=== PATIENT | female | born 1960 | race Caucasian/White ===

== ENCOUNTER 2021-12-22 15:51 | Outpatient (REF) | payer BC, SELFPAY ==
[2021-12-22 17:51] LABS: SARS PCR* Negative SARS-CoV-2 (Negative)
== END 2021-12-22 15:52 | disposition home or self-care (01) ==
LOC: NPINS 15:51
PROVIDERS: PCP Physician Assistant Medical; Visit Provider Podiatrist
DX: Z20.822 Contact with and (suspected) exposure to COVID-19 (principal)
CPT/HCPCS: 87635

== ENCOUNTER 2021-12-25 10:40 | Day surgery (SDC) | payer BC, SELFPAY ==
--- NOTE | 2021-12-25 10:42 | CRLHL7_ITS ---
For Patients: As a result of the Century Cures Act, medical imaging exams and procedure reports are released immediately into your electronic medical record. You may view this report before your referring provider. If you have questions, please contact your health care provider. Indication: INTRA OP LT BUNIONECTOMY Technique: Two fluoroscopic images of the left foot. Fluoroscopic time 25.0 seconds. IMPRESSION: Fluoroscopic guidance for Lapidus bunionectomy. Dictated by Julius Fischer MD @ 12/25/2021 3:51:24 PM (Electronically Signed)
[2021-12-25] MEDS: LACTATED RINGERS 1000 ML 1,000 ML 100 ML IV (11:30)
[2021-12-25] MEDS: SODIUM CHLORIDE 0.9 % (FLUSH) 10 ML SYRINGE IVF (15:48)
[2021-12-25 16:00] VITALS: BP 135/86; PULSE 78; RESP 16; TEMP 36.1; O2SAT 100
--- NOTE | 2021-12-25 16:00 | W.ANESCHARGE ---
Anesthesia Charges Start Date/Time Anesthesia Start Date: 12/25/21 Anesthesia Start Time: 13:37 Stop Date/Time Anesthesia Stop Date: 12/25/21 Anesthesia Stop Time: 15:56 Summary Emergency: No
[2021-12-25 16:15] VITALS: BP 135/86; PULSE 68; RESP 16; O2SAT 97
[2021-12-25 16:30] VITALS: BP 144/91; PULSE 68; RESP 16; O2SAT 97
--- NOTE | 2021-12-25 16:45 | PM.GSPRC ---
Operative Note Date of procedure: 12/25/21 Type of Procedure: 1. Lapidus bunionectomy left foot Procedure Description: After discussing the risks and benefits of the procedure, the patient signed informed consent.? The operative site was marked and the patient was brought to the operating room and placed on the operating table in supine position.? Care was taken to pad the patient's pressure points.?? The patient was then [intubated/given sedation] by anesthesia.?? The operative site was then prepped and draped in the usual sterile fashion.? A time-out was then performed. The left foot was exsanguinated and the tourniquet inflated to 250 mmHg. Dorsomedial incision was made over the 1st metatarsal cuneiform joint and extended down to the dorsal medial aspect of the 1st metatarsophalangeal joint. Incision is carried down through skin subcutaneous tissues. Blunt dissection was carried down to the joint capsule at the 1st MPJ. A T-shaped capsular incision was performed the capsular tissue reflected away from the 1st metatarsal head. Blunt dissection was carried down into the 1st intermetatarsal space. Standard lateral release was not performed releasing the plantar medial joint capsule, the dorsal fibular sesamoidal ligament, and the adductor tendon. We then retracted the extensor tendon laterally at the 1st metatarsal cuneiform joint. Neurovascular structures were carefully protected throughout the case. Joint was identified and incised. A dorsally placed joint distractor was applied and the joint distracted. Using combination of osteotome, curette and sagittal saw the opposing fusion surfaces were prepped down to bleeding subchondral bone. The opposing joint surfaces were then fenestrated with a drill and fish-scaled with an osteotome. Small stab incision was made over the dorsal aspect of the 2nd metatarsal neck. Blunt dissection was carried down to the lateral aspect of the metatarsal neck. The Lapifuse jig was applied and the 1st metatarsal was rotated and reduced in all 3 planes into the appropriate position. C-arm confirmed perfect alignment. Guide pin was then placed in the plantar medial 1st metatarsal base and driven across the fusion site into the middle cuneiform. C-arm confirmed position and a 4.0 cannulated screw was inserted using standard technique. Excellent compression noted across the fusion site. A plate was then applied to the dorsal medial aspect of the 1st metatarsal cuneiform joint fusion. It was anchored with 3.5 mm locking screws x4. The 1st metatarsal head was then remodeled using a sagittal saw and rotary bur. C-arm images confirmed excellent bunion correction and hardware placement. Redundant capsular tissue was excised. The operative site was thoroughly irrigated with normal sterile saline. The joint capsule was repaired with 3-0 Vicryl. Subcutaneous tissues reapproximated with 4-0 Monocryl. Skin closed with 4-0 Prolene. Sterile dressings were then applied. Tourniquet was released and capillary fill time returned to normal to all digits. Well-padded cam boot applied. The patient was then woken and transported to the recovery area in stable condition. The patient tolerated the procedure well. He will be discharged per Anesthesia. Both written and verbal postoperative instructions given. Oxycodone for pain. Weightbearing as tolerated to the heel in the Cam boot with crutch assistance. She will follow-up in 2-3 days. Implants: [place] Lapifuse plate, 3.5 mm cortical locking screws x4, 4.0 cannulated screw x1. Anesthesia: MAC Surgeon: Ben Sue DPM Estimated blood loss (mL): 10 Condition: stable Disposition: same day
--- NOTE | 2021-12-26 06:42 | W.ANESCHARGE ---
Anesthesia Charges Start Date/Time Anesthesia Start Date: 12/25/21 Anesthesia Start Time: 13:37 Stop Date/Time Anesthesia Stop Date: 12/25/21 Anesthesia Stop Time: 15:56 Summary Emergency: No
== END 2021-12-25 15:40 | disposition home or self-care (01) ==
PROVIDERS: PCP Physician Assistant Medical; Visit Provider Podiatrist
PROC: (CPT 28292; principal; 2021-12-25 12:30)
DX: M21.612 Bunion of left foot (principal); M20.12 Hallux valgus (acquired), left foot
CPT/HCPCS: 28297; 01480; 73620; 76000; J2250; J2704; J3010; J7120

== ENCOUNTER 2023-01-29 09:01 | Outpatient (CLI) | payer BC, SELFPAY ==
--- NOTE | 2023-01-29 09:15 | MR_ITS ---
[address] [address] Phone:?[phone] Fax:?[phone] Referring Physician Information: Francisco Chavez M.D. [id number] [facility] [address] Phone:?[phone] Fax:?[phone] Patient:Laya Souza D.O.B:?1960 Sex:?Female Phone:?[phone] [facility] MRN:?[id number] Exam Date:?01/29/2023 EXAM: MRI of the LEFT KNEE, without contrast CLINICAL HISTORY: Left knee pain. Evaluate for meniscal tear. COMPARISONS: MRI 11/18/2020. TECHNICAL: MR sequences of the left knee: sagittals: PD, PDFS coronals: PD, STIR axials: PD, T2 FS CONTRAST: None SEDATION: None FINDINGS: Bones: No fracture or destructive osseous lesion is seen. Patellofemoral joint: Cartilage: Intact. Retinacula: The medial and lateral retinacula are intact. Fat pads: The infrapatellar, quadriceps, and prefemoral fat pads are unremarkable. Knee joint: Effusion: Small left knee joint effusion. Popliteal cyst: Moderately sized perforated popliteal cyst. Intra-articular bodies: None. Posteromedial corner: The semimembranosus and pes anserine tendons are intact. Medial compartment: Medial meniscus: There is undersurface fraying versus ill-defined undersurface tear of the body/posterior horn junction of the medial meniscus measuring 4 mm in length best seen on sagittal images 11 and 12, new compared to previous MRI 11/18/2020. Focal edema-like signal within the peripheral portion of the medial tibial plateau likely reflects reactive bone marrow edema. Cartilage: No discrete chondral defect is seen. Lateral compartment: Lateral meniscus: There is free edge fraying of the body of the lateral meniscus, similar compared to previous MRI 11/18/2020. No unstable lateral meniscal tear is seen. Cartilage: Intact. Ligaments: Anterior cruciate ligament: Intact. Posterior cruciate ligament: Intact. Medial collateral ligament: Intact. Posterior oblique ligament: Intact. Fibular collateral ligament: Intact. Posterolateral corner: The distal biceps femoris tendon, iliotibial band, popliteus tendon, popliteus muscle, popliteofibular ligament, and arcuate ligament are intact. Extensor mechanism: Patellar tendon: Intact. Quadriceps tendon: Intact. There is mild to moderate deep infrapatellar bursitis. IMPRESSION: 1. Undersurface fraying versus ill-defined undersurface tear of the body/posterior horn junction of the medial meniscus measuring 4 mm in length, new compared to previous MRI 11/18/2020. Focal edema-like signal within the peripheral portion of the medial tibial plateau likely reflects reactive bone marrow edema. 2. Free edge fraying of the body of the lateral meniscus, similar compared to previous MRI 11/18/2020. No unstable lateral meniscal tear. 3. Small left knee joint effusion. Mild to moderate deep infrapatellar bursitis. Moderately sized perforated popliteal cyst. 4. No ligamentous injury of the left knee. RCB Electronically signed on 01/29/2023 1:07:00 PM by Lui Badillo M.D.
== END 2023-01-29 09:02 | disposition home or self-care (01) ==
PROVIDERS: PCP Physician Assistant Medical; Visit Provider Orthopaedic Surgery
DX: M25.562 Pain in left knee (principal); S83.242A Other tear of medial meniscus, current injury, left knee, initial encounter; M25.462 Effusion, left knee; M71.562 Other bursitis, not elsewhere classified, left knee
CPT/HCPCS: 73721

== ENCOUNTER 2023-02-14 06:04 | Day surgery (SDC) | payer BC, SELFPAY ==
[2023-02-14] VITALS (11 sets, daily range): BP systolic 91–139; BP diastolic 62–76; PULSE 48–65; RESP 14–16; TEMP 36.2–36.8; O2SAT 97–100; BMI 24.9
[2023-02-14] MEDS: SODIUM CHLORIDE 0.9 % (FLUSH) 10 ML SYRINGE IVF (06:30)
[2023-02-14] MEDS: LACTATED RINGERS 1000 ML 1,000 ML 100 ML IV (06:30)
[2023-02-14] MEDS: CEFAZOLIN 2 GM INJ IVP (07:25)
--- NOTE | 2023-02-14 07:55 | W.ANESCHARGE ---
Anesthesia Charges Start Date/Time Anesthesia Start Date: 02/14/23 Anesthesia Start Time: 07:19 Stop Date/Time Anesthesia Stop Date: 02/14/23 Anesthesia Stop Time: 08:09
[2023-02-14] MEDS: BUPIVACAINE 0.25% 30 ML INJECTION (07:59)
--- NOTE | 2023-02-14 08:08 | W.ANESCHARGE ---
Anesthesia Charges Start Date/Time Anesthesia Start Date: 02/14/23 Anesthesia Start Time: 07:19 Stop Date/Time Anesthesia Stop Date: 02/14/23 Anesthesia Stop Time: 08:09
--- NOTE | 2023-02-14 08:13 | P.ORPRC_ITS ---
Procedure Note Date of procedure: 02/14/23 Procedure: PREOPERATIVE DIAGNOSIS: Left knee medial meniscus tear POSTOPERATIVE DIAGNOSIS: Left knee medial meniscus tear NAME OF OPERATION: Left knee arthroscopic partial medial meniscectomy SURGEON: Francisco Chavez MD MEDICAL LIBRARY ASSISTANT: Em Garcia PA-C ANESTHESIA: Spinal ESTIMATED BLOOD LOSS: 0 mL COMPLICATIONS: None SPECIMENS: None DRAINS: None PREOPERATIVE ANTIBIOTICS: Ancef 2 gram INDICATIONS: The patient is a 62-year-old with a history of left knee medial pain. MRI scan is consistent with a medial meniscus tear. Despite appropriate nonoperative management, including activity modification, antiinflammatories, [id number] pain medication, bracing, physical therapy, and injections they continue to have pain and disability. Operative intervention was offered. The risks, benefits and expected outcomes were discussed in detail. These included but were not limited to: Infection, bleeding, injury to blood vessel or nerve, venous thromboembolism. All questions were answered to their satisfaction. PROCEDURE: Spinal anesthesia was administered. The patient was placed supine on the operating room table. The left lower extremity was prepped and draped in the usual sterile fashion. The limb was exsanguinated with the Jey bandage. The pneumatic tourniquet was inflated to 300 mmHg. A standard anterolateral portal was established. The arthroscope was introduced. The working portal was established anteromedially. Diagnostic arthroscopy was performed with findings as follows: The suprapatellar pouch is normal. Articular surface on the patella is normal. Articular surface on the trochlea is normal. The medial gutter is normal. The medial compartment shows a focal area of grade 2 change on the medial femoral condyle, normal articular cartilage on the medial tibial plateau. The medial meniscus has a degenerative tear of the midbody, into the posterior horn. This primarily consists of leading edge and undersurface degenerative fraying. The posterior root is intact. The notch shows the ACL to be intact. The lateral compartment shows normal articular cartilage on the lateral femoral condyle and lateral tibial plateau. The lateral meniscus has some degenerative fraying of the leading edge of the midbody. The lateral gutter is normal. The the leading edge and undersurface of the posterior horn and midbody of the medial meniscus was debrided to a stable base using a combination of baskets and max through both portals. Unstable chondral flaps on the medial femoral condyle were debrided with the shaver. Arthroscopic instruments were removed, the portal sites were Steri-Stripped closed, the knee was infiltrated with 30 mL of 0.25% Marcaine without epinephrine. A dry dressing was applied, the tourniquet was released. Sponge and needle counts were correct x 2. The patient tolerated the procedure well. There were no apparent complications. They were carefully transferred to the hospital bed and taken to the postanesthesia care unit in satisfactory condition. PLAN: The patient will be discharged to home. They may weightbear as tolerates. Range of motion will be unrestricted. They will follow up in the office next week for a wound check.
== END 2023-02-14 09:35 | disposition home or self-care (01) ==
PROVIDERS: PCP Physician Assistant Medical; Visit Provider Orthopaedic Surgery
PROC: (CPT 29870; principal; 2023-02-14 07:15)
DX: M23.222 Derangement of posterior horn of medial meniscus due to old tear or injury, left knee (principal)
CPT/HCPCS: 29881; 01400; J0665; J0690; J2250; J2704; J3010; J7120

== ENCOUNTER 2023-04-15 00:22 | Emergency (ER) | payer BC, SELFPAY ==
[2023-04-15 00:29] VITALS: BP 147/93; PULSE 104; RESP 20; TEMP 36.6; O2SAT 96; BMI 24.0
--- NOTE | 2023-04-15 00:46 | CRLHL7_ITS ---
For Patients: As a result of the Cures Act, medical imaging exams and procedure reports are released immediately into your electronic medical record. You may view this report before your referring provider. If you have questions, please contact your health care provider. INDICATION: Cough and chest burning, chest tightness TECHNIQUE: Chest radiograph 2 views COMPARISON: 08/25/2017 FINDINGS: Mediastinum: The mediastinum is normal in appearance. The heart silhouette is normal in size and morphology. Lung: Both lungs are unremarkable in appearance. No sign of pleural effusion seen. No pneumothorax is identified. Bone and Soft tissue: Unremarkable for age. IMPRESSION: 1. No acute cardiopulmonary disease is seen. Dictated by: Alex Vaughn MD @ 04/15/2023 01:06:48 (Electronically Signed)
--- NOTE | 2023-04-15 00:47 | ED_ITS ---
HPI - General Adult General Chief complaint: Cough Stated complaint: tightness in chest Time Seen by Provider: 04/15/23 00:22 Source: patient Mode of arrival: ambulatory Limitations: no limitations History of Present Illness HPI narrative: 62-year-old female with no prior history of COPD or tobacco use presents to the emergency department with a 4 to five-day history of cough, increasing in severity and frequency. It is not accompanied by any significant severe shortness of breath. Has started to get chest tightness which she associates only with cough. Has been using NyQuil, DayQuil and similar products with no significant improvement in her symptoms. No severe headache, no fever, no body aches. Has been exposed to similar illness from her boss at work. No international travel. No hemoptysis, no history of PE. No exertional symptoms. No history of coronary artery disease, heart disease or arrhythmias. Cough is nonproductive, described as a rattle. No history of asthma or COPD. Reports that she believes she did have pneumonia last year, uncomplicated. Symptoms initially started with postnasal drip and mild throat irritation which resolved within a day. Has progressed now to congestion, cough and chest rattle. Past medical history is notable only for GERD. Her only home medication is pantoprazole. Reports that she does get frequent ?sinus issues?. I am uncertain of the etiology of this. No prior history of chest or ENT surgeries. She has a sensitivity to azithromycin but no true allergy. Nonsmoker. No pertinent travel. ROS is notable for the chest and HEENT symptoms with postnasal drip and congestion as above. Otherwise denies times 12 systems. Related Data Home Medications Medication Instructions Recorded Confirmed cetirizine 10 mg tablet mg DAILY 12/25/21 02/20/23 fluticasone propionate 50 intranasal 12/25/21 02/20/23 mcg/actuation nasal spray,suspension [id number] sulfate .Route 12/25/21 02/20/23 pantoprazole 40 mg tablet,delayed mg PO 12/25/21 02/20/23 release Previous Rx's Medication Instructions Recorded albuterol sulfate 90 mcg/actuation 2 puff inhalation Q4-6H PRN 04/15/23 aerosol inhaler shortness of breath or wheezing #6.7 grams doxycycline hyclate 100 mg capsule 100 mg PO BID #14 caps 04/15/23 prednisone 20 mg tablet 20 mg PO DAILY #5 tabs 04/15/23 Allergies Allergy/AdvReac Type Severity Reaction Status Date / Time azithromycin Allergy Intermediate stomach Verified 04/15/23 00:29 pain PFSH PFSH Medical History Stress fracture ?M84.30XA - Stress fracture, unspecified site, initial encounter for fracture (ICD-10) Left shoulder pain ?M25.512 - Pain in left shoulder (ICD-10) Injury of left shoulder ?S49.92XA - Unspecified injury of left shoulder and upper arm, initial encounter (ICD-10) Encounter for preoperative screening laboratory testing for severe acute respiratory syndrome coronavirus 2 (SARS-CoV-2) ?Z01.812 - Encounter for preprocedural laboratory examination (ICD-10) ?Z20.822 - Contact with and (suspected) exposure to covid-19 (ICD-10) Recurrent sinusitis ?J32.9 - Chronic sinusitis, unspecified (ICD-10) Surgical History S/P arthroscopic partial medial meniscectomy of left knee (02/14/23) ?Z98.890 - Other specified postprocedural states (ICD-10) ?Z87.828 - Personal history of other (healed) physical injury and trauma (ICD-10) History of arthroscopic knee surgery ?Z98.890 - Other specified postprocedural states (ICD-10) History of bunionectomy of left great toe (12/25/21) ?Z98.890 - Other specified postprocedural states (ICD-10) History of bunionectomy (07/05/15) ?Z98.890 - Other specified postprocedural states (ICD-10) Status post right rotator cuff repair (02/15/17) ?Z98.890 - Other specified postprocedural states (ICD-10) Status post left rotator cuff repair (04/28/20) ?Z98.890 - Other specified postprocedural states (ICD-10) Hx of cholecystectomy ?Z90.49 - Acquired absence of other specified parts of digestive tract (ICD- 10) H/O total hysterectomy ?Z90.710 - Acquired absence of both cervix and uterus (ICD-10) Social History Smoking Status: Never smoker Do you use any of these nicotine containing products: None How often do you have a drink containing alcohol: monthly or less Alcohol type: hard liquor How many standard drinks containing alcohol do you have on a typical day: 1 or 2 How often do you have six or more drinks on one occasion: Never AUDIT-C Alcohol total score: 1 Non-prescribed substance use: denies use Caffeine: Yes Are you using contraception or practicing any form of control: No Exam Const: Vital Signs, click to edit/add: Vital Signs - 24 hr 04/15/23 00:29 Temperature 97.9 F Pulse Rate [Pulse Oximeter] 104 H Respiratory Rate 20 Blood Pressure [Ri ght Upper Arm] 147/93 H Pulse Oximetry 96 Oxygen Delivery Me thod Room Air Documenting provider has reviewed patient's vital signs: yes Common normals: no apparent distress General appearance: cooperative, comfortable and well kempt HENMT: Common normals: normocephalic Head and scalp: normocephalic Face and sinus: normal facial exam Mouth: oral and palatal mucosa normal Eye: Common normals: conjunctivae normal General eye: normal appearance of both eyes Conjunctiva: conjunctiva(e) normal Neck & C-Spine: Common normals: full ROM and no lymphadenopathy Resp: Common normals: normal respiratory effort and no use of accessory muscles Effort & inspection: able to speak in complete sentences Other: Coarse upper airway sounds which improved mostly but not completely with cough. Coarse rales in right lower lobes, most notable posteriorly. Cardio: Common normals: regular rate, regular rhythm, S1 normal heart sound, S2 normal heart sound and no murmurs Rate: regular rate Rhythm: regular rhythm Heart sounds: S1 normal and S2 normal GI: Common normals: Normal to inspection, nondistended, normoactive bowel sounds present, soft to palpation, no hepatosplenomegaly and no masses Palpation: soft and no hepatosplenomegaly Extremity: Common normals: normal to inspection and no pedal edema Neuro: Speech: speech normal Motor exam: no movement abnormalities noted Psych: Appearance: well kempt Mood and affect: euthymic mood Thought content: normal thought content Skin: Common normals: no rashes or lesions noted General skin exam: no rashes or lesions noted Course Course ED Course: No signs of sepsis, hypoxia order respiratory distress. Recommend swab for influenza, RSV and COVID, chest x-ray and EKG. Kaceyb. Await findings. Reevaluation(s) Time of Reevaluation #1: 01:37 Reevaluation #1: Coarse cough improved with nebulizer treatment by about half. No prolongation o f expiration respiratory distress noted. Viral studies reviewed with patient. Negative. Suspect bronchitis. Concern for early pneumonia as I can hear that rail down in the right base. Recommend doxycycline, will start 1st dose here in the ED. Would also benefit from prednisone and albuterol at home. We discussed risks and benefits of starting prednisone overnight like this. She does not sandoval ve any severe respiratory distress and is likely to get insomnia. I have recommended she wait until morning to start that medication. Prescriptions for prednisone once daily 20 mg, albuterol p.r.n., use discussed and a one-week course of 100 b.i.d. of doxycycline reviewed. Alarm symptoms discussed that would warrant repeat ED presentation, signs of treatment failure, etc.. She verbalizes understanding and agreement. Vital Signs Vital signs: Initial Vital Signs Temperature 97.9 F 04/15/23 00:29 Temperature Source Temporal Artery Scan 04/15/23 00:29 Pulse Rate 104 H 04/15/23 00:29 Pulse Rhythm Regular 04/15/23 00:29 Pulse Strength 3+ Normal 04/15/23 00:29 Respiratory Rate 20 04/15/23 00:29 Blood Pressure 147/93 H 04/15/23 00:29 Blood Pressure Mean 111 H 04/15/23 00:29 Blood Pressure Position Sitting 04/15/23 00:29 Pulse Oximetry 96 04/15/23 00:29 Oxygen Delivery Method Room Air 04/15/23 00:29 Vital Signs Temperature 97.9 F 04/15/23 00:29 Pulse Rate 104 H 04/15/23 00:29 Respiratory Rate 20 04/15/23 00:29 Blood Pressure 147/93 H 04/15/23 00:29 Pulse Oximetry 96 04/15/23 00:29 Oxygen Delivery Method Room Air 04/15/23 00:29 Temperature 97.9 F 04/15/23 00:29 Pulse Rate 104 H 04/15/23 00:29 Respiratory Rate 20 04/15/23 00:29 Blood Pressure 147/93 H 04/15/23 00:29 Pulse Oximetry 96 04/15/23 00:29 Oxygen Delivery Method Room Air 04/15/23 00:29 Medications Administered Medications: Discontinued Medications Generic Name Dose Route Start Last Admin Trade Name Toño PRN Reason Stop Dose Admin Albuterol/Ipratropium 1 neb 04/15/23 00:56 04/15/23 01:11 Iprat-Albut 0.5-2.5 Mg/3 Ml Neb IH 04/15/23 00:57 1 neb ONCE ONE Administration Medical Decision Making Lab Data Lab results reviewed: Yes I reviewed the patient's lab results Labs: Lab Results 04/15/23 Range/Units 00:32 SARS-CoV-2 (PCR) Negative SARS-CoV-2 (Negative) Influenza Type A (PCR) Negative PCR FLU A (Negative) Influenza Type B (PCR) Negative PCR FLU B (Negative) RSV (PCR) Negative PCR RSV (Negative) Imaging Data Chest x-ray: Attestation: I have reviewed the pertinent imaging results. My impression: Normal chest x-ray Radiologist's impression: IMPRESSION: 1. No acute cardiopulmonary disease is seen. Dictated by: Alex Vaughn MD @ 04/15/2023 01:06:48 ECG Data Attestation: I personally reviewed and interpreted this ECG as follows: Prior ECG tracings: not available for review Interpretation: Normal sinus rhythm, rate 95. No significant ST or T-wave abnormalities. Normal intervals, normal axis. Discharge Plan Discharge Clinical Impression: Bronchitis Patient Disposition: Home, Self-Care Condition: Stable Instructions: Acute Bronchitis (ED) Additional Instructions: As we discussed, your symptoms are consistent with bronchitis. Swabs for COVID, influenza and RSV were negative. I am concerned that he may be developing a pneumonia in the right lower lung base. I can hear it clearly on exam but it does not show up on chest x-ray. As we discussed, chest x-ray findings can lag behind clinical exam and illness symptoms. Because of this, I do recommend starting a low-grade antibiotic. We have started you on doxycycline and you were given your 1st dose here in the emergency department. I will send garrick tional supply to your pharmacy. As we discussed, the timing of your antibiotics will be a bit off because of the overnight initial dosing. I would like for you to try to take your next dose at 2-3 p.m today. Your 3rd dose will be Saturday upon awakening. The best medication to treat the inflammation is prednisone. You will take 1 pill tomorrow at about 2-3 p.m. with your doxycycline. Your next dose will be Saturday upon awakening. You will continue taking it once daily for a total of 5 days. For cough fits, I recommend an albuterol inhaler. I would recommend that you use this before bedtime, 2 puffs. If you wake with cough fits, take another 2 puffs every 2 hours as needed. You will likely only need this for a few days. As discussed, your cough will likely last about 4 weeks total. This is not a sign of treatment failure. If you are having severe shortness of breath, high fever, weakness or other signs of progressive illness, I would recommend re- evaluation. Activity Level: Activity as Tolerated Discharge Diet: Regular Prescriptions: New doxycycline hyclate 100 mg capsule 100 mg PO BID Qty: 14 0RF prednisone 20 mg tablet 20 mg PO DAILY Qty: 5 0RF albuterol sulfate 90 mcg/actuation HFA aerosol inhaler 2 puff inhalation Q4-6H PRN (Reason: shortness of breath or wheezing) Qty: 6.7 0RF No Action cetirizine 10 mg tablet DAILY fluticasone propionate 50 mcg/actuation spray,suspension INTRANASAL Patient Comments: SPRAY 1 SPRAY INTO BOTH NOSTRILS ONCE DAILY. [id number] sulfate [One Daily Multi-Vit w-Mineral] .Route pantoprazole 40 mg tablet,delayed release (/EC) PO Patient Comments: Take 1 Tablet by mouth once daily Follow Up/Referrals: Celia Nelson PA-C [Primary Care Provider] - Stand Alone Forms: [employer] Info Instructions
[2023-04-15] MEDS: IPRAT-ALBUT 0.5-2.5 MG/3 ML NEB 1 NEB IH (01:11)
[2023-04-15 01:21] LABS: PCR FLU A Negative PCR FLU A (Negative); PCR FLU B Negative PCR FLU B (Negative); PCR RSV Negative PCR RSV (Negative)
[2023-04-15 01:22] LABS: SARS PCR* Negative SARS-CoV-2 (Negative)
[2023-04-15] MEDS: DOXYCYCLINE HYCLATE 100 MG PO (02:07)
== END 2023-04-15 02:16 | disposition home or self-care (01) ==
PROVIDERS: Emergency Provider Family Medicine; PCP Physician Assistant Medical
DX: J40 Bronchitis, not specified as acute or chronic (principal)
CPT/HCPCS: 71046; 87631; 93005; 94640; 99284; 99285; A9270

== ENCOUNTER 2023-07-14 09:22 | Emergency (ER) | payer OTHER, BC, SELFPAY ==
[2023-07-14 09:27] VITALS: BP 164/94; PULSE 72; RESP 18; TEMP 36.6; O2SAT 98; BMI 24.0
--- NOTE | 2023-07-14 09:41 | CT_ITS ---
Final Report Patient: MAGDIEL CELAYA Facility:?[facility] Patient ID:?[id number] Site Patient ID:?[id number]. Site :?1960 Study:?CT Head w/o-07/14/2023 10:06:07 AM Ordering Physician:Meeta Final Report: INDICATION: Vision issues after fall on TECHNIQUE: CT head without contrast. COMPARISON: None. FINDINGS: CSF spaces: Within normal limits for age. Brain parenchyma and extra-axial spaces: The byrd-white differentiation is normal. No sign of mass, hemorrhage, or midline shift. No extra-axial fluid collection. Skull base and calvarium: The visualized paranasal sinuses and mastoid air cells demonstrate no acute or significant findings. The visualized orbits are grossly unremarkable. No skull fractures. IMPRESSION: Unremarkable noncontrast head CT. Dictated by Navid Glez MD @ 07/14/2023 10:26:56 AM Please note that all CT scans at this facility use dose modulation, iterative reconstruction, and/or weight-based dosing when appropriate to reduce radiation dose to as low as reasonably achievable. Dictated by: Navid Glez MD @ 07/14/2023 10:27:01 (Electronic Signature)
--- NOTE | 2023-07-14 09:41 | CT_ITS ---
Final Report Patient: MAGDIEL CELAYA Facility:?[facility] Patient ID:?[id number] Site Patient ID:?[id number]. Site :?[id number] Study:?CT Spine Cervical w/o-07/14/2023 10:09:02 AM Ordering Physician:Meeta Final Report: INDICATION: Fall TECHNIQUE: CT cervical spine without contrast. COMPARISON: None FINDINGS: Vertebrae: Slight degenerative anterolisthesis at C3-4 and retrolisthesis at C5- 6. There are no fractures or suspicious bony lesions. Discs and facet joints: Multilevel spondylosis and facet arthrosis. Extraspinal findings: Prevertebral soft tissues, visualized airway, and visualized lungs are unremarkable. IMPRESSION: No acute cervical spine findings. Dictated by Navid Glez MD @ 07/14/2023 10:31:48 AM Please note that all CT scans at this facility use dose modulation, iterative reconstruction, and/or weight-based dosing when appropriate to reduce radiation dose to as low as reasonably achievable. Dictated by: Navid Glez MD @ 07/14/2023 10:31:55 (Electronic Signature)
--- OUTSIDE RECORDS SUMMARY | 2023-07-14 10:11 | XMS_ITS | Clinical Summary ---
Author Name Unknown Organization [employer] [facility] [employer] [facility] Address [place], [place] [address] Care Team Providers Care Material Analyst Name Role Phone Celia Nelson Primary Care Provider Allergies Active Allergy Reactions Criticality Noted Date Comments Azithromycin Stomach Upset 08/24/2018 Stomach ache Medications Medication Sig Dispensed Refills Start Date End Date Status olhwymbg-kco-RG-h erbal no.245 200 mcg- 37.5 mg chew Take 2 gum by mouth. 0 08/26/2017 Active cetirizine (ZYRTEC) 10 mg tablet Take 1 tablet by mouth once daily. 0 04/22/2020 Active fluticasone (50 mcg per actuation) nasal solution (FLONASE)Indicati ons:Recurrent sinusitis Inhale 2 Sprays into both nostrils once daily. INHALE 1 SPRAY INTO BOTH NOSTRILS ONCE DAILY. 3 g 4 04/22/2020 Active pantoprazole (PROTONIX) 20 mg tabletIndications :Chronic GERD Take 1 Tablet (20 mg) by mouth once daily. 90 Tablet 3 04/16/2023 06/21/2023 Discontinued( *Patient states no longer taking) amoxicillin-clavu lanate 875-125 mg tablet (AUGMENTIN)Indica tions:Acute recurrent maxillary sinusitis Take 1 Tablet by mouth two times daily with meals for 10 days. 20 Tablet 0 06/21/2023 07/01/2023 Active Problems Problem Noted Date Diagnosed Date H/O total hysterectomy 09/20/2021 Routine adult health maintenance 07/23/2013 Overview: Colonoscopy 06/2013 incomplete colonoscopy, recommend BE Recurrent sinusitis 02/13/2010 Encounters Date Type Department Care Team Description 07/11/2023 2:00 PM HOSPITALITY MANAGER Ancillary Procedure [facility] [address] [place] [place] [address] Arrived 07/11/2023 Travel 06/21/2023 2:40 PM HOSPITALITY MANAGER Office Visit [facility] [address] [place] [address] Celia Nelson PA Follow Up (Recent sinus infection - feeling better but still a little congested ); Derm Problem (Spot above right eye on forehead); Knee Pain/problem (Left knee pain - recently on levaquine and read one of the side effects was torn ligaments. Left knee was repaired by at the end of December. ) 06/21/2023 Travel 06/04/2023 4:00 PM HOSPITALITY MANAGER Ancillary Procedure [facility] [address] [place] [address] 06/04/2023 Travel 05/30/2023 2:05 PM HOSPITALITY MANAGER Office Visit [address] [address] Jackie Valentino PA Follow Up (Was recently prescribed Augmentin for an URI on 05/22. She finished the antibiotic and is still experiencing yellow/green mucous, head congestion, and some chest discomfort when she coughs. ) 05/30/2023 Travel 04/16/2023 9:00 AM HOSPITALITY MANAGER Ancillary Procedure [address] [address] 04/16/2023 8:45 AM HOSPITALITY MANAGER Ancillary Procedure [address] [address] 04/16/2023 8:20 AM HOSPITALITY MANAGER Ancillary Procedure [address] [address] 04/16/2023 7:30 AM HOSPITALITY MANAGER Office Visit [address] [address] Celia Nelson PA Physical (62 years old) 04/16/2023 Travel 04/15/2023 Orders Only [facility] Scanner 1 scan: (1-Ord) [facility], XR CHEST 2V, 04/15/2023 from Last 3 Months Immunizations Name Administration Dates Next Due COVID-19 vaccine (PresenceID-Bio NTech 30mcg/0.3mL) 12YO+ BIVALENT PF, MDV 04/17/2022 COVID-19 vaccine (Pfizer-Bio NTech 30mcg/0.3mL) PF, MDV 04/18/2021,10/06/2020,09/15/2020 Influenza A (H1N1), Inactivated 04/14/2009 Influenza A (H1N1), Inactiva shruti (Age >=3 Years) 04/14/2009 Influenza RIV4 (Age 18+ Year s) PRESERV FREE 03/12/2022 Influenza, IIV3 (Age 6-35 mos) 05/02/2009 Influenza, IIV3 (Age >=3 years) 02/25/20 13,03/27/2011,05/02/2009,2002 Influenza, IIV4 03/30/2023,,02/28/2019,2017,03/15/2016,04/25/2015,04/12/2014 Influenza, IIV4 (=>6mos) MDV 03/13/2020,02/07/20 17 Td (Age >=7 Years) 11/24/2003 Tdap 03/23/2011 Zoster (Shingrix-RZV, recombinant) 10/02/2019, Zoster (Zostavax-ZVL, live) 04/10/2013 Family History Medical History Relation Name Comments Other Brother 4 afib Other Father afib, obese Other Mother Other Sister 3 ra Cancer-breast No Family History Relation Name Status Comments Brother 1 Alive Brother 2 Alive Brother 3 Alive Brother 4 Father Alive Mother Alive Sister 1 Alive Sister 2 Alive Sister 3 Social History Tobacco Use Types Packs/Day Years Used Date Smoking Tobacco: Never Smokeless Tobacco: Never Tobacco Cessation:Counseling Given: Yes Alcohol Use Standard Drinks/Week Comments Yes 0 (1 standard drink = 0.6 oz pur e alcohol) PHQ-2 Answer Date Recorded PHQ-2 TOTAL SCORE 0 02/06/2022 Social Connections Answer Date Recorded Frequency of Communication with Friends and Fami ly 0 01/17/2023 Financial Resource Strain Answer Date R ecorded Difficulty of Paying Living Expenses 3 01/17/2023 Difficulty of Paying Living Expenses Not on file 01/17/2023 Food Insecurity Answer Date Recorded Worried About Running Out of Food in the Last Ye ar 1 01/17/2023 Transportation Needs Answer Date Record ed Lack of Transportation (Medical) 1 01/17/2023 Housing Stability Answer Date Recorded Unable to Pay for Housing in the Last Year 1 01/17/2023 Sex and Gender Information Value Date Recorded Sex Assigned at Not on file Gender Identity Not on file Sexual Orientation Not on file Obstetrics History Para Term AB IAB SAB Ectopic Multiple Livin g Live Births 3 3 3 Date Outcome GA Total Labor Labor//3rd Weight Sex Delivery Anes PTL Aileen A1 A5 Name Cl in Term Term Term Last Filed Vital Signs Vital Sign Reading Time Taken Comments Blood Pressure 133/82 06/21/2023 2:36 PM HOSPITALITY MANAGER Pulse 65 06/21/2023 2:36 PM HOSPITALITY MANAGER Temperature 36.8 ??C (98.2 ??F) 05/30/2023 2:02 PM CS T Respiratory Rate 16 02/12/2023 3:42 PM CDT Oxygen Saturation 96% 06/21/2023 2:36 PM HOSPITALITY MANAGER Inhaled Oxygen Concentration - - Weight 54.9 kg (121 lb) 05/30/2023 2:02 PM HOSPITALITY MANAGER Height 148.6 cm (4' 10.5) 04/16/2023 7:33 AM CS T Body Mass Index 24.86 04/16/2023 7:33 AM HOSPITALITY MANAGER Plan of Treatment Upcoming Encounters Date Type Department Care Team (Late st Contact Info) Description 07/18/2023 3:30 PM HOSPITALITY MANAGER Office Visit [address] [phone] Marlon Kaplan-Riaz Tabor MD [address] [facility] [address] [facility] [address] [place] [address] Health Maintenance Due Date Last Done Comments HIV for age 15-65 1973 Tetanus booster 03/23/2021 03/23/2011, 11/24/2003 Depression screening for age 12+ 02/07/2023 02/07/2022, 02/06/2022, 04/15/2020, Additional history exists Colonoscopy through age 75 07/23/2023 07/23/2013 BMI (ht and wt on same day) for age 18+ 04/16/2024 04/16/2023, 02/12/2023, 01/17/2023, Additional history exists Mammogram for age 45-75 04/16/2024 04/16/20, 04/17/2022, 04/18/2021, Additional history exists Lipids for age 45-75 04/16/2028 04/16/2023, 04/17/2022, 04/18/2021, Additional history exists Tdap Completed 03/23/2011 Hepatitis C screening for age 18-79 Completed 04/25/2015 Zoster (shingles) series for age 50+ Completed 10/02/2019, 04/21/2019, 04/10/2013 Influenza for age 50-64 Completed 03/30/20, 03/12/2022, 04/29/2021, Additional history exists COVID-19 vaccine series Completed 05/11/20, 04/17/2022, 04/18/2021, Additional history exists Pneumococcal series for age 6-64 Aged Out No longer eligible based on patient's age to complete this topic Procedures Procedure Name Priority Date/Time Associated Diagnosis Comments MR KNEE LEFT WO Routine 07/11/2023 2:11 PM HOSPITALITY MANAGER Pain and swelling of left knee Positive Hung test of left knee, initial encounter CT SINUS WO Routine 06/04/2023 4:04 PM HOSPITALITY MANAGER Recurrent sinus infections XR DXA BONE DENSITY 2 SITES AXIAL Routine 04/16/2023 9:12 AM HOSPITALITY MANAGER Post menopausal syndrome GLUCOSE, FASTING Routine 04/16/2023 9:04 AM HOSPITALITY MANAGER Screening for diabetes mellitus LIPID PANEL W REFLEX MEASURED LDL Routine 04/16/2023 9:04 AM HOSPITALITY MANAGER Screening cholesterol level XR FOOT 3 VIEWS LEFT Routine 04/16/2023 8:34 AM HOSPITALITY MANAGER Foot pain, left Foot injury, left, initial encounter XR MAMMO WYATT BILAT SCREEN Routine 04/16/2023 8:33 AM HOSPITALITY MANAGER Visit for screening mammogram SCAN-RADIOLOGY REPORT 04/15/2023 12:00 AM HOSPITALITY MANAGER from Last 3 Months Results * MR KNEE LEFT WO (07/11/2023 2:11 PM HOSPITALITY MANAGER) Anatomical Region Laterality Modality KNEE L Magnetic Resonan ce Narrative 07/12/2023 8:05 AM HOSPITALITY MANAGER History: Left knee pain and swelling. Technique: Noncontrast MRI of the left knee. Comparison: No prior. Findings: Medial compartment: Medial meniscus: Scarring is noted involving the medial patellar retinaculum and fat within the medial aspect of Hoffa's fat pad which may relate to prior arthroscopy. ??Subtle sequelae of undersurface tearing of the posterior horn and body junction region of the medial meniscus on coronal PD fat-sat image #15 of series 7 where there is subtle horizontal meniscal signal with undersurface contact. ??Correlation with prior arthroscopic findings if known is suggested. Articular cartilage: Mild thinning of the articular cartilage (grade 2). Lateral compartment: Lateral meniscus: Slightly attenuated free edge of the lateral meniscal body. ??Lateral meniscus otherwise intact. Articular cartilage: Maintained. Patellofemoral compartment: Articular cartilage is maintained. Ligaments: The anterior and posterior cruciate ligaments are intact. ??Mild chronic thickening of the MCL. ??Mild adjacent edema. ??Lateral collateral complex is intact. Extensor mechanism: Distal quadriceps tendon and patellar tendon are intact. ??No disruption of the medial or lateral patellar restraints. ??No patellar subluxation or bessie. Joint space: Small joint effusion. Bones and soft tissues: There is an area of erosion involving the posterior medial distal femur in the region of the medial head gastrocnemius attachment site with associated bone edema. ??Mild adjacent soft tissue edema along with tendinosis of the proximal medial head of the gastrocnemius. ??A small popliteal cyst is present. ??Small areas of bone edema are noted involving the medial aspect and femoral condyle and medial tibial plateau may relate to contusion, subchondral marrow changes related to limited grade 4 chondromalacia or mild stress change. Impression: 1. ??Subtle sequelae of undersurface tearing of the posterior horn and body junction region medial meniscus. ??Recommend correlation with any history of partial meniscectomy in that region as signal conversion changes status post partial meniscectomy could appear similarly. 2. ??Mild medial compartment articular cartilage wear (grade 2). ??Small areas of subchondral bone marrow edema involving the medial femoral condyle and medial tibial plateau. 3. ??Tendinosis of the proximal medial head of the gastrocnemius with peritendinitis changes. ??Small erosion at its femoral attachment with reactive bone marrow edema. 4. ??Small joint effusion. 5. ??Popliteal cyst. Celia CORNELIUS MR * CT SINUS WO (06/04/2023 4:04 PM HOSPITALITY MANAGER) Anatomical Region Laterality Modality SINUS Computed Tomogra phy 06/06/2023 4:00 PM HOSPITALITY MANAGER Impressions 06/06/2023 4:00 PM HOSPITALITY MANAGER 1. New CT changes compatible with sinusitis involving the maxillary and less so sphenoid sinuses with nodular and curvilinear soft tissue densities inferior and peripherally particularly within the maxillary sinuses. 2. Associated polyps or retention cysts in the maxillary sinuses could not be entirely excluded. 3. Patent ostiomeatal complexes. Normal turbinates. Please note that all CT scans at this facility use dose modulation, iterative reconstruction, and/or weight-based dosing when appropriate to reduce radiation dose to as low as reasonably achievable. Dictated by Wallace Mcnamara MD @ Jun 06 2023 ??4:00PM (Electronically Signed) ?? Narrative 06/06/2023 4:00 PM HOSPITALITY MANAGER For Patients: ??As a result of the Century Cures Act, medical imaging exams and procedure reports are released immediately into your electronic medical record. ??You may view this report before your referring provider. ??If you have questions, please contact your health care provider. INDICATION: Recurrent sinus infections. TECHNIQUE : Noncontrast CT of the paranasal sinuses. Axial, sagittal, and coronal reconstructed images were obtained. Bone and soft tissue algorithms utilized. COMPARISON: August 26, 2017. FINDINGS: New partly opacified bilateral maxillary sinuses with nodular and curvilinear soft tissue along the peripheral aspect in the inferior aspect of each maxillary sinus. This likely reflects a combination of mucosal thickening as well as possibly polyps or retention cysts. Minor mucosal thickening within the posterior aspect of the sphenoid sinuses right minimally more affected than the left. Trace mucosal thickening within 1 or 2 anterior ethmoid air cells. Clear frontal sinuses. Diminutive right frontal sinus relative to the left. Patent ostiomeatal complexes. Normal turbinates. No nasal septal deviation. Degenerative change of the temporomandibular joints. No bony destructive lesions. Procedure Note Wallace Mcnamara MD - 06/06/2023 For Patients: As a result of the Cures Act, medical imagingexams and procedure reports are released immediately into your electronicmedical record. You may view this report before your referring provider.If you have questions, please contact your health care provider. INDICATION: Recurrent sinus infections. TECHNIQUE : Noncontrast CT of the paranasal sinuses. Axial, sagittal, and coronal reconstructed images were obtained. Bone and soft tissue algorithms utilized. COMPARISON: August 26, 2017. FINDINGS: New partly opacified bilateral maxillary sinuses with nodular andcurvilinear soft tissue along the peripheral aspect in the inferior aspectof each maxillary sinus. This likely reflects a combination of mucosal thickening as well aspossibly polyps or retention cysts. Minor mucosal thickening within the posterior aspect of the sphenoidsinuses right minimally more affected than the left. Trace mucosal thickening within 1 or 2 anterior ethmoid air cells. Clear frontal sinuses. Diminutive right frontal sinus relative to theleft. Patent ostiomeatal complexes. Normal turbinates. No nasal septaldeviation. Degenerative change of the temporomandibular joints. No bony destructivelesions. IMPRESSION: 1. New CT changes compatible with sinusitis involving the maxillary andless so sphenoid sinuses with nodular and curvilinear soft tissuedensities inferior and peripherally particularly within the maxillarysinuses. 2. Associated polyps or retention cysts in the maxillary sinuses could notbe entirely excluded. 3. Patent ostiomeatal complexes. Normal turbinates. Please note that all CT scans at this facility use dose modulation,iterative reconstruction, and/or weight-based dosing when appropriate toreduce radiation dose to as low as reasonably achievable. Dictated by Wallace Mcnamara MD @ Jun 06 2023 4:00PM (Electronically Signed) Jackie CORNELIUS CT * (ABNORMAL) XR DXA BONE DENSITY 2 SITES AXIAL (04/16/2023 9:12 AM HOSPITALITY MANAGER) Anatomical Region Laterality Modality Spine, HIPS, HIPL, HIPR Other Impressions 04/24/2023 9:06 AM HOSPITALITY MANAGER Osteopenia. RECOMMENDATIONS: The National Osteoporosis Foundation recommends pharmacologic treatment for patients with T-scores of -2.5 or less, patients with prior history of fragility fractures, or patients with 10-year probability of greater than 3% at hips or greater than 20% of suffering major osteoporotic fractures. Recommend continued optimization of calcium and vitamin D intake through dietary means and/or supplementation and regular exercise. Repeat scan recommended in 2-3 years. Celia Nelson PA-C [facility] 04/24/2023 ?? Narrative 04/24/2023 9:06 AM HOSPITALITY MANAGER For Patients: Results are automatically released to your [employer] ([employer]) account once available, in compliance with federal regulations. This means that you may see your results before your provider has had a chance to review them. Please allow 2-3 business days for your provider to comment on the results. XR DXA Bone Mineral Density (BMD) EXAM LOCATION: [address] [address] PATIENT NAME: Joo Souza DATE OF : 1960 EXAM DATE: 04/16/2023 REQUESTING PROVIDER: Celia Nelson PA GENDER AT : female HEIGHT: 4' 10.5 (04/16/2023) WEIGHT: ??121 lb (04/16/2023) MENOPAUSAL STATUS: Postmenopausal RACE/ETHNICITY: White RISK FACTORS: Rheumatoid Arthritis, Weight < 127 lbs., and White Race CURRENT MEDICATION FOR BONE LOSS: NONE INDICATION: Post-Menopause COMPARISON DATE(S): 2013 DXA scans are compared to prior studies for a patient only when the two (or more) studies were performed on the same scanner. It is not possible to compare data generated on one scanner to data from another because there are not standards in DXA equipment. This applies even if the two scanners are made by the same data typist. PROCEDURE: Dual-energy x-ray absorptiometry performed with routine technique. Reporting is completed in the form of a T-score. The T-score represents the standard deviation from peak bone mass based on young healthy adult. A Z-score is used for diagnosis in premenopausal women, and for men under the age of 50. FINDINGS: RESULT LUMBAR SPINE L1-L3 (L4) ??BMD: 0.997 g/cm2 T-Score: - 1.5 Z-Score: + 0.4 Change from prior in 2014: ??Decrease 6.3%. RESULTS FEMUR Left femoral neck BMD: 0.742 g/cm2 T-Score: - 2.1 Z-Score: - 0.5 Change from prior in 2014: ??Decrease 5.6%. Right femoral neck BMD: 0.725 g/cm2 T-Score: - 2.3 Z-Score: - 0.6 Change from prior in 2014: ??Decrease 8.6%. Left hip BMD: 0.785 g/cm2 T-Score: - 1.8 Z-Score: - 0.4 Change from prior in 2013: ??Decrease 7.6%. Right hip BMD: 0.781 g/cm2 T-Score: - 1.8 Z-Score: - 0.4 Change from prior in 2013: ??Decrease 6.9%. WHO criteria: Normal: T-score at or above -1 SD Osteopenia: T-score between -1.1 and -2.4 SD Osteoporosis: T-score at or below -2.5 SD FRAX RISK CALCULATION (USED FOR OSTEOPENIA ONLY): 10-year probability of major osteoporotic fracture: 15.3%. 10-year probability of hip fracture: 3.0%. Celia CORNELIUS DEXA * (ABNORMAL) LIPID PANEL W REFLEX MEASURED LDL (04/16/2023 9:04 AM HOSPITALITY MANAGER) [facility] CHOLESTEROL,TOTAL 209(H) 100 - 199 mg/dL 04/16/2023 6:29 PM HOSPITALITY MANAGER [facility] Comment: Cholesterol, Total Reference Ranges Desirable <200 mg/dL Borderline 200-239 mg/dL High >=240 mg/dL TRIGLYCERIDES 65 <150 mg/dL 04/16/2023 6:29 PM HOSPITALITY MANAGER [facility] HDL CHOLESTEROL 79 >40 mg/dL 6:29 PM HOSPITALITY MANAGER [facility] NON-HDL CHOLESTEROL 130 <145 mg/dl 04/16/2023 6:29 PM HOSPITALITY MANAGER [facility] CHOL/HDL RATIO 2.65 <4.50 04/16/2023 6:29 PM HOSPITALITY MANAGER [facility] LDL CHOLESTEROL 117 <=130 mg/dL 04/16/2023 6:29 PM HOSPITALITY MANAGER [facility] VLDL CHOLESTEROL 13 <=30 mg/dL 04/16/2023 6:29 PM HOSPITALITY MANAGER [facility] PROVIDER ORDERED STATUS RANDOM 04/16/2023 6:29 PM HOSPITALITY MANAGER [facility] Blood BLOOD SPECIMEN / Unknown Venipuncture / Unknown 04/16/2023 9:04 AM HOSPITALITY MANAGER 04/16/2023 9:05 AM HOSPITALITY MANAGER Celia COR[facility]ELIUS [facility] [address] [place] [id number], * GLUCOSE, FASTING (04/16/2023 9:04 AM HOSPITALITY MANAGER) [facility] GLUCOSE 96 70 - 99 mg/dL 04/16/2023 9:19 AM HOSPITALITY MANAGER [facility] Blood BLOOD SPECIMEN / Unknown Venipuncture / Unknown 04/16/2023 9:04 AM HOSPITALITY MANAGER 04/16/2023 9:05 AM HOSPITALITY MANAGER Celia CORNELIUS CHEMISTRY [facility] [address] [place] [address], * XR FOOT 3 VIEWS LEFT (04/16/2023 8:34 AM HOSPITALITY MANAGER) Anatomical Region Laterality Modality FEET, FOOT L Computed Radiogr aphy 04/17/2023 6:02 PM HOSPITALITY MANAGER Narrative 04/17/2023 6:02 PM HOSPITALITY MANAGER For Patients: ??As a result of the 21st Century Cures Act, medical imaging exams and procedure reports are released immediately into your electronic medical record. ??You may view this report before your referring provider. ??If you have questions, please contact your health care provider. Indication: Injury and pain Technique: Left foot 3 views. Comparison: None Findings: Small calcaneal spurs. Intact fusion hardware across the medial midfoot. Chronic changes at the 1st MTP joint. No acute fracture. Incidental nutrient foramina involving the 4th toe proximal phalanx. Impression: Metatarsals appear intact. No sign of acute injury. Dictated by Julius Ficsher MD @ Apr 17 2023 ??6:02PM (Electronically Signed) ?? Procedure Note Julius Fischer MD - 04/17/2023 For Patients: As a result of the s , medical imagingexams and procedure reports are released immediately into your electronicmedical record. You may view this report before your referring provider.If you have questions, please contact your health care provider. Indication: Injury and pain Technique: Left foot 3 views. Comparison: None Findings: Small calcaneal spurs. Intact fusion hardware across the medial midfoot.Chronic changes at the 1st MTP joint. No acute fracture. Incidentalnutrient foramina involving the 4th toe proximal phalanx. Impression: Metatarsals appear intact. No sign of acute injury. Dictated by Julius Fischer MD @ Apr 17 2023 6:02PM (Electronically Signed) Celia CORNELIUS GENER[facility] * XR MAMMO WYATT BILAT SCREEN (04/16/2023 8:33 AM HOSPITALITY MANAGER) Anatomical Region Laterality Modality BREASTS, Breast Left, Breast Right Bilateral Mammography Impressions 04/17/2023 4:21 PM HOSPITALITY MANAGER ??There is no radiographic evidence for malignancy. ??Recommend annual mammograms. MAMMOGRAM ASSESSMENT: ??ACR 1 Negative PATIENTS: You will also receive a letter with your examination results in an easy to read format. ??If you have questions about your results, please contact your referring provider. Narrative 04/17/2023 4:21 PM HOSPITALITY MANAGER For Patients: As a result of the s , medical imaging exams and procedure reports are released immediately into your electronic medical record. You may view this report before your referring provider. If you have questions, please contact your health care provider. XR MAMMO WYATT BILAT SCREEN [[id number]] CLINICAL HISTORY: ??This is an asymptomatic 62 y.o. patient. INDICATION FOR EXAM: Mammogram Screening. TECHNIQUE: CC & MLO views were obtained. ??This study was evaluated with the assistance of Computer-Aided Detection. Breast Tomosynthesis was used in interpretation. COMPARISON FILM: Yes 04/17/22 [facility] 04/18/21 [facility] FINDINGS: ??The breasts are heterogeneously dense, which may obscure small masses. There are no dominant masses, suspicious micro calcifications or areas of architectural distortion. Celia CORNELIUS MAMMO * SCAN-RADIOLOGY REPORT (04/15/2023 12:00 AM HOSPITALITY MANAGER) Anatomical Region Laterality Modality Other Scanner OTHER from Last 3 Months Care Teams Material Analyst Relationship Specialty Start Date End Date Celia Nelson PA [address] [place] [address] PCP - General Family Practice 11/01/14
--- NOTE | 2023-07-14 10:12 | ED.GENADULT ---
HPI - General Adult General Date Seen: 07/14/23 Chief complaint: Eye Problems Stated complaint: vision issues after fall Time Seen by Provider: 07/14/23 09:33 Source: patient Mode of arrival: ambulatory Limitations: no limitations History of Present Illness HPI narrative: Patient is a 62-year-old woman who had a fall on , presents to the ER on Saturday. She slipped backwards, hitting the back of her head on the ground. She did not have loss of consciousness. She has had pain and tenderness where she hit her head as well as a mild headache. She has also had intermittent flashes of light in her right eye. 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 She has not had vision loss. She also notes pain in her neck. She does not have symptoms of vertigo or nausea. Pain in the neck has worsened in the couple of days since the fall. She is not anticoagulated. Related Data Home Medications Medication Instructions Recorded Confirmed cetirizine 10 mg tablet mg DAILY 12/25/21 02/20/23 fluticasone propionate 50 intranasal 12/25/21 02/20/23 mcg/actuation nasal spray,suspension ibwylrfh-rkp-cuktacy sulfate .Route 12/25/21 02/20/23 pantoprazole 40 mg tablet,delayed mg PO 12/25/21 02/20/23 release cetirizine 10 mg tablet (24Hour 5 mg PO DAILY PRN 07/14/23 07/14/23 Allergy) pantoprazole 20 mg tablet,delayed 20 mg PO DAILY 07/14/23 07/14/23 release Previous Rx's Medication Instructions Recorded albuterol sulfate 90 mcg/actuation 2 puff inhalation Q4-6H PRN 04/15/23 aerosol inhaler shortness of breath or wheezing #6.7 grams doxycycline hyclate 100 mg capsule 100 mg PO BID #14 caps 04/15/23 prednisone 20 mg tablet 20 mg PO DAILY #5 tabs 04/15/23 Allergies Allergy/AdvReac Type Severity Reaction Status Date / Time azithromycin Allergy Intermediate stomach Verified 07/14/23 09:32 pain Review of Systems Status of ROS: Reports: 10 or more systems reviewed and unremarkable except as noted in History and below [facility] Medical History Stress fracture ?M84.30XA - Stress fracture, unspecified site, initial encounter for fracture (ICD-10) Left shoulder pain ?M25.512 - Pain in left shoulder (ICD-10) Injury of left shoulder ?S49.92XA - Unspecified injury of left shoulder and upper arm, initial encounter (ICD-10) Encounter for preoperative screening laboratory testing for severe acute respiratory syndrome coronavirus 2 (SARS-CoV-2) ?Z01.812 - Encounter for preprocedural laboratory examination (ICD-10) ?Z20.822 - Contact with and (suspected) exposure to covid-19 (ICD-10) Recurrent sinusitis ?J32.9 - Chronic sinusitis, unspecified (ICD-10) Surgical History S/P arthroscopic partial medial meniscectomy of left knee (02/14/23) ?Z98.890 - Other specified postprocedural states (ICD-10) ?Z87.828 - Personal history of other (healed) physical injury and trauma (ICD-10) History of arthroscopic knee surgery ?Z98.890 - Other specified postprocedural states (ICD-10) History of bunionectomy of left great toe (12/25/21) ?Z98.890 - Other specified postprocedural states (ICD-10) History of bunionectomy (07/05/15) ?Z98.890 - Other specified postprocedural states (ICD-10) Status post right rotator cuff repair (02/15/17) ?Z98.890 - Other specified postprocedural states (ICD-10) Status post left rotator cuff repair (04/28/20) ?Z98.890 - Other specified postprocedural states (ICD-10) Hx of cholecystectomy ?Z90.49 - Acquired absence of other specified parts of digestive tract (ICD-10) H/O total hysterectomy ?Z90.710 - Acquired absence of both cervix and uterus (ICD-10) Social History Smoking Status: Never smoker Do you use any of these nicotine containing products: None How often do you have a drink containing alcohol: monthly or less Alcohol type: hard liquor How many standard drinks containing alcohol do you have on a typical day: 1 or 2 How often do you have six or more drinks on one occasion: Never AUDIT-C Alcohol total score: 1 Non-prescribed substance use: denies use Caffeine: Yes Are you using contraception or practicing any form of control: No service: No Exam Narrative: Exam Narrative: Vital signs as noted above. In general, an alert, well-appearing patient. Head: Normocephalic, atraumatic. Some tenderness in the occiput without hematoma or bruising. Eyes: Pupils are equal reactive. Extraocular movements are full. Conjunctivae are normal. Normal red light reflexes. Nondilated exam of the right eye shows grossly normal appearing retina, no obvious hemorrhage. ENT: Mucous membranes are moist. No facial trauma. Neck: Supple without lymphadenopathy. Diffusely tender, primarily in the musculature. Heart: Regular rate and rhythm. No murmur or rub. Lungs: Clear bilaterally. No increased work of breathing, crackles or wheezes. Abdomen: Soft and nontender. No organomegaly. Extremities: Well perfused. No edema. No calf tenderness. Pulses intact. Neurologic: Patient is alert and oriented to person and place. Speech is fluent. Face is symmetric. Moves all extremities equally. Affect: Normal. Skin: Warm and dry. Well perfused. Const: Vital Signs, click to edit/add: Vital Signs - 24 hr 07/14/23 09:27 Temperature 98 F Pulse Rate [Right Pulse Oximeter] 72 Respiratory Rate 18 Blood Pressure [Ri ght Upper Arm] 164/94 H Pulse Oximetry 98 Oxygen Delivery Me thod Room Air Documenting provider has reviewed patient's vital signs: yes Course Course ED Course: Patient presents with some symptoms suggesting possible concussion after head injury several days ago. CT of the head and cervical spine read by Radiology as negative for acute findings. With regard her eye symptoms, concern would be for possible retinal tear. Discussed with her I do not see anything here but she needs to have a dedicated eye exam. Visual acuity here is 20/50 in each eye, 20/30 combined. This is uncorrected, she does weaer glasses. I have asked her to call her eye clinic tomorrow morning to arrange for evaluation tomorrow to rule out retinal injury. Return any time for acute worsening vision or other significant changes. Vital Signs Vital signs: Initial Vital Signs Temperature 98 F 07/14/23 09:27 Temperature Source Temporal Artery Scan 07/14/23 09:27 Pulse Rate 72 07/14/23 09:27 Pulse Rhythm Regular 07/14/23 09:27 Respiratory Rate 18 07/14/23 09:27 Blood Pressure 164/94 H 07/14/23 09:27 Blood Pressure Mean 117 H 07/14/23 09:27 Blood Pressure Position Sitting 07/14/23 09:27 Pulse Oximetry 98 07/14/23 09:27 Oxygen Delivery Method Room Air 07/14/23 09:27 Vital Signs Temperature 98 F 07/14/23 09:27 Pulse Rate 72 07/14/23 09:27 Respiratory Rate 18 07/14/23 09:27 Blood Pressure 164/94 H 07/14/23 09:27 Pulse Oximetry 98 07/14/23 09:27 Oxygen Delivery Method Room Air 07/14/23 09:27 Temperature 98 F 07/14/23 09:27 Pulse Rate 72 07/14/23 09:27 Respiratory Rate 18 07/14/23 09:27 Blood Pressure 164/94 H 07/14/23 09:27 Pulse Oximetry 98 07/14/23 09:27 Oxygen Delivery Method Room Air 07/14/23 09:27 Discharge Plan Discharge Clinical Impression: Right eye symptoms, Head injury, closed, without LOC Patient Disposition: Home, Self-Care Condition: Stable Instructions: Head Injury (ED) Additional Instructions: Evaluation here today is reassuring, however, it is important that you be seen urgently at an eye clinic for complete evaluation of your eye to rule out retinal injury. Please call your clinic tomorrow morning, tell them that you were seen in the ER and that we wanted you to be evaluated ideally tomorrow to rule out an injury to the retina of your right eye. If you have acute changes in your vision or other concerns before then, return at any time to the ER. Prescriptions: No Action doxycycline hyclate 100 mg capsule 100 mg PO BID Qty: 14 0RF prednisone 20 mg tablet 20 mg PO DAILY Qty: 5 0RF albuterol sulfate 90 mcg/actuation HFA aerosol inhaler 2 puff inhalation Q4-6H PRN (Reason: shortness of breath or wheezing) Qty: 6.7 0RF cetirizine 10 mg tablet DAILY fluticasone propionate 50 mcg/actuation spray,suspension INTRANASAL Patient Comments: SPRAY 1 SPRAY INTO BOTH NOSTRILS ONCE DAILY. dxnhhmwo-acq-mmsbhqx sulfate [One Daily Multi-Vit w-Mineral] .Route pantoprazole 40 mg tablet,delayed release (DR/EC) PO Patient Comments: Take 1 Tablet by mouth once daily cetirizine [24Hour Allergy] 10 mg tablet 5 mg PO DAILY PRN pantoprazole 20 mg tablet,delayed release (DR/EC) 20 mg PO DAILY Follow Up/Referrals: Celia Nelson PA-C [Primary Care Provider] - Stand Alone Forms: [facility] Info Instructions
== END 2023-07-14 10:59 | disposition home or self-care (01) ==
PROVIDERS: Emergency Provider Emergency Medicine; PCP Physician Assistant Medical
DX: S09.90XA Unspecified injury of head, initial encounter (principal); H53.8 Other visual disturbances; W19.XXXA Unspecified fall, initial encounter
CPT/HCPCS: 70450; 72125; 99284

== ENCOUNTER 2023-11-29 10:14 | Outpatient (CLI) | payer BC, SELFPAY ==
--- NOTE | 2023-11-29 10:15 | CRLHL7_ITS ---
For Patients: As a result of the Cures Act, medical imaging exams and procedure reports are released immediately into your electronic medical record. You may view this report before your referring provider. If you have questions, please contact your health care provider. INDICATION: GERD. Dyspepsia. Gas pain. Gastroesophageal reflux. COMPARISON: Abdominal ultrasound dated 09 August 2011. TECHNIQUE: MRCP with heavily T2 weighted 2D and 3D MRCP images. T1 in- and out of phase and T2 weighted images also performed. No gadolinium administered. Findings : No fatty infiltration of the liver. No focal abnormalities identified in the visualized portions of the liver, spleen, pancreas, and adrenal glands. 7 mm cyst in the superior pole of the right kidney. The kidneys are otherwise unremarkable. No hydronephrosis. No adenopathy. Cholecystectomy. Mild dilation of the common bile duct measuring up to 1.1 cm. No significant intrahepatic bile duct dilation. No filling defects in the biliary system. Normal size of the main pancreatic duct. Impression : 1. Mild dilation of the common bile duct could be secondary to a previously passed stone. No current choledocholithiasis. Normal size of the main pancreatic duct. Dictated by Chandra Zuluaga MD @ 12/02/2023 2:52:36 PM (Electronically Signed)
--- OUTSIDE RECORDS SUMMARY | 2023-11-29 10:17 | XMS_ITS | Continuity of Care Document ---
Author Organization [facility] Address [address] [address] [place] [address] Phone Care Team Providers Care Audio Narrator Name Role Phone No Information Unavailable Unavailable Allergies, Adverse Reactions, Alerts Substance Reaction Status Criticality azithromycin Nausea/vomiting Active No Informati on Medications Medication Instructions Dosage Effective Dates (start - stop) Status Comments Zyrtec 10 mg tablet take 1 tablet by ora l route every day 10 MG - Active multivitamin tablet take 1 tablet by ora l route every day with food - Active Procedures Procedure Date Offic/outpt E&m [facility] Advance Directives Directive Yes / No Effective Date File Name No Information Encounters Encounter Description Practice Location Reason(s) For Visit Diagnoses Date Provider Providers Copied on Encounter [facility], [address] [address], [place], [place], [id number], [place] tel:[phone] No Information No Information Offic/outpt E&m [facility], [address] [address], [place], [place], [id number], [place] tel:[phone] [facility] GI Symptoms or Concerns (chief complaint) Chronic GERDAbnormal finding on imagingColon cancer screening 4 Sergio Brunson. [address] [facility], [place], [place], [id number], [place]. tel:[phone] Referring Provider: Jackie Valentino PAC, [address] [place] [address], [place], [address] . tel:[phone] [facility], [address] [address], [place], [place], [id number], [place] tel:[phone] [facility] No Information Yomi Haas. [address] [facility], [place], [place], [id number], [place]. tel:[phone] Family History Family Member Type Diagnosis Age At Onset Mother Problem Cardiovascular disease Father Problem Cardiovascular disease Brother Problem Cardiovascular disease Sister Problem Cardiovascular disease Immunizations Vaccine Date Status Comments SARS-COV-2 (COVID-19) vaccin e, mRNA, spike protein, LNP, preservative free, sheila-sucrose, 30 mcg/0.3 mL dose administered Note: [facility] bi-direct ional interface ; Source: Other Registry Afluria Qd administered Note: [facility] bi-directional interface ; Source: Other Registry SARS-COV-2 (COVID-19) vaccin e, mRNA, spike protein, LNP, bivalent, preservative free, 30 mcg/0.3 mL dose, sheila-sucrose formulation administered Note: [facility] bi-direct ional interface ; Source: Other Registry Seasonal, quadrivalent, recombinant, injectable influenza vaccine, preservative free administered Note: [facility] bi-direct ional interface ; Source: Other Registry Afluria Qd administered Note: [facility] bi-directional interface ; Source: Other Registry SARS-COV-2 (COVID-19) vaccin e, mRNA, spike protein, LNP, preservative free, 30 mcg/0.3mL dose administered Note: [facility] bi-direct ional interface ; Source: Other Registry SARS-COV-2 (COVID-19) vaccin e, mRNA, spike protein, LNP, preservative free, 30 mcg/0.3mL dose administered Note: [facility] bi-direct ional interface ; Source: Other Registry SARS-COV-2 (COVID-19) vaccin e, mRNA, spike protein, LNP, preservative free, 30 mcg/0.3mL dose administered Note: [facility] bi-direct ional interface ; Source: Other Registry Influenza administered Note: [facility] bi-d irectional interface ; Source: Other Registry zoster vaccine recombinant administered N ote: [facility] bi-directional interface ; Source: Other Registry zoster vaccine recombinant administered N ote: [facility] bi-directional interface ; Source: Other Registry Afluria Qd administered Note: [facility] bi-directional interface ; Source: Other Registry Afluria Qd administered Note: [facility] bi-directional interface ; Source: Other Registry Influenza administered Note: [facility] bi-d irectional interface ; Source: Other Registry Afluria Qd administered Note: [facility] bi-directional interface ; Source: Other Registry Afluria Qd administered Note: [facility] bi-directional interface ; Source: Other Registry Afluria Qd administered Note: [facility] bi-directional interface ; Source: Other Registry zoster vaccine, live administered Note: [facility] bi-directional interface ; Source: Other Registry tetanus toxoid, reduced diphtheria toxoid, and acellular pertussis vaccine, adsorbed administered Note: [facility] b i-directional interface ; Source: Other Registry Influenza, seasonal, injecta ble, preservative free administered Note: [facility] bi-direct ional interface ; Source: Other Registry Novel [id number], all formulations administered Note: [facility] bi-direct ional interface ; Source: Other Registry Influenza, seasonal, injectable administe red Note: [facility] bi- directional interface ; Source: Other Registry Payers Payer name Insurance type Covered democrat ID Authoriza tion(s) No Information Social History Type Description Quantity Date Captured Comments Sex Female Smoking Status No Information Chief Complaint And Reason For Visit No Information Reason For Referral Reason For Referral No Information Plan Of Treatment Date Type Action Status Referral Ordered: MRCP Biliary/Pancreatic Ducts WITHOUT Contrast Appointment date/timeframe: 12/03/2023 ordered Referral Ordered: Colonoscopy Appointment date/timeframe: 12/26/2023 ordered Referral Ordered: EGD Appointment date/timeframe: 12/26/2023 ordered Appointment Joo Souza BOOKED History Of Present Illness Encounter Date Complaint History Of Prese nt Illness GI Symptoms or Concerns The carmen ent was seen today in clinic in- person and was by herself. She is sent to us for evaluation of bile ducts, which showed some filling defects on a CT scan that was done for abdominal pain.The patient ran into a box and hurt her abdomen and had abdominal pain a few weeks ago. She had a CT scan of the abdomen and pelvis from that, which noted the above abnormality. The pain is now getting better. She describes some bloating sensation in the upper abdomen from time to time that has been ongoing for a long time now. She also describes episodic lower abdominal sharp pains on both sides. At one point, this pain was quite severe that she almost went to the emergency room. She ended up not going into the emergency room, but when she reached the hospital, she got out of the car and walked around and the pain had subsided, therefore she went back home.The patient has a history of heartburn and acid reflux, for which she takes medications for a couple of years now. She do Functional Status Date Functional Assessmen t No Information Instructions Date Instruction Additional Infor queeniekimberley EGD and colonoscopy. MRCP.Information on GERD provided to the patient.Continue your current medications.Follow up after the above for further management. Related to Chronic GERD Gastroesophageal Reflux Disease Related to Chronic GERD Gas Pain and Bloating Related to Colon cancer screening Dyspepsia Related to Colon cancer screening Assessments Type Assessment Date No Information Patient Care Teams Name Effective Dates (start - stop) Status Members No Information
--- OUTSIDE RECORDS SUMMARY | 2023-11-29 10:17 | XMS_ITS | Clinical Summary ---
Author Organization [facility] Address [place], [place] [address] Care Team Providers Care Maxillofacial Prosthetics Dentist Name Role Phone Celia Nelson Primary Care Provider Allergies Active Allergy Reactions Criticality Noted Date Comments Azithromycin Stomach Upset 08/24/2018 Stomach ache Medications Medication Sig Dispensed Refills Start Date End Date Status [id number] rbal no.245 200 mcg- 37.5 mg chew Take 2 gum by mouth. 0 08/26/2017 Active cetirizine (ZYRTEC) 10 mg tablet Take 1 tablet by mouth once daily. 0 04/22/2020 Active fluticasone (50 mcg per actuation) nasal solution (FLONASE)Indicatio ns:Recurrent sinusitis Inhale 2 Sprays into both nostrils once daily. INHALE 1 SPRAY INTO BOTH NOSTRILS ONCE DAILY. 3 g 4 04/22/2020 Active doxycycline 100 mg capsuleIndications :Acute recurrent maxillary sinusitis Take 1 Capsule (100 mg) by mouth two times daily for 10 days. 20 Capsule 10/29/2023 11/08/2023 predniSONE (DELTASONE) 20 mg tabletIndications: Acute recurrent maxillary sinusitis Take 2 Tablets (40 mg) by mouth once daily with a meal for 5 days. 10 Tablet 10/29/2023 11/03/2023 Active Problems Problem Noted Date Diagnosed Date H/O total hysterectomy 09/20/2021 Routine adult health maintenance 07/23/2013 Overview: Colonoscopy 06/2013 incomplete colonoscopy, recommend BE Recurrent sinusitis 02/13/2010 Encounters Date Type Department Care Team Description 11/06/2023 2:30 PM CDT Office Visit [facility] [address] [place] [address] Jackie Valentino PA Abdominal Pain 11/06/2023 2:00 PM CDT Ancillary Procedure [facility] [address] [place] [address] 11/06/2023 Travel 10/29/2023 3:00 PM CDT Office Visit [facility] [address] [facility] [address] Jackie Valentino PA Sinus Problem 10/29/2023 Telephone [facility] [address] [facility] [address] Jey Veloz MD Pre Procedure (Colonoscopy) 10/29/2023 Travel from Last 3 Months Immunizations Name Administration Dates Next Due COVID-19 vaccine ([employer] 30mcg/0.3mL) 12YO+ BIVALENT PF, MDV 04/17/2022 [...] 3 3 Date Outcome GA Total Labor Labor/2nd/3rd Weight Sex Type Anes PTL Aileen A1 A5 Name Clin Term Term Term Last Filed Vital Signs Vital Sign Reading Time Taken Comments Blood Pressure 131/86 11/06/2023 12:54 PM CDT Pulse 55 11/06/2023 12:54 PM CDT Temperature 36.7 ??C (98.1 ??F) 10/29/2023 2:50 PM CD T Respiratory Rate 16 02/12/2023 3:42 PM CDT Oxygen Saturation 98% 11/06/2023 12:54 PM CDT Inhaled Oxygen Concentration - - Weight 57.4 kg (126 lb 9.6 oz) 11/06/2023 12:54 PM CDT Height 148.6 cm (4' 10.5) 04/16/2023 7:33 AM CS T Body Mass Index 26.01 04/16/2023 7:33 AM AS400 CONSULTANT Plan of Treatment Health Maintenance Due Date Last Done Comments HIV for age 15-65 1973 Tetanus booster 03/23/2021 03/23/2011, 11/24/2003 Depression screening for age 12+ 02/07/2023 02/07/2022, 02/06/2022, 04/15/2020, Additional history exists Colonoscopy through age 75 07/23/2023 07/23/2013 COVID-19 vaccine series ( - 2022- season) 2023 05/11/2023, 04/17/2022, 04/18/2021, Additional history exists DEXA/DXA scan for age 65+ 11/01/2023 04/16/2023, Pneumococcal series for age 65+ (1 of 1 - PCV) 11/01/2023 Influenza for age 65+ 01/26/2024 03/30/2023 , 03/12/2022, 04/29/2021, Additional history exists BMI (ht and wt on same day) for age 18+ 04/16/2024 04/16/2023, 02/12/2023, 01/17/2023, Additional history exists Mammogram for age 45-75 04/16/2024 04/16/20, 04/17/2022, 04/18/2021, Additional history exists Lipids for age 45-75 04/16/2028 04/16/2023, 04/17/2022, 04/18/2021, Additional history exists Tdap Completed 03/23/2011 Hepatitis C screening for ag e 18-79 Completed 04/25/2015 Zoster (shingles) series for age 50+ Completed 10/02/2019, 04/21/2019, 04/10/2013 Procedures Procedure Name Priority Date/Time Associated Diagnosis Comments AMB CONSULT TO GASTROENTEROLOGY SUAD 11/21/2023 7:43 PM CDT Abdominal pain, generalized Bile duct abnormality CT ABDOMEN PELVIS W STAT 11/06/2023 1 :56 PM CDT Abdominal pain, generalized Abdominal trauma, initial encounter CREATININE,ISTAT Routine 11/06/2023 1:19 PM CDT Abdominal pain, generalized CBC WITH AUTO DIFFERENTIAL Routine 11/06/2023 1:11 PM CDT Abdominal pain, generalized LIPASE STAT 11/06/2023 1:11 PM CDT Abdominal pain, generalized COMP METABOLIC PANEL STAT 11/06/2023 1:11 PM CDT Abdominal pain, generalized CBC WITH AUTO DIFFERENTIAL Routine 11/06/2023 1:11 PM CDT Abdominal pain, generalized XR DXA BONE DENSITY 2 SITES AXIAL Routine 04/16/2023 9:12 AM AS400 CONSULTANT Post menopausal syndrome LIPID PANEL W REFLEX MEASURED LDL Routine 04/16/2023 9:04 AM AS400 CONSULTANT Screening cholesterol level XR MAMMO WYATT BILAT SCREEN Routine 04/16/2023 8:33 AM AS400 CONSULTANT Visit for screening mammogram ANTI HCV Routine 04/25/2015 9:29 AM AS400 CONSULTANT Need for hepatitis C screening test from Last 3 Months or Most Recently Relevant to Health Maintenance Results * CT ABDOMEN PELVIS W (11/06/2023 1:56 PM CDT) Anatomical Region Laterality Modality Abdomen, Pelvis, AORTA, LIVER, SPLEEN Computed Tomography 11/06/2023 2:20 PM CDT Impressions 11/06/2023 2:20 PM CDT Heterogeneous soft tissue in the distal common bile duct upstream of the ampulla, measuring approximately 1.3 x 0.5 cm. No significant biliary duct dilation. Recommend correlation with serum alkaline phosphatase, and consider further evaluation with MRCP or ERCP. Please note that all CT scans at this facility use dose modulation, iterative reconstruction, and/or weight-based dosing when appropriate to reduce radiation dose to as low as reasonably achievable. Dictated by Adams Pitt MD @ 11/06/2023 2:20:19 PM (Electronically Signed) Narrative 11/06/2023 2:20 PM CDT For Patients: ??As a result of the Century Cures Act, medical imaging exams and procedure reports are released immediately into your electronic medical record. ??You may view this report before your referring provider. ??If you have questions, please contact your health care provider. INDICATION: Abdominal pain. TECHNIQUE: CT abdomen and pelvis acquired with 100 mL Omnipaque 350 contrast. COMPARISON: CT abdomen/pelvis dated 08/16/2011. FINDINGS: Lower chest: No focal consolidation. Liver: No suspicious focal hepatic lesion. Gallbladder and bile ducts: Post cholecystectomy. Heterogeneous soft tissue in the distal common bile duct upstream of the ampulla (series 4, image 67), measuring approximately 1.3 x 0.5 cm. Pancreas: Unremarkable. Spleen: Unremarkable. Adrenal glands: Unremarkable. Kidneys: Kidneys enhance symmetrically, without hydronephrosis. Too small to characterize hypodense right renal lesion in the upper pole. Retroperitoneum: No lymphadenopathy. Bowel and mesentery: Bowel is not obstructed. No significant ascites, no definite pneumoperitoneum. Normal caliber appendix. Bladder: Unremarkable for degree of distention. Reproductive organs: Post hysterectomy. Pelvic lymph nodes: No lymphadenopathy. Vessels: Few scattered atherosclerotic calcifications. Abdominal wall: No acute abdominal wall abnormality. Bones: Multilevel degenerative changes of the spine. Bones are osteopenic. Bilateral L5 pars defects. Procedure Note Adams Pitt MD - 11/06/2023 For Patients: As a result of the Century Cures Act, medical imagingexams and procedure reports are released immediately into your electronicmedical record. You may view this report before your referring provider.If you have questions, please contact your health care provider. INDICATION: Abdominal pain. TECHNIQUE: CT abdomen and pelvis acquired with 100 mL Omnipaque 350 contrast. COMPARISON: CT abdomen/pelvis dated 08/16/2011. FINDINGS: Lower chest: No focal consolidation. Liver: No suspicious focal hepatic lesion. Gallbladder and bile ducts: Post cholecystectomy. Heterogeneous softtissue in the distal common bile duct upstream of the ampulla (series 4,image 67), measuring approximately 1.3 x 0.5 cm. Pancreas: Unremarkable. Spleen: Unremarkable. Adrenal glands: Unremarkable. Kidneys: Kidneys enhance symmetrically, without hydronephrosis. Too smallto characterize hypodense right renal lesion in the upper pole. Retroperitoneum: No lymphadenopathy. Bowel and mesentery: Bowel is not obstructed. No significant ascites, nodefinite pneumoperitoneum. Normal caliber appendix. Bladder: Unremarkable for degree of distention. Reproductive organs: Post hysterectomy. Pelvic lymph nodes: No lymphadenopathy. Vessels: Few scattered atherosclerotic calcifications. Abdominal wall: No acute abdominal wall abnormality. Bones: Multilevel degenerative changes of the spine. Bones are osteopenic.Bilateral L5 pars defects. IMPRESSION: Heterogeneous soft tissue in the distal common bile duct upstream of theampulla, measuring approximately 1.3 x 0.5 cm. No significant biliary ductdilation. Recommend correlation with serum alkaline phosphatase, andconsider further evaluation with MRCP or ERCP. Please note that all CT scans at this facility use dose modulation,iterative reconstruction, and/or weight-based dosing when appropriate toreduce radiation dose to as low as reasonably achievable. Dictated by Adams Pitt MD @ 11/06/2023 2:20:19 PM (Electronically Signed) Jackie CORNELIUS CT * (ABNORMAL) CREATININE,ISTAT (11/06/2023 1:19 PM CDT) CREATININE, POCT 0.80 0.57 - 1.11 mg/dL 11/06/2023 1:21 PM CDT [facility] Comment:Caution: Patients ta flaquita Hydroxyurea have falsely increased iStat Creatinine results. Verify creatinine results ordering a Creatinine (91064.2) eGFR 82(L) >90 mL/min/1.7 3m2 11/06/2023 1:21 PM CDT [facility] Comment:As of 2021, eG FR is calculated by the CKD-EPI creatinine equation without race adjustment. eGFR can be influenced by muscle mass, exercise, and diet. The reported eGFR is an estimation only and is only applicable if the renal function is stable. Blood BLOOD SPECIMEN / Unknown 11/06/2023 1:19 PM CDT 11/06/2023 1:21 PM CDT Jackie CORNELIUS CHEMISTRY [facility] [address] [place] [address], * (ABNORMAL) CBC WITH AUTO DIFFERENTIAL (11/06/2023 1:11 PM CDT) WHITE BLOOD COUNT 7.9 4.5 - 11.0 thou/cu mm 11/06/2023 1:18 PM CDT [facility] RED BLOOD COUNT 4.68 4.00 - 5.20 mil/cu mm 11/06/2023 1:18 PM CDT [facility] HEMOGLOBIN 14.0 12.0 - 16.0 g/dL 11/06/2023 1:18 PM CDT [facility] HEMATOCRIT 41.8 33.0 - 51.0 % 11/06/2023 1:18 PM CDT [facility] MCV 89 80 - 100 fL 11/06/2023 1:18 PM CDT [facility] MCH 29.9 26.0 - 34.0 pg 11/06/2023 1:18 PM CDT [facility] MCHC 33.5 32.0 - 36.0 g/dL 11/06/2023 1:18 PM CDT [facility] RDW 12.9 11.5 - 15.5 % 11/06/2023 1:18 PM CDT [facility] PLATELET COUNT 316 140 - 440 thou/cu mm 11/06/2023 1:18 PM CDT [facility] MPV 8.8 6.5 - 11.0 fL 11/06/2023 1:18 PM CDT [facility] % NEUT 43.0 % 11/06/2023 1:18 PM CDT [facility] % LYMPH 45.4 % 11/06/2023 1:18 PM CDT [facility] % MONO 10.2 % 11/06/2023 1:18 PM CDT [facility] % EOS 1.3 % 11/06/2023 1:18 PM CDT [facility] % BASO 0.1 % 11/06/2023 1:18 PM CDT [facility] ABSOLUTE NEUTROPHILS 3.4 1.7 - 7.0 thou/cu mm 11/06/2023 1:18 PM CDT [facility] ABSOLUTE LYMPHOCYTES 3.6(H) 0.9 - 2.9 thou/cu mm 11/06/2023 1:18 PM CDT [facility] ABSOLUTE MONOCYTES 0.8 <0.9 thou/cu mm 11/06/2023 1:18 PM CDT [facility] ABSOLUTE EOSINOPHILS 0.1 <0.5 thou/cu mm 11/06/2023 1:18 PM CDT [facility] ABSOLUTE BASOPHILS 0.0 <0.3 thou/cu mm 11/06/2023 1:18 PM CDT [facility] Blood BLOOD SPECIMEN / Unknown Venipuncture / Unknown 11/06/2023 1:11 PM CDT 11/06/2023 1:15 PM CDT Jackie CORNELIUS HEMATOLOGY [facility] [address] [place] [address], * LIPASE (11/06/2023 1:11 PM CDT) Pathologist [facility] LIPASE 32.8 13.0 - 60.0 IU/L 11/06/2023 6:05 PM CDT [facility] Blood BLOOD SPECIMEN / Unknown Venipuncture / Unknown 11/06/2023 1:11 PM CDT 11/06/2023 1:15 PM CDT Jackie CORNELIUS CHEMISTRY [facility] [address] [place] [address] * (ABNORMAL) COMP METABOLIC PANEL (11/06/2023 1:11 PM CDT) SODIUM 140 136 - 145 mmol/L 11/06/2023 6:05 PM CDT [facility] POTASSIUM 4.3 3.5 - 5.1 mmol/L 11/06/2023 6:05 PM CDT [facility] CHLORIDE 99 98 - 107 mmol/L 11/06/2023 6:05 PM [facility] CO2,TOTAL 33(H) 22 - 29 mmol/L 11/06/2023 6:05 PM [facility] ANION GAP 8 5 - 18 11/06/2023 6:05 PM [facility] GLUCOSE 93 70 - 99 mg/dL 11/06/2023 6:05 PM [facility] CALCIUM 9.5 8.8 - 10.2 mg/dL 11/06/2023 6:05 PM [facility] BUN 19 8 - 23 mg/dL 11/06/2023 6:05 PM [facility] CREATININE 0.77 0.50 - 0.90 mg/dL 11/06/2023 6:05 PM [facility] BUN/CREAT RATIO 25(H) 10 - 20 6:05 PM [facility] eGFR 86(L) >90 mL/min/1.7 3m2 11/06/2023 6:05 PM [facility] Comment:As of 2021, eG FR is calculated by the CKD-EPI creatinine equation without race adjustment. ??eGFR can be influenced by muscle mass, exercise, and diet. ??The reported eGFR is an estimation only and is only applicable if the renal function is stable. ALBUMIN 4.5 4.0 - 4.9 g/dL 11/06/2023 6:05 PM [facility] PROTEIN,TOTAL 6.7 6.0 - 8.0 g/dL 11/06/2023 6:05 PM [facility] BILIRUBIN,TOTAL 0.3 0.0 - 1.2 mg/dL 11/06/2023 6:05 PM [facility] ALK PHOSPHATASE 69 35 - 104 IU/L 11/06/2023 6:05 PM [facility] ALT (SGPT) 22 10 - 35 IU/L 11/06/2023 6:05 PM [facility] AST (SGOT) 25 10 - 35 IU/L 11/06/2023 6:05 PM CDT [facility] Blood BLOOD SPECIMEN / Unknown Venipuncture / Unknown 11/06/2023 1:11 PM CDT 11/06/2023 1:15 PM CDT Jackie CORNELIUS CHEMISTRY [facility] [address] [place] [address] * (ABNORMAL) XR DXA BONE DENSITY 2 SITES AXIAL (04/16/2023 9:12 AM AS400 CONSULTANT) Anatomical Region Laterality Modality Spine, HIPS, HIPL, HIPR Other Impressions 04/24/2023 9:06 AM AS400 CONSULTANT Osteopenia. RECOMMENDATIONS: The National Osteoporosis Foundation recommends [...] recommended in 2-3 years. Celia Nelson PA-C [facility] 04/24/2023 ?? Narrative 04/24/2023 9:06 AM AS400 CONSULTANT For Patients: Results are automatically released to your [employer] account once available, in compliance with federal regulations. This means that you may see your results before your provider has had a chance to review them. Please allow 2-3 business days for your provider to comment on the results. XR DXA Bone Mineral Density (BMD) EXAM LOCATION: [address] [address] PATIENT NAME: Joo Souza DATE OF : [...] two scanners are made by the same order packer or packager. PROCEDURE: Dual-energy x-ray absorptiometry performed with routine [...] Z-Score: - 0.5 Change from prior in 2013: ??Decrease 5.6%. Right femoral neck BMD: 0.725 g/cm2 T-Score: - 2.3 Z-Score: - 0.6 Change from prior in 2013: ??Decrease 8.6%. Left hip BMD: 0.785 g/cm2 [...] W REFLEX MEASURED LDL (04/16/2023 9:04 AM AS400 CONSULTANT) [facility] CHOLESTEROL,TOTAL 209(H) 100 - 199 mg/dL 04/16/2023 6:29 PM AS400 CONSULTANT [facility] Comment: Cholesterol, Total Reference Ranges Desirable <200 mg/dL Borderline 200-239 mg/dL High >=240 mg/dL TRIGLYCERIDES 65 <150 mg/dL 04/16/2023 6:29 PM AS400 CONSULTANT [facility] HDL CHOLESTEROL 79 >40 mg/dL 6:29 PM AS400 CONSULTANT [facility] NON-HDL CHOLESTEROL 130 <145 mg/dl 04/16/2023 6:29 PM AS400 CONSULTANT [facility] CHOL/HDL RATIO 2.65 <4.50 04/16/2023 6:29 PM AS400 CONSULTANT [facility] LDL CHOLESTEROL 117 <=130 mg/dL 04/16/2023 6:29 PM AS400 CONSULTANT [facility] VLDL CHOLESTEROL 13 <=30 mg/dL 04/16/2023 6:29 PM AS400 CONSULTANT [facility] PROVIDER ORDERED STATUS RANDOM 04/16/2023 6:29 PM AS400 CONSULTANT [facility] Blood BLOOD SPECIMEN / Unknown Venipuncture / Unknown 04/16/2023 9:04 AM AS400 CONSULTANT 04/16/2023 9:05 AM AS400 CONSULTANT Celia CORNELIUS CHEMISTRY [facility] [address] [place] [address], [place] * XR MAMMO WYATT BILAT SCREEN (04/16/2023 8:33 AM AS400 CONSULTANT) Anatomical Region Laterality Modality BREASTS, Breast Left, Breast Right Bilateral Mammography Impressions 04/17/2023 4:21 PM AS400 CONSULTANT ??There is no radiographic evidence for malignancy. ??Recommend annual mammograms. MAMMOGRAM ASSESSMENT: ??ACR 1 Negative PATIENTS: You will also receive a letter with your examination results in an easy to read format. ??If you have questions about your results, please contact your referring provider. Narrative 04/17/2023 4:21 PM AS400 CONSULTANT For Patients: As a result of the Century Cures Act, medical imaging exams and procedure reports are released immediately into your electronic medical record. You may view this report before your referring provider. If you have questions, please contact your health care provider. XR MAMMO WYATT BILAT SCREEN [[id number]] CLINICAL HISTORY: ??This is an asymptomatic 62 y.o. patient. INDICATION FOR EXAM: Mammogram Screening. TECHNIQUE: CC & MLO views were obtained. ??This study was evaluated with the assistance of Computer-Aided Detection. Breast Tomosynthesis was used in interpretation. COMPARISON FILM: Yes 04/17/22 [facility] 04/18/21 [facility] FINDINGS: ??The breasts are heterogeneously dense, which may obscure small masses. There are no dominant masses, suspicious micro calcifications or areas of architectural distortion. Celia CORNELIUS MAMMO * ANTI HCV [[id number]] (04/25/2015 9:29 AM AS400 CONSULTANT) HEPATITIS C ANTIBODY Non-Reacti ve Non-Reacti ve 04/25/2015 6:14 PM AS400 CONSULTANT [facility] Blood specimen (specimen) BLOOD SPECIMEN / Unknown Venipuncture / Unknown 04/25/2015 9:29 AM AS400 CONSULTANT 04/25/2015 9:29 AM AS400 CONSULTANT Narrative [facility] - 04/25/2015 6:14 PM AS400 CONSULTANT Antibodies to HCV not detected; does not exclude the possibility of exposure to HCV. Celia CORNELIUS [facility] [address] [place] [address], from Last 3 Months or Most Recently Relevant to Health Maintenance Care Teams Maxillofacial Prosthetics Dentist Relationship Specialty Start Date End Date Celia Nelson [place] [address] PCP - General Family Practice 11/01/14
== END 2023-11-29 10:15 | disposition home or self-care (01) ==
PROVIDERS: PCP Physician Assistant Medical
DX: R93.89 Abnormal findings on diagnostic imaging of other specified body structures (principal); K21.9 Gastro-esophageal reflux disease without esophagitis
CPT/HCPCS: 74181

== ENCOUNTER 2024-11-06 14:00 | Outpatient (RCR) | payer BC, SELFPAY ==
--- NOTE | 2024-09-22 16:36 | PT.OPEX ---
PT [place] Outpatient Eval PT [facility] Outpatient Eval Start: 09/22/24 16:07 Freq: Status: Active Protocol: Document 09/22/24 16:07 CARSON (Rec: 09/22/24 16:27 CARSON [id number]) E-signed By Argelia Whitley DPT Physical Therapy Outpatient Evaluation Insurance Information Recert Due Date 12/21/24 Insurance Name [employer] Medical Diagnosis L hip bursitis Treating Diagnosis L hip pain, L LB/SI/buttock pain, L LE radicular pain, core/hip/glut weakness, pelvic /SI instability, bilateral ITB tightness L>R, limited tolerance for bending/lifting/ stair negotiation Subjective Subjective Patient reports onset of L hip and L buttock pain starting about 2 months ago. She reports ongoing pain with progression of pain/sx to include shooting pain down L LE to lower leg. She reports increased pain with bending, lifting activities. She saw primary MD and was referred to ortho MD for her L hip pain. She reports having xrays that showed some OA. States she has L lateral hip pain, increased with palpation of lateral hip and she isn't able to lie on her L side. Sleep is interrupted. She does some physical work, on her feet all day. Denies any missed work. Primary MD issued 25# lifting restriction for work and patient feels that has been helpful. She was seeing a chiropractor in [place], maybe 3-4 visits. She didn't think it was helping and overall felt her pain/sx were getting a little worse. Denies any prior LB, hip issues. No prior LB, hip, knee surgeries. She has increased pain with rolling over, lying on her L side, getting into/out of the car, and with stairs. States she has to negotiate stairs with step to pattern at times. She is using advil regularly. Doing some icing, usually feels good. Tried biofreeze but with short term relief. Pain range 3-6/10. Date of Last Physician Visit 09/07/24 Current Work Status Corner Former Assessment Assessment/Impression Patient is a 63 year old female with L hip pain, L LB/ SI/buttock pain, L LE radicular pain, core/hip/glut weakness, pelvic/SI instability, bilateral ITB tightness L>R, limited tolerance for bending/lifting/ stair negotiation. Pain range 3-6/10. Patient reports LB/ buttock pain with shooting pains down into L lower leg. She is tight, tender with palpation L LB/buttock region, L lateral hip, bilateral ITBs L>R. She reports some recent chiro treatments with adjustments. Core/hip/glut weakness noted with exercises and with hx of pelvic/SI instability. Able to loosen up LB/SI/pelvis/hips with MT treatment this session. Focus on TE to improve ROM, mobility, and strength. HO issued for HEP. Patient would benefit from skilled PT for pain/sx management, return to pain free L hip ROM WFL, improved core/hip/glut strength, improved LB/pelvic/ SI stability, posture/body mechanics training, and establishment of HEP. Plan of Care Rehabilitation Potential Good Physical Therapy Goals 1. Decrease L hip/LB/buttock/ ITB pain to less than/equal to 3/10 with daily/work activities and with the progression of PT activities over the next 4-6 weeks. 2. Patient will be educated on posture/body mechanics and pain management strategies over the next 4-6 weeks for decreased stress to LB/pelvis/hip and improved pelvic/SI/LB stability. 3. Improve core/hip/glut strength and posture over the next 8-10 weeks for improved posture/body mechanics, decreased stress to LB/pelvis/hip, improved pelvic/SI/LB stability, and improved tolerance for bending/lifting/ stairs without flare up of pain. 4. Patient will be I with HEP within 8-10 weeks for progression toward above goals, ongoing self management of pain/sx, ongoing self improvements in core/hip/glut strength, posture/body mechanics, pelvic /SI/LB stability, and for return to PLF with daily/ work activities without flare up of pain. Coordination/Communication With Referral Source Treatment Plan/Direct Interventions Manual Therapy,Therapeutic Exercises Frequency/Duration 1x/week Patient Will Be Discharged From Therapy Completion of LTG(s),Skills Plateau,Independent w/HEP, Independently Progressing Evaluation Billing Untimed Code Treatment Minutes 25 Complexity Moderate Certification Information Initial Certification Date 09/22/24 Ending Certification Date 12/21/24 Provider Signature Required Yes Provider Signature Shows Agreement With POC & Medical Necessity Physician NPI Number Write NPI# Here Physician Comment/Change : Physician Signature & Date Requested Please Sign/Date Here
== END 2025-03-06 23:59 | disposition home or self-care (01) ==
PROVIDERS: PCP Physician Assistant Medical; Visit Provider Orthopaedic Surgery
DX: M70.72 Other bursitis of hip, left hip (principal); Z51.89 Encounter for other specified aftercare
CPT/HCPCS: 97110; 97140; 97162

== ENCOUNTER 2025-01-05 06:21 | Outpatient (CLI) | payer BC, SELFPAY ==
[2025-01-05 07:04] VITALS: BP 148/74; PULSE 60; RESP 16; O2SAT 99
--- NOTE | 2025-01-05 07:44 | PM.ORPRC ---
Procedure Note Date of procedure: 01/05/25 Procedure: PREOPERATIVE DIAGNOSIS: Left hip abductor tendinopathy/greater trochanteric bursitis POSTOPERATIVE DIAGNOSIS: Left hip abductor tendinopathy/greater trochanteric bursitis NAME OF OPERATION: Percutaneous tenotomy SURGEON: Francisco Chavez MD CIVIL DESIGN SPECIALIST: Em Garcia PA-C ANESTHESIA: Local ESTIMATED BLOOD LOSS: 2 mL. COMPLICATIONS: None. SPECIMENS: None. DRAINS: None. PREOPERATIVE ANTIBIOTICS: None INDICATIONS: The patient is a 64-year-old with a history of left hip pain secondary to the above diagnoses. Despite appropriate non operative management, they continue to have symptoms. Operative intervention was recommended. The risks, benefits and expected outcomes were discussed in detail. These included but were not limited to: Infection, bleeding, injury to blood vessel or nerve, venous thromboembolism. All questions were answered to their satisfaction. PROCEDURE: The patient was placed in the lateral decubitus position. The left hip was imaged in the long and short axes with the ultrasound transducer. Normal acoustic landmarks were identified. We then sterilely prepped and draped the skin, and used a sterile probe cover with sterile gel. Local anesthesia was established with 10 mL of a solution containing 2 % lidocaine without epinephrine, 0.5% Marcaine without epinephrine and sodium bicarbonate. An 11 blade was used to incise the skin. The Tenex TX 2 micro tip was used to treat the abductor tendon for a total of 3 minutes and 59 seconds. The incision was Steri-Stripped closed. A dry dressing was applied. Sponge and needle counts were correct x2. The patient tolerated the procedure well. There were no apparent complications. They were discharged to home in satisfactory condition. PLAN: The patient may weightbear as tolerates. Ice, Tylenol and ibuprofen can be used for discomfort. They may ramp up activity as the hip will allow. They will follow up in the office in 6 weeks to assess their progress.
[2025-01-05 07:50] VITALS: BP 160/81; PULSE 58; RESP 16; O2SAT 98
== END 2025-01-05 08:00 | disposition home or self-care (01) ==
PROVIDERS: PCP Physician Assistant Medical; Visit Provider Orthopaedic Surgery
DX: M70.62 Trochanteric bursitis, left hip (principal)
CPT/HCPCS: 27006; 76942; J0665

== ENCOUNTER 2025-04-11 12:49 | Emergency (ER) | payer BC, SELFPAY ==
--- OUTSIDE RECORDS SUMMARY | 2024-01-06 03:21 | XMS_ITS | Continuity of Care Document ---
Author Organization [facility] Address [address] [address] [place] [address] Phone Care Team Providers Care Generation Technologist Name Role Phone Waldo Vanessa MD Unavailable Unavailabl e Allergies, Adverse Reactions, Alerts Substance Reaction Status Criticality No Known Allergies Active No Inform ation azithromycin Nausea/vomiting Active No Informati on Medications Medication Instructions Dosage Effective Dates (start - stop) Status Comments pantoprazole 40 mg tablet,delayed release take 1 tablet by oral route 2 times every day 40 MG - Active Zyrtec 10 mg tablet take 1 tablet by ora l route every day 10 MG - Active Procedures Procedure Date Colonoscopy Flex; Dx (sep Pro) 24 Ugi Endo; W/bx 1/mx Level Iv-surg Path Gross/micro 24 Offic/outpt E&m New [facility]-hi Advance Directives Directive Yes / No Effective Date File Name No Information Encounters Encounter Description Practice Location Reason(s) For Visit Diagnoses Date Provider Providers Copied on Encounter [facility], [address] [address], [place], [id number], [place] tel:[phone] [facility] No Information 4 Yomi Haas. [address] [facility], [address], [place], [address] , [place]. tel:[phone] [facility], [address] [address], [place], [address], [place] tel:[phone] [facility] GI Symptoms or Concerns (chief complaint) Hiatal herniaHiatal herniaEncounter for screening for malignant neoplasm of colonBarrett's esophagus without dysplasiaHeartburn 4 Kavin Sales. [address] [facility], [address], [facility] [place], [address] , [place]. tel: [phone] Referring Provider: Referral Self, USE FOR SELF REFERRALS. [facility], [address] [address], [place], [id number], [place] tel:[phone] [facility] No Information 4 Sergio Brunson. [address] [facility], [facility] [address], [place], [address] , [place]. tel: [phone] Offic/outpt E&m [facility], [address] [address], [place], [id number], [place] tel:[phone] [facility] GI Symptoms or Concerns (chief complaint) Chronic GERDAbnormal finding on imagingColon cancer screening 4 Sergio Brunson. [address] [facility], [facility] [address], [facility] [place], [address] , [place]. tel: [phone] Referring Provider: Jackie Valentino PAC, [address] [facility], [place], [address] . tel:[phone] [facility], [address] [address], [place], [id number], [place] tel:[phone] [facility] No Information 4 Yomi Haas. [address] [facility], [address], [facility] [place], [address] , [place]. tel:[phone] Family History Family Member Type Diagnosis Age [...] ional interface ; Source: Other Registry Influenza, recombinant, quadrivalent, injectable, preservative free administered Note: MIIC bi-direct ional [...] i-directional interface ; Source: Other Registry Influenza, split virus, trivalent, injectable, preservative free administered Note: MIIC bi-direct ional interface ; Source: Other Registry Influenza, seasonal, injecta ble, preservative free administered Note: MIIC bi-direct ional interface ; Source: Other Registry Novel [id number], all formulations administered Note: MIIC bi-direct ional interface ; Source: Other Registry Influenza, split virus, trivalent, injectable, contains preservative administered Note: MIIC bi-direct ional interface ; Source: Other Registry Influenza, seasonal, injectable administe red Note: MIIC bi- directional interface ; Source: Other Registry Payers Payer name Insurance type Covered green party ID Authoriza tion(s) Blue [facility] [id number] Social History Type Description Quantity Date Captured Comments Sex Female Smoking Status No Information Chief Complaint And Reason For Visit No Information Reason For Referral Reason For Referral No Information Plan Of Treatment Date Type Action Status Referral Ordered: MRCP Biliary/Pancreatic Ducts WITHOUT Contrast Appointment date/timeframe: 12/03/2023 ordered Referral Ordered: Colonoscopy Appointment date/timeframe: 12/20/2023 ordered Referral Ordered: EGD Appointment date/timeframe: 12/20/2023 ordered History Of Present Illness Encounter Date Complaint History Of Prese nt Illness GI Symptoms or Concerns GI Symptoms or Concerns The carmen ent [...] No Information Instructions Date Instruction Additional Infor mation Hunter's Esophagus Related to H iatal hernia Colon Cancer Prevention Related to Hiatal hernia EGD and colonoscopy. MRCP.Information on GERD provided [...]
--- OUTSIDE RECORDS SUMMARY | 2024-01-06 03:21 | XMS_ITS | Continuity of Care Document ---
Author Organization [facility] Address [address] [address] [place] [address] Phone Care Team Providers Care Health Care Assistant Name Role Phone Waldo Vanessa MD Unavailable [...] Encounter [facility], [address] [address], [place], [address], [place] tel:[phone] [facility] No Information 4 Yomi Haas. [address] [facility], [address], [place], [place], [address] , [place]. tel:[phone] [facility], [address] [address], [place], [address], [place] tel:[phone] [facility] GI Symptoms or Concerns (chief complaint) Hiatal herniaHiatal herniaEncounter for screening for malignant neoplasm of colonBarrett's esophagus without dysplasiaHeartburn 4 Kavin Sales. [address] [facility], [address], [place], [address] , [place]. tel: [phone] Referring Provider: Referral Self, USE FOR SELF REFERRALS. [facility], [address] [address], [place], [address], [place] tel:[phone] [facility] No Information 4 Sergio Brunson. [address] [facility], [facility] [address], [place], [address] , [place]. tel: [phone] Offic/outpt E&m [facility], [address] [address], [place], [address], [place] tel:[phone] [facility] GI Symptoms or Concerns (chief complaint) Chronic GERDAbnormal finding on imagingColon cancer screening 4 Sergio Brunson. [address] [facility], [facility] [address], [facility] [place], [address] , [place]. tel: [phone] Referring Provider: Jackie Valentino PAC, [address] [facility], [place], [address] . tel:[phone] [facility], [address] [address], [place], [id number], [place] tel:[phone] [facility] No Information 4 Yomi Haas. [address] [facility], [address], [facility] [place], [address] , [place]. tel:[phone] Family History Family Member Type Diagnosis Age [...] ional interface ; Source: Other Registry Novel [id number], all formulations administered Note: MIIC bi-direct ional interface ; Source: Other Registry Influenza, split virus, trivalent, injectable, contains preservative administered Note: MIIC bi-direct ional interface ; Source: Other Registry Influenza, seasonal, injectable administe red Note: MIIC bi- directional interface ; Source: Other Registry Payers Payer name Insurance type Covered green party ID Authoriza tion(s) Blue [facility] [id number] Social History Type Description Quantity Date Captured [...]
--- OUTSIDE RECORDS SUMMARY | 2024-01-06 03:21 | XMS_ITS | Continuity of Care Document ---
Author Organization [facility] Address [address] [address] [place] [address] Phone Care Team Providers Care Business Risk Analyst Name Role Phone Waldo Vanessa MD Unavailable [...] Encounter [facility], [address] [address], [place], [address], [place] tel:[phone] [facility] No Information 4 Yomi Haas. [address] [facility], [address], [place], [place], [address] , [place]. tel:[phone] [facility], [address] [address], [place], [address], [place] tel:[phone] [facility] GI Symptoms or Concerns (chief complaint) Hiatal herniaHiatal herniaEncounter for screening for malignant neoplasm of colonBarrett's esophagus without dysplasiaHeartburn 4 Kavin Sales. [address] [facility], [address], [facility] [place], [id number] , [place]. tel: [phone] Referring Provider: Referral Self, USE FOR SELF REFERRALS. [facility], [address] [address], [place], [id number], [place] tel:[phone] [facility] No Information 4 Sergio Brunson. [address] [facility], [facility] [address], [place], [address] , [place]. tel: [phone] Offic/outpt E&m [facility], [address] [address], [place], [id number], [place] tel:[phone] [facility] GI Symptoms or Concerns (chief complaint) Chronic GERDAbnormal finding on imagingColon cancer screening 4 Sergio Brunson. [address] [facility], [facility] [address], [facility] [place], [address] , [place]. tel: [phone] Referring Provider: Jackie Valentino PAC, [address] [facility], [place], [address] . tel:[phone] [facility], [address] [address], [place], [id number], [place] tel:[phone] [facility] No Information 4 Yomi Haas. [address] [facility], [address], [facility] [place], [address] , [place]. tel:[phone] Family History Family Member Type Diagnosis Age [...] ional interface ; Source: Other Registry Novel [id number], all formulations administered Note: MIIC bi-direct ional interface ; Source: Other Registry Influenza, split virus, trivalent, injectable, contains preservative administered Note: MIIC bi-direct ional interface ; Source: Other Registry Influenza, seasonal, injectable administe red Note: MIIC bi- directional interface ; Source: Other Registry Payers Payer name Insurance type Covered democrat ID Authoriza tion(s) Blue [facility] [id number] Social History Type Description Quantity Date Captured [...]
--- OUTSIDE RECORDS SUMMARY | 2024-01-06 03:21 | XMS_ITS | Continuity of Care Document ---
Author Organization [facility] Address [address] [address] [place] [address] Phone Care Team Providers Care Director Reactor Projects Name Role Phone Waldo Vanessa MD Unavailable [...] Encounter [facility], [address] [address], [place], [address], [place] tel:[phone] [facility] No Information 4 Yomi Haas. [address] [facility], [address], [place], [address] , [place]. tel:[phone] [facility], [address] [address], [place], [address], [place] tel:[phone] [facility] GI Symptoms or Concerns (chief complaint) Hiatal herniaHiatal herniaEncounter for screening for malignant neoplasm of colonBarrett's esophagus without dysplasiaHeartburn 4 Kavin Sales. [address] [facility], [address], [facility] [place], [address] , [place]. tel: [phone] Referring Provider: Referral Self, USE FOR SELF REFERRALS. [facility], [address] [address], [place], [address], [place] tel:[phone] [facility] No Information 4 Sergio Brunson. [address] [facility], [facility] [address], [place], [address] , [place]. tel: [phone] Offic/outpt E&m [facility], [address] [address], [place], [address], [place] tel:[phone] [facility] GI Symptoms or Concerns (chief complaint) Chronic GERDAbnormal finding on imagingColon cancer screening 4 Sergio Brunson. [address] [facility], [facility] [address], [facility] [place], [address] , [place]. tel: [phone] Referring Provider: Jackie Valentino PAC, [address] [facility], [place], [address] . tel:[phone] [facility], [address] [address], [place], [id number], [place] tel:[phone] [facility] No Information 4 Yomi Haas. [address] [facility], [address], [facility] [place], [address] , [place]. [phone] Family History Family Member Type Diagnosis Age [...] ional interface ; Source: Other Registry Novel [id number], all formulations administered Note: MIIC bi-direct ional interface ; Source: Other Registry Influenza, split virus, trivalent, injectable, contains preservative administered Note: MIIC bi-direct ional interface ; Source: Other Registry Influenza, seasonal, injectable administe red Note: MIIC bi- directional interface ; Source: Other Registry Payers Payer name Insurance type Covered libertarian ID Authoriza tion(s) Blue [facility] [id number] Social History Type Description Quantity Date Captured [...]
--- OUTSIDE RECORDS SUMMARY | 2024-01-06 03:21 | XMS_ITS | Continuity of Care Document ---
Author Organization [facility] Address [address] [address] [place] [address] Phone Care Team Providers Care Senior Government Program Analyst Name Role Phone Waldo Vanessa MD [...] Encounter [facility], [address] [address], [place], [address], [place] tel:[phone] [facility] No Information 4 Yomi Haas. [address] [facility], [address], [place], [place], [address] , [place]. tel:[phone] [facility], [address] [address], [place], [address], [place] tel:[phone] [facility] GI Symptoms or Concerns (chief complaint) Hiatal herniaHiatal herniaEncounter for screening for malignant neoplasm of colonBarrett's esophagus without dysplasiaHeartburn 4 Kavin Sales. [address] [facility], [address], [facility] [place], [address] , [place]. tel: [phone] Referring Provider: Referral Self, USE FOR SELF REFERRALS. [facility], [address] [address], [place], [address], [place] tel:[phone] [facility] No Information 4 Sergio Brunson. [address] [facility], [facility] 500, [place], [address] , [place]. tel: [phone] Offic/outpt E&m [facility], [address] [address], [place], [address], [place] tel:[phone] [facility] GI Symptoms or Concerns (chief complaint) Chronic GERDAbnormal finding on imagingColon cancer screening 4 Sergio Brunson. [address] [facility], [facility] 500, [facility] [place], [address] , [place]. tel: [phone] Referring Provider: Jackie Valentino PAC, [address] [facility], [place], [address] . tel:[phone] [facility], [address] [address], [place], [address], [place] tel:[phone] [facility] No Information 4 Yomi Haas. [address] [facility], [address], [facility] [place], [address] , [place]. [phone] Family History Family Member Type Diagnosis Age [...] ional interface ; Source: Other Registry Novel [id number], all formulations administered Note: MIIC bi-direct ional interface ; Source: Other Registry Influenza, split virus, trivalent, injectable, contains preservative administered Note: MIIC bi-direct ional interface ; Source: Other Registry Influenza, seasonal, injectable administe red Note: MIIC bi- directional interface ; Source: Other Registry Payers Payer name Insurance type Covered democrat ID Authoriza tion(s) [facility] [id number] Social History Type Description Quantity Date Captured [...]
--- OUTSIDE RECORDS SUMMARY | 2024-01-06 03:21 | XMS_ITS | Continuity of Care Document ---
Author Organization [facility] Address [address] [address] [place] [address] Phone Care Team Providers Care Internet Marketing Coordinator Name Role Phone Waldo Vanessa MD Unavailable [...] Encounter [facility], [address] [address], [place], [address], [place] tel:[phone] [facility] No Information [address] [facility], [address], [place], [place], [address] , [place]. tel:[phone] [facility], [address] [address], [place], [address], [place] tel:[phone] [facility] GI Symptoms or Concerns (chief complaint) Hiatal herniaHiatal herniaEncounter for screening for malignant neoplasm of colonBarrett's esophagus without dysplasiaHeartburn [address] [facility], [address], [facility] [place], [address] , [place]. tel: [phone] Referring Provider: Referral Self, USE FOR SELF REFERRALS. [facility], [address] [address], [place], [id number], [place] tel:[phone] [facility] No Information [address] [facility], [facility] [address], [place], [address] , [place]. tel: [phone] Offic/outpt E&m [facility], [address] [address], [place], [address], [place] tel:[phone] [facility] GI Symptoms or Concerns (chief complaint) Chronic GERDAbnormal finding on imagingColon cancer screening [address] [facility], [facility] [address], [facility] [place], [address] , [place]. tel: [phone] Referring Provider: Jackie Valentino PAC, [address] [facility], [place], [address] . tel:[phone] [facility], [address] [address], [place], [id number], [place] tel:[phone] [facility] No Information [address] [facility], [address], [facility] [place], [address] , [place]. tel:[phone] Family History Family Member Type Diagnosis Age [...] ional interface ; Source: Other Registry Novel [id number], all formulations administered Note: MIIC bi-direct ional interface ; Source: Other Registry Influenza, split virus, trivalent, injectable, contains preservative administered Note: MIIC bi-direct ional interface ; Source: Other Registry Influenza, seasonal, injectable administe red Note: MIIC bi- directional interface ; Source: Other Registry Payers Payer name Insurance type Covered green party ID Authoriza tion(s) [facility] [id number] Social History Type Description Quantity Date Captured [...]
--- OUTSIDE RECORDS SUMMARY | 2024-01-06 03:21 | XMS_ITS | Continuity of Care Document ---
Author Organization [facility] Address [address] [address] [place] [address] Phone Care Team Providers Care Poultry Husbandry Worker Name Role Phone Waldo Vanessa MD Unavailable [...] Encounter [facility], [address] [address], [place], [address], [place] tel:[phone] [facility] No Information 4 Yomi Haas. [address] [facility], [address], [place], [place], [address] , [place]. tel:[phone] [facility], [address] [address], [place], [address], [place] tel:[phone] [facility] GI Symptoms or Concerns (chief complaint) Hiatal herniaHiatal herniaEncounter for screening for malignant neoplasm of colonBarrett's esophagus without dysplasiaHeartburn 4 Kavin Sales. [address] [facility], [address], [facility] [place], [address] , [place]. tel: [phone] Referring Provider: Referral Self, USE FOR SELF REFERRALS. [facility], [address] [address], [place], [address], [place] tel:[phone] [facility] No Information 4 Sergio Brunson. [address] [facility], [address], [place], [address] , [place]. tel: [phone] Offic/outpt E&m [facility], [address] [address], [place], [address], [place] tel:[phone] [facility] GI Symptoms or Concerns (chief complaint) Chronic GERDAbnormal finding on imagingColon cancer screening 4 Sergio Brunson. [address] [facility], [address], [facility] [place], [address] , [place]. tel: [phone] Referring Provider: Jackie Valentino PAC, [address] [facility], [place], [address] . tel:[phone] [facility], [address] [address], [place], [address], [place] tel:[phone] [facility] No Information 4 Yomi Haas. [address] [facility], [address], [facility] [place], [address] , [place]. tel:[phone] Family History Family Member Type Diagnosis Age [...] ional interface ; Source: Other Registry Novel [id number], all formulations administered Note: MIIC bi-direct ional interface ; Source: Other Registry Influenza, split virus, trivalent, injectable, contains preservative administered Note: MIIC bi-direct ional interface ; Source: Other Registry Influenza, seasonal, injectable administe red Note: MIIC bi- directional interface ; Source: Other Registry Payers Payer name Insurance type Covered alliance party ID Authoriza tion(s) [facility] [id number] Social History Type Description Quantity Date Captured [...]
--- OUTSIDE RECORDS SUMMARY | 2024-01-06 03:21 | XMS_ITS | Continuity of Care Document ---
Author Organization [facility] Address [address] [address] [place] [address] Phone Care Team Providers Care City Controller Name Role Phone Waldo Vanessa MD Unavailable [...] Encounter [facility], [address] [address], [place], [id number], [place] tel:[phone] [facility] No Information 4 Yomi Haas. [address] [facility], [address], [place], [place], [id number] , [place]. tel:[phone] [facility], [address] [address], [place], [address], [place] tel:[phone] [facility] GI Symptoms or Concerns (chief complaint) Hiatal herniaHiatal herniaEncounter for screening for malignant neoplasm of colonBarrett's esophagus without dysplasiaHeartburn 4 Kavin Sales. [address] [facility], [address], [facility] [place] [id number] , [place]. tel: [phone] Referring Provider: Referral Self, USE FOR SELF REFERRALS. [facility], [address] [address], [place], [id number], [place] tel:[phone] [facility] No Information 4 Sergio Brunson. [address] [facility], [facility] [address], [place], [id number] , [place]. tel: [phone] Offic/outpt E&m [facility] [place], [address] [address], [place], [id number], [place] tel:[phone] [facility] GI Symptoms or Concerns (chief complaint) Chronic GERDAbnormal finding on imagingColon cancer screening 4 Sergio Brunson. [address] [facility], [facility] [address], [facility] [place], [address] , [place]. tel: [phone] Referring Provider: Jackie Valentino PAC, [address] [facility], [place], [address] . tel:[phone] [facility], [address] [address], [place], [id number], [place] tel:[phone] [facility] No Information 4 Yomi Haas. [address] [facility], [address], [facility] [place], [address] , [place]. tel:[phone] Family History Family Member Type Diagnosis Age [...] ional interface ; Source: Other Registry Novel [id number], all formulations administered Note: [facility] bi-direct ional interface ; Source: Other Registry Influenza, split virus, trivalent, injectable, contains preservative administered Note: [facility] bi-direct ional interface ; Source: Other Registry Influenza, seasonal, injectable administe red Note: [facility] bi- directional interface ; Source: Other Registry Payers Payer name Insurance type Covered democrat ID Authoriza tion(s) [facility] [id number] Social History Type Description Quantity Date Captured [...] or Concerns GI Symptoms or Concerns The carmne ent was seen today in clinic in- [...]
--- OUTSIDE RECORDS SUMMARY | 2024-01-06 03:21 | XMS_ITS | Continuity of Care Document ---
Author Organization [facility] Address [address] [address] [place] [address] Phone Care Team Providers Care Bakery Clerk Name Role Phone Waldo Vanessa MD Unavailable [...] Encounter [facility], [address] [address], [place], [id number], [place] tel:[phone] [facility] No Information 4 Yoim Haas. [address] [facility], [address], [place], [place], [address] , [place]. tel:[phone] [facility], [address] [address], [place], [address], [place] tel:[phone] [facility] GI Symptoms or Concerns (chief complaint) Hiatal herniaHiatal herniaEncounter for screening for malignant neoplasm of colonBarrett's esophagus without dysplasiaHeartburn 4 Kavin Sales. [address] [facility], [address], [facility], [id number] , [place]. tel: [phone] Referring Provider: Referral Self, USE FOR SELF REFERRALS. [facility], [address] [address], [place], [id number], [place] tel:[phone] [facility] No Information 4 Sergio Brunson. [address] [facility], [facility] [address], [place], [address] , [place]. tel: [phone] Offic/outpt E&m [facility] [place], [address] [address], [place], [id number], [place] tel:[phone] [facility] GI Symptoms or Concerns (chief complaint) Chronic GERDAbnormal finding on imagingColon cancer screening 4 Sergio Brunson. [address] [facility], [facility] [address], [facility] [place] [place], [address] , [place]. tel: [phone] Referring Provider: Jackie Valentino PAC, [address] [facility], [place], [address] . tel:[phone] [facility], [address] [address], [place], [id number], [place] tel:[phone] [facility] No Information 4 Yomi Haas. [address] [facility], [address], [facility] [place], [address] , [place]. tel:[phone] Family History Family Member Type Diagnosis Age [...] ional interface ; Source: Other Registry Novel [id number], all formulations administered Note: [facility] bi-direct ional interface ; Source: Other Registry Influenza, split virus, trivalent, injectable, contains preservative administered Note: [facility] bi-direct ional interface ; Source: Other Registry Influenza, seasonal, injectable administe red Note: [facility] bi- directional interface ; Source: Other Registry Payers Payer name Insurance type Covered alliance party ID Authoriza tion(s) [facility] [id number] Social History Type Description Quantity Date Captured [...]
--- OUTSIDE RECORDS SUMMARY | 2024-01-06 03:21 | XMS_ITS | Continuity of Care Document ---
Author Organization [facility] Address [address] [address] [place] [address] Phone Care Team Providers Care Hereditary Cancer Program Coordinator Name Role Phone Waldo Vanessa MD [...] Encounter [facility], [address] [address], [place], [id number], [place] tel:[phone] [facility] No Information 4 Yomi Haas. [address] [facility], [address], [place], [place], [address] , [place]. tel:[phone] [facility], [address] [address], [place], [id number], [place] tel:[phone] [facility] GI Symptoms or Concerns (chief complaint) Hiatal herniaHiatal herniaEncounter for screening for malignant neoplasm of colonBarrett's esophagus without dysplasiaHeartburn 4 Kavin Sales. [address] [facility], [address], [facility] [place], [address] , [place]. tel: [phone] Referring Provider: Referral Self, USE FOR SELF REFERRALS. [facility], [address] [address], [place], [id number], [place] tel:[phone] [facility] No Information 4 Sergio Brunson. [address] [facility], [facility] [address], [place], [address] , [place]. tel: [phone] Offic/outpt E&m [facility] [place], [address] [address], [place], [id number], [place] tel:[phone] [facility] GI Symptoms or Concerns (chief complaint) Chronic GERDAbnormal finding on imagingColon cancer screening 4 Sergio Brunson. [address] [facility], [facility] [address], [facility] [place], [address] , [place]. tel: [phone] Referring Provider: Jackie Valentino PAC, [address] [facility], [place], [address] . tel:[phone] [facility], [address] [address], [place], [id number], [place] tel:[phone] [facility] No Information 4 Yomi Haas. [address] [facility], [address], [facility] [place], [address] , [place]. tel:[phone] Family History Family Member Type Diagnosis Age [...] ional interface ; Source: Other Registry Novel [id number], all formulations administered Note: [facility] bi-direct ional interface ; Source: Other Registry Influenza, split virus, trivalent, injectable, contains preservative administered Note: [facility] bi-direct ional interface ; Source: Other Registry Influenza, seasonal, injectable administe red Note: [facility] bi- directional interface ; Source: Other Registry Payers Payer name Insurance type Covered republican ID Authoriza tion(s) [facility] [id number] Social History Type Description Quantity Date Captured [...]
--- OUTSIDE RECORDS SUMMARY | 2024-01-06 03:21 | XMS_ITS | Continuity of Care Document ---
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 [address] [facility], [address], [place], [place], [address] , [place]. tel:[phone] [facility], [address] [address], [place], [address], [place] tel:[phone] [facility] GI Symptoms or Concerns (chief complaint) Hiatal herniaHiatal herniaEncounter for screening for malignant neoplasm of colonBarrett's esophagus without dysplasiaHeartburn 4 Kavin Sales. [address] [facility], [address], [facility] [place], [id number] , [place]. tel: [phone] Referring Provider: Referral Self, USE FOR SELF REFERRALS. [facility], [address] [address], [place], [id number], [place] tel:[phone] [facility] No Information 4 Sergio Brunson. [address] [facility], [facility] [address], [place], [id number] , [place]. tel: [phone] Offic/outpt E&m [facility], [address] [address], [place], [id number], [place] tel:[phone] [facility] GI Symptoms or Concerns (chief complaint) Chronic GERDAbnormal finding on imagingColon cancer screening 4 Sergio Brunson. [address] [facility], [facility] [address], [facility] [place], [address] , [place]. tel: [phone] Referring Provider: Jackie Valentino PAC, [address] [facility], [place], [address] . tel:[phone] [facility], [address] [address], [place], [id number], [place] tel:[phone] [facility] No Information 4 Yomi Haas. [address] [facility], [address], [facility] [place], [address] , [place]. [phone] Family History Family Member Type Diagnosis Age [...] ional interface ; Source: Other Registry Novel [id number], all formulations administered Note: [facility] bi-direct ional interface ; Source: Other Registry Influenza, split virus, trivalent, injectable, contains preservative administered Note: [facility] bi-direct ional interface ; Source: Other Registry Influenza, seasonal, injectable administe red Note: [facility] bi- directional interface ; Source: Other Registry Payers Payer name Insurance type Covered democrat ID Authoriza tion(s) [facility] [id number] Social History Type Description Quantity Date Captured [...]
--- OUTSIDE RECORDS SUMMARY | 2025-04-11 12:53 | XMS_ITS | Clinical Summary ---
Author Organization [facility] Address [address] [place] [address] Care Team Providers Care Materials Planning Analyst Name Role Phone Unavailable Primary Care Provider Unavailabl e Allergies Active Allergy Reactions Criticality Noted Date Comments Azithromycin GI intolerance 08/24/2018 Stomach ache Medications pantoprazole (ProtoNix) 20 mg EC tablet Take 20 mg by mouth in the morning. 3 Active cetirizine (ZyrTEC) 10 mg tablet Take by mouth. Activ e fluticasone (Flonase) 50 mcg/actuation nasal spray Administer 1 spray into each nostril in the morning. Shake gently. Before first use, prime pump. After use, clean tip and replace cap. Active diphenhydrAMINE (BENADryl) 25 mg capsule Take 25 mg by mouth every 6 (six) hours if needed for itching. 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
--- OUTSIDE RECORDS SUMMARY | 2025-04-11 12:55 | XMS_ITS | Clinical Summary ---
Author Organization [facility] Address [address] [place] [address] Care Team Providers Care Brand Specialist Name Role Phone Celia Nelson Primary Care Provider Allergies Active Allergy Reactions Criticality Noted Date Comments Azithromycin Stomach Upset 08/24/2018 Stomach ache Medications [id number] A-herbal no.245 200 mcg- 37.5 mg chew Take 2 gum by mouth. 0 8 Active cetirizine (ZYRTEC) 10 mg tablet Take 1 tablet by mouth once daily. 0 0 Active fluticasone (50 mcg per actuation) nasal solution (FLONASE)Indic ations:Recurre nt sinusitis Inhale 2 Sprays into both nostrils once daily. INHALE 1 SPRAY INTO BOTH NOSTRILS ONCE DAILY. 3 g 4 0 Active pantoprazole (PROTONIX) 20 mg tabletIndicati ons:Chronic GERD TAKE ONE TABLET BY MOUTH ONE TIME DAILY 90 Tablet 5 Active pantoprazole (PROTONIX) 20 mg tabletIndicati ons:Chronic GERD TAKE ONE TABLET BY MOUTH ONE TIME DAILY 90 Tablet 5 025 Discontinued Active Problems Problem Noted Date Diagnosed Date H/O total hysterectomy 09/20/2021 Routine adult health maintenance 07/23/2013 Overview (07/23/2013): Colonoscopy 06/2013 incomplete colonoscopy, recommend BE Recurrent sinusitis 02/13/2010 Encounters Date Type Department Care Team Description 03/26/2025 Refill [facility] [address] [place] [address] Celia Nelson PA Refill Request (Pantoprazole) from Last 3 Months Immunizations Immunization Administration Dates Next Due COVID-19 vaccine ([employer] 30mcg/0.3mL) 12YO+ BIVALENT PF, MDV 04/17/2022 COVID-19 vaccine ([employer] 30mcg/0.3mL) PF, MDV 04/18/2021,10/06/2020,09/15/2020 Influenza A (H1N1), Inactivated 04/14/2009 Influenza A (H1N1), Inactiva shruti (Age >=3 Years) 04/14/2009 Influenza RIV4 (Age 18+ Year s) PRESERV FREE 03/12/2022 Influenza, High-dose Inactivated 03/27/2024 Influenza, IIV3 (Age 6-35 mos) 05/02/2009 Influenza, IIV3 (Age >=3 years) 02/25/20 13,03/27/2011,05/02/2009,2002 Influenza, IIV4 03/30/2023,,02/28/2019,2017,03/15/2016,04/25/2015,04/12/2014 Influenza, IIV4 (=>6mos) MDV 03/13/2020,02/07/20 17 Pneumococcal Conj 20-valent (Prevnar 20) 04/17/2024 Td (Age >=7 Years) 11/24/2003 Tdap 03/23/2011 Zoster (Shingrix-RZV, recombinant) 10/02/2019, Zoster (Zostavax-ZVL, live) 04/10/2013 Family History Medical History Relation Name Comments Other Brother 4 afib Other Father afib, obese Other Mother Other Sister 3 ra Cancer-breast No Family History Relation Name Status Comments Brother 1 Alive Brother 2 Alive Brother 3 Alive Brother 4 Father Mother Alive Sister 1 Alive Sister 2 Alive Sister 3 Social History Tobacco Use Types Packs/Day Years Used Date Smoking Tobacco: Never Smokeless Tobacco: Never Tobacco Cessation:Counseling Given: Yes Alcohol Use Standard Drinks/Week Comments Yes 7 (1 standard drink = 0.6 oz pur e alcohol) PHQ-2 Answer Date Recorded PHQ-2 TOTAL SCORE 0 11/05/2024 Social Connections Answer Date Recorded Do you often feel lonely or isolated from those around you? 0 04/17/2024 Financial Resource Strain Answer Date R ecorded Difficulty of Paying Living Expenses 3 04/17/2024 Difficulty of Paying Living Expenses Not on file 04/17/2024 Food Insecurity Answer Date Recorded Do you worry your food will run out before you are able to buy more? 1 04/17/2024 Transportation Needs Answer Date Record ed Does lack of transportation keep you from medica l appointments? 1 04/17/2024 Does lack of transportation keep you from work, meetings or getting things that you need? 1 04/17/2024 Housing Stability Answer Date Recorded What is your housing situation today? 1 04/17/2024 Utilities Answer Date Recorded Do you have trouble paying f or utilities (for example, heat, electricity, water, phone)? 1 04/17/2024 Comments No Sex and Gender Information Value Date Recorded Sex Assigned at Not on file Legal Sex Female 5:24 AM KNITTED GARMENT FINISHER Gender Identity Not on file Sexual Orientation Not on file Obstetrics History Para Term AB IAB SAB Ectopic Multiple Livin g Live Births 3 3 3 Date Outcome GA Total Labor Labor/2nd/3rd Weight Sex Type Anes PTL Aileen A1 A5 Name Clin Term Term Term Last Filed Vital Signs Vital Sign Reading Time Taken Comments Blood Pressure 137/84 11/05/2024 2:48 PM CDT Pulse 72 11/05/2024 2:48 PM CDT Temperature 36.9 C (98.4 F) 11/05/2024 2:48 PM CDT Respiratory Rate 16 02/12/2023 3:42 PM CDT Oxygen Saturation 97% 11/05/2024 2:48 PM CDT Inhaled Oxygen Concentration - - Weight 56.7 kg (125 lb) 11/05/2024 2:48 PM CDT Height 148.6 cm (4' 10.5) 04/17/2024 9:19 AM CS T Body Mass Index 25.68 04/17/2024 9:19 AM KNITTED GARMENT FINISHER Plan of Treatment Upcoming Encounters Date Type Department Care Team (Late st Contact Info) Description 04/30/2025 1:00 PM KNITTED GARMENT FINISHER Office Visit [facility] [address] [place] [address] Celia Nelson PA [address] [place] [address] 04/30/2025 1:40 PM KNITTED GARMENT FINISHER Ancillary Procedure [facility] [address] [facility] [address] Health Maintenance Due Date Last Done Comments Tetanus booster 03/23/2021 03/23/2011, 11/24/2003 DEXA/DXA scan for age 65+ 11/01/2023 04/16/2023, Influenza Vaccine (#1) 2025 , 03/30/2023, 03/12/2022, Additional history exists BMI (ht and wt on same day) for age 18+ 04/17/2025 04/17/2024, 04/16/2023, 02/12/2023, Additional history exists Mammogram for age 45-75 04/17/2025 04/17/20 24, 04/16/2023, 04/17/2022, Additional history exists Depression screening for age 12+ 11/05/2025 11/05/2024, 02/07/2022, 02/06/2022, Additional history exists Lipids for age 45-75 04/17/2029 04/17/2024, 04/16/2023, 04/17/2022, Additional history exists RSV vaccine for adults or (1 - 1-dose 75+ series) 2033 Colonoscopy through age 75 12/19/2033 12/20/2023, Hepatitis C screening for age 18-79 Completed 04/25/2015 Zoster (shingles) series for age 50+ Completed 10/02/2019, 04/21/2019, 04/10/2013 Pneumococcal series for age 50+ Completed 04/17/2024 Hepatitis B series for 19+ Aged Out N o longer eligible based on patient's age to complete this topic Procedures Procedure Name Priority Date/Time Associated Diagnosis Comments LIPID PANEL W REFLEX MEASURED LDL Routine 04/17/2024 10:21 AM KNITTED GARMENT FINISHER Screening cholesterol level XR MAMMO WYATT BILAT SCREEN Routine 04/17/2024 10:18 AM KNITTED GARMENT FINISHER Encounter for screening mammogram for malignant neoplasm of breast SCAN-COLONOSCOPY 12/20/2023 2:00 PM CDT XR DXA BONE DENSITY 2 SITES AXIAL Routine 04/16/2023 9:12 AM KNITTED GARMENT FINISHER Post menopausal syndrome ANTI HCV Routine 04/25/2015 9:29 AM KNITTED GARMENT FINISHER Need for hepatitis C screening test from Last 3 Months or Most Recently Relevant to Health Maintenance Results * (ABNORMAL) LIPID PANEL W REFLEX MEASURED LDL (04/17/2024 10:21 AM KNITTED GARMENT FINISHER) CHOLESTEROL, TOTAL 257(H) <200 mg/dL [facility] HDL CHOLESTEROL 86 > OR = 50 mg/dL [facility] TRIGLYCERIDES 86 <150 mg/dL [facility] LDL-CHOLESTEROL 152(H) mg/dL (calc) [facility] Comment: Reference range: <100 Desirable range <100 mg/dL for primary prevention; <70 mg/dL for patients with CHD or diabetic patients with > or = 2 CHD risk factors. LDL-C is now calculated using the Jey-Judd calculation, which is a validated novel method providing better accuracy than the Friedewald equation in the estimation of LDL-C. Jey SS et al. GRAZYNA. 2013;310(19): 9128-9515 (http://education.Opendisc.Givit/faq/XCS195) CHOL/HDLC RATIO 3.0 <5.0 (calc) [facility] NON HDL CHOLESTEROL 171(H) <130 mg/dL (calc) [facility] Comment: For patients with diabetes plus 1 major ASCVD risk factor, treating to a non-HDL-C goal of <100 mg/dL (LDL-C of <70 mg/dL) is considered a therapeutic option. Blood BLOOD SPECIMEN / Unknown 04/17/2024 10:21 AM KNITTED GARMENT FINISHER 04/17/2024 10:22 AM KNITTED GARMENT FINISHER Celia CORNELIUS CHEMISTRY Final R esult [employer] [facility] [address] [place] [address], [facility] [address] [place] [address] * XR MAMMO WYATT BILAT SCREEN (04/17/2024 10:18 AM KNITTED GARMENT FINISHER) Anatomical Region Laterality Modality BREASTS, Breast Left, Breast Right Bilateral Mammography Impressions 04/17/2024 3:28 PM KNITTED GARMENT FINISHER There is no radiographic evidence for malignancy. Recommend annual mammograms. MAMMOGRAM ASSESSMENT: ACR 1 Negative PATIENTS: You will also receive a letter with your examination results in an easy to read format. If you have questions about your results, please contact your referring provider. Narrative 04/17/2024 3:28 PM KNITTED GARMENT FINISHER For Patients: As a result of the Cures Act, medical imaging exams and procedure reports are released immediately into your electronic medical record. You may view this report before your referring provider. If you have questions, please contact your health care provider. XR MAMMO WYATT BILAT SCREEN [[id number]] CLINICAL HISTORY: This is an asymptomatic 63 y.o. patient. INDICATION FOR EXAM: Mammogram Screening. TECHNIQUE: CC & MLO views were obtained. This study was evaluated with the assistance of Computer-Aided Detection. Breast Tomosynthesis was used in interpretation. COMPARISON FILM: Yes 04/16/23 [facility] 04/17/22 [facility] FINDINGS: The breasts are heterogeneously dense, which may obscure small masses. There are no dominant masses, suspicious micro calcifications or areas of architectural distortion. Celia CORNELIUS MAMMO Final R esult * SCAN-COLONOSCOPY (12/20/2023 2:00 PM CDT) Narrative Procedure Note Mónica Vale MD - 12/20/2023 1:01 PM CDT [facility] [address] [facility], [address], [place] [address] Patient Name: Joo Souza Gender: Female Exam Date: 12/20/2023 Visit Number: [id number] Age: 63 Years Date of : 1960 Attending MD: Mónica Vale MD Medical Record#: [id number] Procedure: Colonoscopy Indications: Colorectal cancer screening Referring MD: Referral Self Primary MD: Celia CORNELIUS Medications: Admitting Medications: 0.9% Normal Saline at TKO Intra Procedure Medications: Patient received monitored anesthesia care. Complications: No immediate complications Procedure: An examination of the heart and lungs was performed and found to be withinacceptable limits. . The patient was therefore deemed a reasonablecandidate for endoscopy and sedation. The risks and benefits of the procedure were explained to the patient.After obtaining informed consent, the patient received monitoredanesthesia care and I passed the scope without difficulty via the rectum to the cecum. The appendiceal orificeand ic valve were identified. The scope was retroflexed during theexamination The quality of the prep was excellent (Miralax/Gatorade/2tablets Bisacodyl/Magnesium Citrate). This was a complete examination throughout the entire colon. Findings: Somewhat tortuous sigmoid colon without other abnormalities. Anal canal: normal Remainder of the exam is normal. Impression: Colon cancer screening Preliminary Plan: Repeat colonoscopy in 10 years If you have signs or symptoms of lower GI illness or a new diagnosis ofcolon cancer in an immediate family member, you should contact your GIprovider or your primary provider to discuss whether your next examshould be repeated sooner. Return to your primary care provider as needed. Procedure: Upper GI Endoscopy Indications: Reflux Heartburn Provider: Mónica Vale MD Referring MD: Referral Self Primary MD: Celia CORNELIUS Medications: Admitting Medication: 0.9% Normal Saline at TKO Intra Procedure Medications: Patient received monitored anesthesia care. Complications: No immediate complications Procedure: An examination of the heart and lungs was performed within acceptablelimits. . The patient was therefore deemed a reasonable candidate forsedation. The risks and benefits were explained to the patient, who appeared tounderstand. After obtaining informed consent, the scope was passed underdirect vision. Throughout the procedure the patient's blood pressure,pulse and oxygen saturations were monitored. The scope was introducedthrough the mouth and advanced to the second portion of duodenum. Findings: Esophagus: The z-line is 33 centimeters from the incisors. Top of the gastric foldsis 34 centimeters from the incisors. Watkins colored mucosa suspicious for short segment Hunter's esophagus.Description - islands or tongues. C and M Criteria: C: 0 cm in length.M: 1 cm in length. Biopsy taken Stomach: The diaphragm hiatus is at 37 centimeters from the incisors. *Stomach Comments: Medium sized hiatal hernia. Otherwise normal appearinggastric mucosa. Duodenum: Normal duodenum. Impression: Hiatal hernia Preliminary Plan: Return to primary care provider as necessary. Recommendation Comments: Would recommend Omeprazole 20mg daily to helpprevent ongoing changes in the esophagus from reflux damage. Pathology Results: A: ESOPHAGUS, DISTAL, BIOPSY: 1. Specialized Hunter's mucosa 2. Negative for dysplasia MICROSCOPIC A: Performed Electronically signed by: Alfonso Jimenez MD Interpreted at [facility], [address] [place] [address] Orders Instruction(s)/Education: Instruction/Education Timeframe Assessment Hunter's Esophagus K44.9 Colon Cancer Prevention K44.9 Final Plan: Repeat colonoscopy in 10 years for screening. If you have signs orsymptoms of lower GI illness or a new diagnosis of colon cancer in animmediate family member, you should contact [facility] or your primary providerto discuss whether your next exam should be repeated sooner. Repeat Upper Endoscopy (EGD) in 3 years for Hunter's. We will attempt to contact you at appropriate intervals via U.S. mail. Wemay not be able to find you or contact you at that time, therefore youshould know that the responsibility for following our recommendation restswith you. If you don't hear from us at the time your procedure is due,please contact our office to schedule an appointment. If your contactinformation should change, please contact our office so that we can updateyour record. _Electronically signed by: Mónica Vale MD 12/20/2023 cc: Celia CORNELIUS us Mónica Vale MD OTHER Final Result * (ABNORMAL) XR DXA BONE DENSITY 2 SITES AXIAL (04/16/2023 9:12 AM KNITTED GARMENT FINISHER) Anatomical Region Laterality Modality Spine, HIPS, HIPL, HIPR Other Impressions 04/24/2023 9:06 AM KNITTED GARMENT FINISHER Osteopenia. RECOMMENDATIONS: The National Osteoporosis Foundation recommends [...] recommended in 2-3 years. Celia Nelson PA-C [facility] 04/24/2023 Narrative 04/24/2023 9:06 AM KNITTED GARMENT FINISHER For Patients: Results are automatically released to your [employer] ([employer]) account once available, in compliance with federal regulations. This means that you may see your results before your provider has had a chance to review them. Please allow 2-3 business days for your provider to comment on the results. XR DXA Bone Mineral Density (BMD) EXAM LOCATION: [facility] [address] [facility] [address] PATIENT NAME: Joo Souza DATE OF : 1960 EXAM DATE: 04/16/2023 REQUESTING PROVIDER: Celia Nelson PA GENDER AT : female HEIGHT: 4' 10.5 (04/16/2023) WEIGHT: 121 lb (04/16/2023) MENOPAUSAL STATUS: Postmenopausal RACE/ETHNICITY: White [...] two scanners are made by the same production staff worker. PROCEDURE: Dual-energy x-ray absorptiometry performed with routine technique. Reporting is completed in the form of a T-score. The T-score represents the standard deviation from peak bone mass based on young healthy adult. A Z-score is used for diagnosis in premenopausal women, and for men under the age of 50. FINDINGS: RESULT LUMBAR SPINE L1-L3 (L4) BMD: 0.997 g/cm2 T-Score: - 1.5 Z-Score: + 0.4 Change from prior in 2013: Decrease 6.3%. RESULTS FEMUR Left femoral neck BMD: 0.742 g/cm2 T-Score: - 2.1 Z-Score: - 0.5 Change from prior in 2013: Decrease 5.6%. Right femoral neck BMD: 0.725 g/cm2 T-Score: - 2.3 Z-Score: - 0.6 Change from prior in 2013: Decrease 8.6%. Left hip BMD: 0.785 g/cm2 T-Score: - 1.8 Z-Score: - 0.4 Change from prior in 2013: Decrease 7.6%. Right hip BMD: 0.781 g/cm2 T-Score: - 1.8 Z-Score: - 0.4 Change from prior in 2013: Decrease 6.9%. WHO criteria: Normal: T-score at or above -1 SD Osteopenia: T-score between -1.1 and -2.4 SD Osteoporosis: T-score at or below -2.5 SD FRAX RISK CALCULATION (USED FOR OSTEOPENIA ONLY): 10-year probability of major osteoporotic fracture: 15.3%. 10-year probability of hip fracture: 3.0%. us Celia CORNELIUS DEXA Final R esult * ANTI HCV [[id number]] (04/25/2015 9:29 AM KNITTED GARMENT FINISHER) HEPATITIS C ANTIBODY Non-Reacti ve Non-Reacti ve 04/25/2015 6:14 PM KNITTED GARMENT FINISHER [facility] Blood specimen (specimen) BLOOD SPECIMEN / Unknown Venipuncture / Unknown 04/25/2015 9:29 AM KNITTED GARMENT FINISHER 04/25/2015 9:29 AM KNITTED GARMENT FINISHER Narrative [facility] - 04/25/2015 6:14 PM KNITTED GARMENT FINISHER Antibodies to HCV not detected; does not exclude the possibility of exposure to HCV. us Celia CORNELIUS SEND OUTS Final R esult [facility] [address] [place] [address], [place] from Last 3 Months or Most Recently Relevant to Health Maintenance Insurance [facility] [employer] Care Teams Brand Specialist Relationship Specialty Start Date End Date Celia Nelson PA [address] [place] [address] PCP - General Family Practice 11/01/14
[2025-04-11 12:58] VITALS: BP 153/104; PULSE 77; RESP 16; TEMP 36.7; O2SAT 98; BMI 24.5
--- NOTE | 2025-04-11 13:10 | CRLHL7_ITS ---
For Patients: As a result of the Century Cures Act, medical imaging exams and procedure reports are released immediately into your electronic medical record. You may view this report before your referring provider. If you have questions, please contact your health care provider. INDICATION: Chest pain, burning sensation. TECHNIQUE: Chest 1 view. COMPARISON: 04/15/2023 FINDINGS: Cardiovasculature and mediastinum: Heart size is normal. Unremarkable mediastinum. Lungs and pleural spaces: Lungs are clear. No consolidative or interstitial opacity. No pleural effusion. No pneumothorax. Bones and soft tissues: No significant findings. IMPRESSION: No acute or significant findings. Dictated by Chantal Sanchez MD @ 04/11/2025 1:45:05 PM (Electronically Signed)
[2025-04-11 13:22] LABS: Hematocrit* 42.9 % (33.0-51.0); Hemoglobin* 13.9 gm/dL (12.0-16.0); Immature Granulocytes Abs Auto 0.01 K/uL (0.00-0.30); Immature Granulocytes Pct Auto 0.2 %; Lymphocytes Absolute Auto 1.83 K/uL (0.90-2.90); Mean Corpuscular HGB Conc 32 gm/dL (32-36); Mean Corpuscular Hemoglobin 29 pg (26-34); Mean Corpuscular Volume 89 fL (80-100); RDW Coefficient of Variation % 12.3 % (11.5-15.5); Red Blood Count* 4.83 m/uL (4.00-5.20); White Blood Count* 6.43 K/uL (4.50-11.00)
[2025-04-11 13:26] LABS: Slide Review Reflex No
[2025-04-11 13:28] LABS: Troponin, Point-of-Care* 0.02 ng/ml (0.01-0.04)
[2025-04-11 13:41] LABS: Albumin* 4.4 g/dL (3.3-5.0); Chloride* 103 mmol/L (96-114); Potassium* 4.2 mmol/L (3.6-5.1); Sodium* 136 mmol/L (135-149)
[2025-04-11 13:44] LABS: Alanine Aminotransferase* 33 U/L (4-35); Alkaline Phosphatase* 79 U/L (40-150); Anion Gap 6 mEq/L (7-15); Aspartate Amino Transferase* 41 U/L (12-35); Bilirubin Total* 0.9 mg/dL (0.1-1.5); Blood Urea Nitrogen* 18 mg/dL (7-30); Calcium* 9.2 mg/dL (8.4-10.6); Carbon Dioxide* 27 mmol/L (20-32); Creatinine* 0.6 mg/dL (0.5-1.5); Est. Creatinine Clearance* 48.11; Estimated Glomerular Filt Rate 99 ml/min; Glucose* 97 mg/dL (60-115); Total Protein* 7.0 g/dL (6.0-8.3)
--- NOTE | 2025-04-11 13:44 | ED.CHESTPAIN ---
HPI - Chest Pain General Chief Complaint: Chest Pain Stated Complaint: chest pain, burning sensation Time Seen by Provider: 04/11/25 12:50 History of Present Illness HPI narrative: Patient is a 64-year-old woman who presents with a 8 hours of chest pain. The pain is in the sternum and very similar to her chronic reflux symptoms however her symptoms are usually under good control. She has no diaphoresis nausea vomiting fevers or chills no cough no shortness of breath. She has no epigastric or abdominal pain no change in her bowel or bladder. Patient otherwise feeling well no other major complaints. Upon arrival EKG upon my review shows no acute abnormalities. Related Data Home Medications ?Medication ?Instructions ?Recorded ?Confirmed fluticasone propionate 50 intranasal 12/25/21 02/17/25 mcg/actuation nasal spray,suspension [id number]-[id number] sulfate .Route 12/25/21 02/17/25 cetirizine 10 mg tablet (24Hour 5 mg PO DAILY PRN 07/14/23 04/11/25 Allergy) pantoprazole 20 mg tablet,delayed 20 mg PO DAILY 07/14/23 04/11/25 release Allergies Allergy/AdvReac Type Severity Reaction Status Date / Time azithromycin Allergy Intermediate stomach Verified 04/11/25 13:03 pain Review of Systems Status of ROS Reports: 10 or more systems reviewed and unremarkable except as noted in History and below [facility] Medical History History of rheumatoid arthritis ?Z87.39 - Personal history of other diseases of the musculoskeletal system and connective tissue (ICD-10) Stress fracture ?M84.30XA - Stress fracture, unspecified site, initial encounter for fracture (ICD-10) Left shoulder pain ?M25.512 - Pain in left shoulder (ICD-10) Injury of left shoulder ?S49.92XA - Unspecified injury of left shoulder and upper arm, initial encounter (ICD-10) Encounter for preoperative screening laboratory testing for severe acute respiratory syndrome coronavirus 2 (SARS-CoV-2) ?Z01.812 - Encounter for preprocedural laboratory examination (ICD-10) ?Z20.822 - Contact with and (suspected) exposure to covid-19 (ICD-10) Recurrent sinusitis ?J32.9 - Chronic sinusitis, unspecified (ICD-10) Surgical History History of hip surgery (01/05/25) ?Z98.890 - Other specified postprocedural states (ICD-10) S/P arthroscopic partial medial meniscectomy of left knee (02/14/23) ?Z98.890 - Other specified postprocedural states (ICD-10) ?Z87.828 - Personal history of other (healed) physical injury and trauma (ICD-10) History of arthroscopic knee surgery ?Z98.890 - Other specified postprocedural states (ICD-10) History of bunionectomy of left great toe (12/25/21) ?Z98.890 - Other specified postprocedural states (ICD-10) History of bunionectomy (07/05/15) ?Z98.890 - Other specified postprocedural states (ICD-10) Status post right rotator cuff repair (02/15/17) ?Z98.890 - Other specified postprocedural states (ICD-10) Status post left rotator cuff repair (04/28/20) ?Z98.890 - Other specified postprocedural states (ICD-10) Hx of cholecystectomy ?Z90.49 - Acquired absence of other specified parts of digestive tract (ICD-10) H/O total hysterectomy ?Z90.710 - Acquired absence of both cervix and uterus (ICD-10) Social History Smoking Status: Never smoker Do you use any of these nicotine containing products: None How often do you have a drink containing alcohol: monthly or less Alcohol type: hard liquor How many standard drinks containing alcohol do you have on a typical day: 1 or 2 How often do you have six or more drinks on one occasion: Never AUDIT-C Alcohol total score: 1 Non-prescribed substance use: denies use Caffeine: Yes Are you using contraception or practicing any form of control: No service: No Exam Narrative Exam Narrative: EXAM GENERAL: Patient appears comfortable and well. EYES: No scleral icterus. LYMPH: No supraclavicular or cervical lymphadenopathy. SKIN: Visible skin seen during exam normal or with benign process only. EXT: No dependent lower extremity pedal edema. HEART: Regular rate and rhythm with no murmurs, rubs, or gallops. LUNGS: Clear to auscultation bilaterally with no crackles or wheezes. ABD: Soft, non tender, non distended. PSYCH: Good eye contact, speech is not pressured. Const Vital Signs, click to edit/add: Vital Signs - 24 hr 04/11/25 12:58 Temperature 98.0 F Pulse Rate [Pulse Oximeter] 77 Respiratory Rate 16 Blood Pressure [Right Upper Arm] 153/104 H Pulse Oximetry 98 Oxygen Delivery Method Room Air Course Course ED Course: Patient seen examined. EKG reviewed. CBC troponin D-dimer comprehensive metabolic panel pending. Chest x-ray ordered as well. Vital Signs Vital signs: Initial Vital Signs Temperature 98.0 F 04/11/25 12:58 Temperature Source Temporal Artery Scan 04/11/25 12:58 Pulse Rate 77 04/11/25 12:58 Respiratory Rate 16 04/11/25 12:58 Blood Pressure 153/104 H 04/11/25 12:58 Blood Pressure Mean 120 H 04/11/25 12:58 Pulse Oximetry 98 04/11/25 12:58 Oxygen Delivery Method Room Air 04/11/25 12:58 Vital Signs Temperature 98.0 F 04/11/25 12:58 Pulse Rate 77 04/11/25 12:58 Respiratory Rate 16 04/11/25 12:58 Blood Pressure 153/104 H 04/11/25 12:58 Pulse Oximetry 98 04/11/25 12:58 Oxygen Delivery Method Room Air 04/11/25 12:58 Temperature 98.0 F 04/11/25 12:58 Pulse Rate 77 04/11/25 12:58 Respiratory Rate 16 04/11/25 12:58 Blood Pressure 153/104 H 04/11/25 12:58 Pulse Oximetry 98 04/11/25 12:58 Oxygen Delivery Method Room Air 04/11/25 12:58 MDM - Chest Pain MDM Narrative Medical decision making narrative: Patient is a 64-year-old woman who presents with a substernal chest pain of 8 hours duration. EKG and troponin are reassuring as is D-dimer. She does have a history of reflux I did ask her to double her Protonix to b.i.d.. She will continue current medications follow-up with her doctor this coming week for further evaluation treatment. If her symptoms persist would consider stress echocardiogram. Lab Data Labs: Lab Results 04/11/25 04/11/25 Range/Units 13:13 13:24 WBC 6.43 (4.50-11.00) K/uL RBC 4.83 (4.00-5.20) m/uL Hgb 13.9 (12.0-16.0) gm/dL Hct 42.9 (33.0-51.0) % MCV 89 (80-100) fL MCH 29 (26-34) pg MCHC 32 (32-36) gm/dL RDW Coeff of Marilee 12.3 (11.5-15.5) % Plt Count 291 (140-440) K/uL Neut % (Auto) 61.0 (42.0-72.0) % Lymph % (Auto) 28.5 (20-44) % [place] % (Auto) 9.5 (0.0-11.0) % Eos % (Auto) 0.6 (0.0-7.0) % Baso % (Auto) 0.2 (0.0-3.0) % Neut # (Auto) 3.93 (1.7-7.0) K/uL Lymph # (Auto) 1.83 (0.90-2.90) K/uL [place] # (Auto) 0.60 (0.00-0.90) K/UL Eos # (Auto) 0.04 (0.00-0.50) K/uL Baso # (Auto) 0.01 (0.00-0.30) K/uL Abs Immat Gran (auto) 0.01 (0.00-0.30) K/uL Imm/Tot Granulo (auto) 0.2 % D-Dimer Quant (PE/DVT) 0.35 (0.00-0.50) ug/ml Sodium 136 (135-149) mmol/L Potassium 4.2 (3.6-5.1) mmol/L Chloride 103 (96-114) mmol/L Carbon Dioxide 27 (20-32) mmol/L Anion Gap 6 L (7-15) mEq/L BUN 18 (7-30) mg/dL Creatinine 0.6 (0.5-1.5) mg/dL Estimated Creat Clear 48.11 Estimated GFR 99 ml/min Glucose 97 (60-115) mg/dL Calcium 9.2 (8.4-10.6) mg/dL Total Bilirubin 0.9 (0.1-1.5) mg/dL AST 41 H (12-35) U/L ALT 33 (4-35) U/L Alkaline Phosphatase 79 (40-150) U/L Troponin I 0.02 (0.01-0.04) ng/mL Total Protein 7.0 (6.0-8.3) g/dL Albumin 4.4 (3.3-5.0) g/dL POC Troponin I 0.02 (0.01-0.04) ng/ml Discharge Plan Discharge Clinical Impression: Chest pain due to GERD Patient Disposition: Home, Self-Care Condition: Stable Instructions: GERD (Gastroesophageal Reflux Disease) (ED) Additional Instructions: Increase Protonix to twice daily on empty stomach. Continue the remainder of your medications Follow-up with your doctor if symptoms do not improve. Activity Level: No Restrictions Discharge Diet: Regular Prescriptions: No Action fluticasone propionate 50 mcg/actuation spray,suspension INTRANASAL Patient Comments: SPRAY 1 SPRAY INTO BOTH NOSTRILS ONCE DAILY. acnicfwb-dbg-fzaxjje sulfate [One Daily Multi-Vit w-Mineral] .Route cetirizine [24Hour Allergy] 10 mg tablet 5 mg PO DAILY PRN pantoprazole 20 mg tablet,delayed release (DR/EC) 20 mg PO DAILY Follow Up/Referrals: Celia Nelson PA-C [Primary Care Provider, Family Practice] Stand Alone Forms: [facility] Info Instructions
[2025-04-11 13:46] LABS: D Dimer Quantitative* 0.35 ug/ml (0.00-0.50)
[2025-04-11 14:31] VITALS: BP 135/71; PULSE 73; RESP 16; O2SAT 95
== END 2025-04-11 14:32 | disposition home or self-care (01) ==
PROVIDERS: Emergency Provider Internal Medicine; PCP Physician Assistant Medical
DX: R07.89 Other chest pain (principal); K21.9 Gastro-esophageal reflux disease without esophagitis
CPT/HCPCS: 36415; 71045; 80053; 84484; 85025; 85379; 93005; 99283; 99284

== ENCOUNTER 2025-05-12 14:16 | Outpatient (CLI) | payer BC, SELFPAY | END 2025-05-12 14:17 | disposition home or self-care (01) | LOC: AMB 05-16 17:56 | PROVIDERS: PCP Physician Assistant Medical; Visit Provider Family Medicine | DX: R07.89 Other chest pain (principal) | CPT/HCPCS: A0425; A0427 ==

== ENCOUNTER 2025-05-12 14:47 | Emergency (ER) | payer BC, SELFPAY ==
[2025-05-12] VITALS (53 sets, daily range): BP systolic 116–165; BP diastolic 68–94; PULSE 71–101; RESP 11–27; TEMP 36.7; O2SAT 93–100; BMI 25.1
--- OUTSIDE RECORDS SUMMARY | 2025-05-12 14:49 | XMS_ITS | Clinical Summary ---
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 INHALE 1 SPRAY INTO BOTH NOSTRILS ONCE DAILY. 3 g Active pantoprazole (PROTONIX) 20 mg tablet Indications:Chronic GERDTake 1 Tablet (20 mg) by mouth once daily. 90 Tablet 5Active pantoprazole (PROTONIX) 20 mg tablet Indications:Chronic GERDTAKE ONE TABLET BY MOUTH ONE TIME DAILY 90 Tablet Discontinued(Reorder (E-cancel not sent)) predniSONE (DELTASONE) 20 mg tablet Indications:Strain of left trapezius muscle, initial encounterTake 3 Tablets (60 mg) by mouth once daily with a meal for 2 days, THEN 2 Tablets (40 mg) once daily with a meal for 2 days, THEN 1 Tablet (20 mg) once daily with a meal for 2 days. 12 Tablet 511/Expired cyclobenzaprine (FLEXERIL) 10 mg tablet Indications:Strain of left trapezius muscle, initial encounterTake 1 Tablet (10 mg) by mouth at bedtime if needed for Muscle Spasm. 30 Tablet Discontinued(*Med complete/Regimen complete/Level of care change) Active Problems ProblemNoted DateDiagnosed DateH/O total tfwogwzudusk12/27/2022Routine adult health kdclacbzprc94/27/2014 Overview (07/23/2013): Colonoscopy 06/2013 incomplete colonoscopy, recommend BE Recurrent tidqhasoy67/20/2010 Encounters DateTypeDepartmentCare UgflGsweborpyjl90/08/2025Results Follow-Up [facility] [address] [place] [address] Celia Nelson PA 04/30/2025 1:40 PM CSTAncillary Procedure [facility] [address] [place] [address] 04/30/2025 1:00 PM CSTOffice Visit [facility] [address] [place] [address] Celia Nelson PA Physical (64 years old)04/30/20251489Euzrpc45/21/2025 10:10 AM CSTOffice Visit [facility] [address] [place] [address] Natacha Cedillo, Musculoskeletal Problem (Left side Shoulder blade down the arm to the neck, p7yvdfwq /)04/16/20251231Xguflj89/16/2025Orders Only [facility] Scanner 1 scan: (1-Ord) GIANNI DUPONT CHEST 1V PORTABLE, Refill [facility] [address] [place] [address] Celia Nelson PA Refill Request (Pantoprazole)from Last 3 Months Immunizations ImmunizationAdministration DatesNext DueCOVID-19 VACCINE MNEXSPIKE (MODERNA 10MCG/0.2ML) 12YO+ PFS5COVID-19 vaccine (Pfizer-BioNTech 30mcg/0.3mL) 12YO+ BIVALENT PF, MDV12COVID-19 vaccine (Pfizer-BioNTech 30mcg/0.3mL) PF, MDV106/18/2020,10/06/2020,09/15/2020Influenza A (H1N1), Vlvlkihdsya37/19/2009 Influenza A (H1N1), Inactivated (Age >=3 Years)04/14/2009Influenza RIV4 (Age 18+ Years) PRESERV FREE03/12/2022Influenza, High-dose Nzeqngrzuqs12/19/2025, 03/27/2024Influenza, IIV3 (Age 6-35 mos)05/02/2009Influenza, IIV3 (Age >=3 years)02/24/2013,03/27/2011,05/02/2009,05/08/2003Influenza, FJY283/08/2022, 04/29/2021,02/28/2019,03/01/2018,03/15/2016,04/25/2015,04/12/2014Influenza, IIV4 (=>6mos) MDV1,02/06/2017Pneumococcal Conj 20-valent (Prevnar 20) 04/17/2024Td (Age >=7 Years)11/24/2003Tdap1Zoster (Shingrix-RZV, recombinant)10/02/2019,04/21/2019Zoster (Zostavax-ZVL, live)04/10/2013 Family History Medical HistoryRelationNameCommentsAtrial fibrillationBrother 1TedStrokeBrother 1TedGood HealthBrother 2BruceGood HealthBrother 3JohnOtherFatherafib, obeseOther MotherAsthmaSister 1BarbRheum arthritisSister 1BarbAtrial fibrillationSister 2 CindyCancer-breastNo Family HistoryRelationNameStatusCommentsBrother 1TedAlive Brother 2BruceAliveBrother 3JohnAliveFatherDeceasedMotherAliveSister 1BarbAlive Sister 2CindyAlive Social History Tobacco UseTypesPacks/DayYears UsedDateSmoking Tobacco: NeverSmokeless Tobacco: Never Tobacco Cessation:Counseling Given: Yes Alcohol UseStandard Drinks/WeekCommentsYes7 (1 standard drink = 0.6 oz pure alcohol)PHQ-2AnswerDate RecordedPHQ-2 TOTAL DZBMT226Social Connections AnswerDate RecordedDo you often feel lonely or isolated from those around you?0 04/30/2025Financial Resource StrainAnswerDate RecordedDifficulty of Paying Living Lxdtzdrs848/05/2025Difficulty of Paying Living ExpensesNot on file 04/30/2025Food InsecurityAnswerDate RecordedDo you worry your food will run out before you are able to buy more?Transportation NeedsAnswerDate RecordedDoes lack of transportation keep you from medical appointments?1 04/30/2025Does lack of transportation keep you from work, meetings or getting things that you need?Housing StabilityAnswerDate RecordedWhat is your housing situation today?UtilitiesAnswerDate RecordedDo you have trouble paying for utilities (for example, heat, electricity, water, phone)?1 04/30/2025CommentsNoSex and Gender InformationValueDate RecordedSex Assigned at BirthNot on fileLegal XfrYsettg02/14/2013 5:24 AM CSTGender Identity Not on fileSexual OrientationNot on file Obstetrics History GravidaParaTermPretermABIABSABEctopicMultipleLivingLive Ekaaks505WfefSrjrsnpHL Total LaborLabor/2nd/5wlSyhstrDyyUiqhPconNUQWowH8V8VfjzUemhCoxkHfvfFhez Last Filed Vital Signs Vital SignReadingTime TakenCommentsBlood Bilxpzyb755/7804/30/2025 12:58 PM PRINCIPAL BIOINFORMATICS SPECIALIST Rebtg675504/30/2025 12:58 PM IQJDrwaqrcbbyy52.9 ??C (98.4 ??F)11/05/2024 2:48 PM CDTRespiratory Echa727802/12/2023 3:42 PM CDTOxygen Zuudwkluqv34%04/16/2025 10:09 AM CSTInhaled Oxygen Concentration--Tajrfr90.5 kg (120 lb 3.2 oz)04/30/2025 12:58 PM CLXWgfvrp750.3 cm (4' 10)04/30/2025 12:58 PM CSTBody Mass Index25.12 04/30/2025 12:58 PM PRINCIPAL BIOINFORMATICS SPECIALIST Plan of Treatment Health MaintenanceDue DateLast DoneCommentsRSV vaccine for adults or (1 - Risk 50-74 years 1-dose series)2008Tetanus kvmmbec9503/23/2021 03/23/2011, 11/24/2003DEXA/DXA scan for age 65+, 04/12/2014 COVID-19 vaccine series ( season), 03/27/2024, 05/11/2023, Additional history existsDepression screening for age 12+11/05/2025 11/05/2024, 02/07/2022, 02/06/2022, Additional history existsBMI (ht and wt on same day) for age 18+, 04/17/2024, 04/16/2023, Additional history existsMammogram for age 45-75, 04/17/2024, 04/16/2023, Additional history existsLipids for age 45-75, 04/17/2024, 04/16/2023, Additional history existsColonoscopy through age 75 , 07/23/2013Hepatitis C screening for age 18-79Completed 04/25/2015Zoster (shingles) series for age 50+Wfnoucugw07/08/2020, 04/21/2019, 04/10/2013Pneumococcal series for age 50+Dimyqxufz46/22/2024Influenza Vaccine Aswuxbyek01/19/2025, 03/27/2024, 03/30/2023, Additional history existsHepatitis B series for 19+Aged OutNo longer eligible based on patient's age to complete this topic Procedures Procedure NamePriorityDate/TimeAssociated DiagnosisCommentsXR MAMMO WYATT BILAT XPBYGCGofsasf25/05/2025 1:54 PM PRINCIPAL BIOINFORMATICS SPECIALIST Visit for screening mammogram GLUCOSE, UIIGRZBvfbrcs82/05/2025 1:38 PM PRINCIPAL BIOINFORMATICS SPECIALIST Screening for diabetes mellitus LIPID PANEL W REFLEX MEASURED KZZQwlnamp38/05/2025 1:38 PM PRINCIPAL BIOINFORMATICS SPECIALIST Screening cholesterol level SCAN-RADIOLOGY YLDXXY8604/11/2025 12:00 AM PRINCIPAL BIOINFORMATICS SPECIALIST SCAN-PEORMQXLVYA87/26/2024 2:00 PM CDT XR DXA BONE DENSITY 2 SITES CVJQDLdiumod00/21/2023 9:12 AM PRINCIPAL BIOINFORMATICS SPECIALIST Post menopausal syndrome ANTI KPNYwjnpaz44/30/2015 9:29 AM PRINCIPAL BIOINFORMATICS SPECIALIST Need for hepatitis C screening test from Last 3 Months or Most Recently Relevant to Health Maintenance Results * XR MAMMO WYATT BILAT SCREEN (04/30/2025 1:54 PM PRINCIPAL BIOINFORMATICS SPECIALIST)Anatomical RegionLaterality ModalityBREASTS, Breast Left, Breast RightBilateralMammographySpecimen (Source)Anatomical Location / LateralityCollection Method / VolumeCollection TimeReceived Time Impressions 04/30/2025 2:44 PM PRINCIPAL BIOINFORMATICS SPECIALIST There is no radiographic evidence for malignancy. Recommend annual mammograms. MAMMOGRAM ASSESSMENT: ??ACR 1 Negative PATIENTS: You will also receive a letter with your examination results in an easy to read format. ??If you have questions about your results, please contact your referring provider. Narrative 04/30/2025 2:44 PM PRINCIPAL BIOINFORMATICS SPECIALIST For Patients: As a result of the Cures Act, medical imaging exams and procedure reports are released immediately into your electronic medical record. You may view this report before your referring provider. If you have questions, please contact your health care provider. XR MAMMO WYATT BILAT SCREEN [[id number]] CLINICAL HISTORY: ??This is an asymptomatic 64 y.o. patient. INDICATION FOR EXAM: Mammogram Screening. TECHNIQUE: CC and MLO views were obtained. ??This study was evaluated with the assistance of Computer-Aided Detection. Breast Tomosynthesis was used in interpretation. COMPARISON FILM: Yes 04/17/24 [facility] 04/16/23 [facility] FINDINGS: ??The breasts are heterogeneously dense, which may obscure small masses. There are no dominant masses, suspicious micro calcifications or areas of architectural distortion. Authorizing ProviderResult TypeResult StatusBridget Fatoumata Nelson PAMAMMOFinal Result * (ABNORMAL) LIPID PANEL W REFLEX MEASURED LDL (04/30/2025 1:38 PM PRINCIPAL BIOINFORMATICS SPECIALIST)Component ValueRef RangeTest MethodAnalysis TimePerformed AtPathologist Signature CHOLESTEROL, BUKFX631(H)<200 mg/dL05/01/2025 5:27 AM [facility]ST[facility] KZCDHCLJHSZSZ66<150 mg/dL05/01/2025 5:27 AM CSTQUEST DIAGNOSTICSHDL BFMUKCIAUNT93> OR = 50 mg/dL05/01/2025 5:27 AM CSTQUEST DIAGNOSTICSNON HDL VJGLCLGWNKL179(H)<130 mg/dL (calc)05/01/2025 5:27 AM [facility]ST[facility] Comment: For patients with diabetes plus 1 major ASCVD risk factor, treating to a non-HDL-C goal of <100 mg/dL (LDL-C of <70 mg/dL) is considered a therapeutic option. CHOL/HDLC RATIO3.0<5.0 (calc)05/01/2025 5:27 AM CST[facility] LDL-WYXPSTKOEMO714(H)mg/dL (calc)05/01/2025 5:27 AM CSTQUEST DIAGNOSTICSComment: Reference range: <100 Desirable range <100 mg/dL for primary prevention; <70 mg/dL for patients with CHD or diabetic patients with > or = 2 CHD risk factors. LDL-C is now calculated using the Juan Pablo calculation, which is a validated novel method providing better accuracy than the Friedewald equation in the estimation of LDL-C. Jey LEIGH et al. GRAZYNA. 2013;310(19): 9923-4275 (http://education.[employer]/faq/HOM411) Specimen (Source)Anatomical Location / LateralityCollection Method / Volume Collection TimeReceived TimeBloodBLOOD SPECIMEN / UnknownQuest Collect / Unknown 04/30/2025 1:38 PM CST04/30/2025 1:38 PM PRINCIPAL BIOINFORMATICS SPECIALIST Narrative Authorizing ProviderResult TypeResult StatusCelia Nelson PACHEMISTRY Final ResultPerforming OrganizationAddressCity/State/ZIP CodePhone Number [employer] [facility] [address] [place] [address], [place] [phone] * GLUCOSE, RANDOM (04/30/2025 1:38 PM PRINCIPAL BIOINFORMATICS SPECIALIST)ComponentValueRef RangeTest Method Analysis TimePerformed AtPathologist SignatureGLUCOSE, EJUQSJ36<140 mg/dL 05/01/2025 5:27 AM CSTQUEST DIAGNOSTICSSpecimen (Source)Anatomical Location / LateralityCollection Method / VolumeCollection TimeReceived TimeBloodBLOOD SPECIMEN / UnknownQuest Collect / Noyfsse8004/30/2025 1:38 PM CST04/30/2025 1:38 PM PRINCIPAL BIOINFORMATICS SPECIALIST Narrative Authorizing ProviderResult TypeResult StatusCelia Nelson PACHEMISTRY Final ResultPerforming OrganizationAddressCity/State/ZIP CodePhone Number [employer] [address] [address], [place] [phone] * SCAN-RADIOLOGY REPORT (04/11/2025 12:00 AM PRINCIPAL BIOINFORMATICS SPECIALIST)Anatomical RegionLaterality ModalityOther Narrative Authorizing ProviderResult TypeResult StatusScannerOTHERFinal Result * SCAN-COLONOSCOPY (12/20/2023 2:00 PM CDT) Narrative Procedure Note Mónica Vale MD - 12/20/2023 1:01 PM CDT [facility] [address], [address], [place] [address] Patient Name: Joo Celaya Gender: Female Exam Date: 12/20/2023 Visit Number: [id number] Age: 63 Years Date of : 1960 Attending MD: Mónica Vale MD Medical Record#: [id number] Procedure: Colonoscopy Indications: Colorectal cancer screening Referring MD: Referral Self Primary MD: Celia CORNELIUS Medications: Admitting Medications: 0.9% Normal Saline at TKO Intra Procedure Medications: Patient received monitored anesthesia care. Complications: No immediate complications Procedure: An examination of the heart and lungs was performed and found to be within acceptable limits. . The patient was therefore deemed [...] gastric foldsis 34 centimeters from the incisors. Warner colored mucosa suspicious for short segment Hunter's esophagus. Description - islands or tongues. C and M [...] signed by: Alfonso Jimenez MD Interpreted at [facility], [address] [place] [address] Orders Instruction(s)/Education: Instruction/Education Timeframe Assessment Hunter's Esophagus K44.9 Colon Cancer Prevention K44.9 Final Plan: Repeat colonoscopy in 10 years for screening. If you have signs orsymptoms of lower GI illness or a new diagnosis of colon cancer in animmediate family member, you should contact [facility] or your primary providerto discuss whether your [...] Mónica Vale MD 12/20/2023 cc: Celia CORNELIUS Authorizing ProviderResult TypeResult StatusShkwame Vale MDOTHERFinal Result * (ABNORMAL) XR DXA BONE DENSITY 2 SITES AXIAL (04/16/2023 9:12 AM PRINCIPAL BIOINFORMATICS SPECIALIST) Anatomical RegionLateralityModalitySpine, HIPS, HIPL, HIPROtherSpecimen (Source)Anatomical Location / LateralityCollection Method / VolumeCollection TimeReceived Time Impressions 04/24/2023 9:06 AM PRINCIPAL BIOINFORMATICS SPECIALIST Osteopenia. RECOMMENDATIONS: The National Osteoporosis Foundation recommends [...] recommended in 2-3 years. Celia Nelson PA-C [facility] 04/24/2023 ?? Narrative 04/24/2023 9:06 AM PRINCIPAL BIOINFORMATICS SPECIALIST For Patients: Results are automatically released to your [facility] ([employer]) account once available, in compliance with federal regulations. This means that you may see your results before your provider has had a chance to review them. Please allow 2-3 business days for your provider to comment on the results. XR DXA Bone Mineral Density (BMD) EXAM LOCATION: [address] [address] PATIENT NAME: Joo Celaya DATE OF : 1960 EXAM DATE: 04/16/2023 [...] two scanners are made by the same ore tester. PROCEDURE: Dual-energy x-ray absorptiometry performed with routine [...] 15.3%. 10-year probability of hip fracture: 3.0%. Authorizing ProviderResult TypeResult StatusBridget Fatoumata Nelson PADEXAFinal Result * ANTI HCV [[id number]] (04/25/2015 9:29 AM PRINCIPAL BIOINFORMATICS SPECIALIST)ComponentValueRef RangeTest Method Analysis TimePerformed AtPathologist SignatureHEPATITIS C ANTIBODYNon-Reactive Non-Reactive 04/25/2015 6:14 PM CSTSENTARA [facility]-CENTRAL LABORATORYSpecimen (Source)Anatomical Location / LateralityCollection Method / VolumeCollection TimeReceived TimeBlood specimen (specimen)BLOOD SPECIMEN / UnknownVenipuncture / Yqdlzlq5604/25/2015 9:29 AM CST04/25/2015 9:29 AM PRINCIPAL BIOINFORMATICS SPECIALIST Narrative [facility] - 04/25/2015 6:14 PM PRINCIPAL BIOINFORMATICS SPECIALIST Antibodies to HCV not detected; does not exclude the possibility of exposure to HCV. Authorizing ProviderResult TypeResult StatusBridget Fatoumata Neslon PASDAVON OUTS Final ResultPerforming OrganizationAddressCity/State/ZIP CodePhone Number [facility] [address] [place] [address], from Last 3 Months or Most Recently Relevant to Health Maintenance Insurance * Guarantor: Martir Celaya TypeRelation to PatientDate of BirthPhone Billing AddressPersonal/FkjbeqDqsynq1960 [address] [address] Care Teams Team MemberRelationshipSpecialtyStart DateEnd Date Celia Nelson PA [address] [facility] [facility] [address] PCP - GeneralFamily Practice11/01/14
--- OUTSIDE RECORDS SUMMARY | 2025-05-12 14:49 | XMS_ITS | Clinical Summary ---
Author Organization [facility] Address [address] [place] [address] Care Team Providers Care Heddler Name Role Phone Unavailable Primary Care Provider Unavailabl e Allergies Active AllergyReactionsCriticalityNoted DateCommentsAzithromycinGI intolerance 08/24/2018 Stomach ache Medications MedicationSigDispense QuantityRefillsLast FilledStart DateEnd DateStatus pantoprazole (ProtoNix) 20 mg EC tablet Take 20 mg by mouth in the morning.04/16/2023ctive cetirizine (ZyrTEC) 10 mg tablet Take by mouth.Active fluticasone (Flonase) 50 mcg/actuation nasal spray Administer 1 spray into each nostril in the morning. Shake gently. Before first use, prime pump. After use, clean tip and replace cap.Active diphenhydrAMINE (BENADryl) 25 mg capsule Take 25 mg by mouth every 6 (six) hours if needed for itching.Active Active Problems ProblemNoted DateDiagnosed DateGERD (gastroesophageal reflux disease)05/22/2023 H/O total nnuhijupqwny35/27/2022 Social History Tobacco UseTypesPacks/DayYears UsedDateSmoking Tobacco: NeverSmokeless Tobacco: Never Tobacco Cessation:Counseling Given: Not Answered CommentsUnknownSex and Gender InformationValueDate RecordedSex Assigned at BirthNot on fileLegal CpgWylzwr46/27/2023 9:42 AM CSTGender IdentityNot on fileSexual OrientationNot on file Plan of Treatment Not on file
--- NOTE | 2025-05-12 15:22 | CRLHL7_ITS ---
For Patients: As a result of the Century Cures Act, medical imaging exams and procedure reports are released immediately into your electronic medical record. You may view this report before your referring provider. If you have questions, please contact your health care provider. INDICATION: CHEST PAIN, R/O PE. (Sic) COMPARISON: None available. TECHNIQUE: CT pulmonary angiography with 95 cc of Isovue 370 intravenous contrast. Reconstructed multiplanar MIP series were done. Please note that all CT scans at this facility use dose modulation, iterative reconstruction, and/or weight-based dosing when appropriate to reduce radiation dose to as low as reasonably achievable. FINDINGS: THORAX Pulmonary Arterial Vasculature: Opacification of the pulmonary arterial tree is adequate for assessment of pulmonary embolism. No pulmonary embolism. Visualized Lower Neck: No lower cervical adenopathy. Lungs: No significant pulmonary findings. Pleura: No pleural effusion. No pneumothorax. Mediastinum: Thoracic aorta and pulmonary trunk are normal in caliber. Borderline/mild cardiomegaly. Trachea and esophagus are normal in appearance. No mediastinal lymphadenopathy. ABDOMEN Visualized Upper Abdomen: No significant findings. SKELETON AND BODY WALL No acute or significant incidental findings. IMPRESSION: 1. No pulmonary embolism. 2. No other findings to explain chest pain, not otherwise specified. Please note that all CT scans at this facility use dose modulation, iterative reconstruction, and/or weight-based dosing when appropriate to reduce radiation dose to as low as reasonably achievable. Dictated by Yuri Waters MD @ 05/12/2025 4:31:32 PM (Electronically Signed)
--- NOTE | 2025-05-12 15:24 | ED_ITS ---
HPI - General Adult General Chief complaint: Chest Pain Stated complaint: Chest pain Time Seen by Provider: 05/12/25 14:48 History of Present Illness HPI narrative: Patient is a 64-year-old white female without any history of coronary artery disease or chronic lung disease. Patient presents with 2 day history of some substernal chest discomfort that seems to be worse with activity or worse she states if she does a forward flexion of her neck and upper chest. She denies significant shortness of breath denies fever, chills, leg swelling or edema, she has had no bleeding or clotting history. She has been generally quite healthy other than some orthopedic issues. She does report also history of dyspepsia where she used to the regurgitate a liquid feeling and has not had that for a while this feels different than that. This has been fairly steady in discomfort for the last couple of days. The patient went to Urgent Care she could get into her regular doctor and they sent her by ambulance to the ER. They were concerned that her EKG appeared different than prior. She reports a family history of her mother having open heart surgery in her 80s. She is nondiabetic, has normal cholesterol by her report and does not smoke. 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 EKG done in the ambulance by paramedics showed PACs., also first-degree AV block. This is not evident on EKG done in the ER. Related Data Home Medications ?Medication ?Instructions ?Recorded ?Confirmed fluticasone propionate 50 intranasal 12/25/21 05/12/25 mcg/actuation nasal spray,suspension ojwquceg-emc-bofdsxd sulfate .Route 12/25/21 05/12/25 cetirizine 10 mg tablet (24Hour 5 mg PO DAILY PRN 06/2705/12/25 Allergy) pantoprazole 20 mg tablet,delayed 20 mg PO DAILY 07/1405/12/25 release Allergies Allergy/AdvReac Type Severity Reaction Status Date / Time azithromycin Allergy Intermediate stomach Verified 05/12/25 14:55 pain Review of Systems Status of ROS: Reports: 10 or more systems reviewed and unremarkable except as noted in History and below [facility] Medical History History of rheumatoid arthritis ?Z87.39 - Personal history of other diseases of the musculoskeletal system and connective tissue (ICD-10) Stress fracture ?M84.30XA - Stress fracture, unspecified site, initial encounter for fracture (ICD-10) Left shoulder pain ?M25.512 - Pain in left shoulder (ICD-10) Injury of left shoulder ?S49.92XA - Unspecified injury of left shoulder and upper arm, initial encounter (ICD-10) Encounter for preoperative screening laboratory testing for severe acute respiratory syndrome coronavirus 2 (SARS-CoV-2) ?Z01.812 - Encounter for preprocedural laboratory examination (ICD-10) ?Z20.822 - Contact with and (suspected) exposure to covid-19 (ICD-10) Recurrent sinusitis ?J32.9 - Chronic sinusitis, unspecified (ICD-10) Surgical History History of hip surgery (01/05/25) ?Z98.890 - Other specified postprocedural states (ICD-10) S/P arthroscopic partial medial meniscectomy of left knee (02/14/23) ?Z98.890 - Other specified postprocedural states (ICD-10) ?Z87.828 - Personal history of other (healed) physical injury and trauma (ICD-10) History of arthroscopic knee surgery ?Z98.890 - Other specified postprocedural states (ICD-10) History of bunionectomy of left great toe (12/25/21) ?Z98.890 - Other specified postprocedural states (ICD-10) History of bunionectomy (07/05/15) ?Z98.890 - Other specified postprocedural states (ICD-10) Status post right rotator cuff repair (02/15/17) ?Z98.890 - Other specified postprocedural states (ICD-10) Status post left rotator cuff repair (04/28/20) ?Z98.890 - Other specified postprocedural states (ICD-10) Hx of cholecystectomy ?Z90.49 - Acquired absence of other specified parts of digestive tract (ICD- 10) H/O total hysterectomy ?Z90.710 - Acquired absence of both cervix and uterus (ICD-10) Social History Smoking Status: Never smoker Do you use any of these nicotine containing products: None How often do you have a drink containing alcohol: monthly or less Alcohol type: hard liquor How many standard drinks containing alcohol do you have on a typical day: 1 or 2 How often do you have six or more drinks on one occasion: Never AUDIT-C Alcohol total score: 1 Non-prescribed substance use: denies use Caffeine: Yes Are you using contraception or practicing any form of control: No service: No Exam Narrative: Exam Narrative: Objective vital signs are within normal limits other than slightly elevated systolic pressure The patient received aspirin in the ambulance that she was brought in by. HEENT is unremarkable no facial asymmetry no scleral icterus, neck is supple, chest clear no rales or wheezing , heart rhythm regular without murmur, abdomen benign soft , extremities are no edema Neurologic nonfocal Normal peripheral perfusion noted Const: Vital Signs, click to edit/add: Vital Signs - 24 hr 05/12/25 15:47 05/12/25 16:14 05/12/25 16:15 Pulse Rate 87 92 94 Respiratory Rate 14 13 Blood Pressure 143/85 H 157/89 H Pulse Oximetry 96 93 93 Oxygen Delivery Me thod 05/12/25 16:17 05/12/25 16:21 05/12/25 16:22 Pulse Rate 97 100 97 Respiratory Rate 13 Blood Pressure 155/85 H 152/94 H Pulse Oximetry 97 97 98 Oxygen Delivery Me thod 05/12/25 16:27 05/12/25 16:30 05/12/25 16:32 Pulse Rate 94 92 93 Respiratory Rate 12 Blood Pressure 146/84 H 136/84 Pulse Oximetry 95 96 97 Oxygen Delivery Me thod 05/12/25 16:37 05/12/25 16:38 05/12/25 16:42 Pulse Rate 92 89 89 Respiratory Rate 13 20 Blood Pressure 129/79 123/84 Pulse Oximetry 97 95 95 Oxygen Delivery Me thod 05/12/25 16:45 05/12/25 16:47 05/12/25 16:52 Pulse Rate 93 93 90 Respiratory Rate Blood Pressure 123/71 116/73 Pulse Oximetry 96 94 97 Oxygen Delivery Me thod 05/12/25 16:57 05/12/25 17:02 05/12/25 17:07 Pulse Rate 101 H 97 85 Respiratory Rate 12 14 16 Blood Pressure 141/93 H 145/86 H 141/79 H Pulse Oximetry 98 99 98 Oxygen Delivery Me thod Room Air Room Air Room Air 05/12/25 17:12 05/12/25 17:17 05/12/25 17:22 Pulse Rate 92 86 85 Respiratory Rate 16 16 16 Blood Pressure 133/85 138/81 152/86 H Pulse Oximetry 98 97 96 Oxygen Delivery Me thod Room Air Room Air Room Air 05/12/25 17:27 05/12/25 17:31 05/12/25 17:37 Pulse Rate 90 87 Respiratory Rate 16 16 16 Blood Pressure 132/81 134/77 128/75 Pulse Oximetry 98 94 Oxygen Delivery Me thod Room Air Room Air Room Air 05/12/25 17:42 05/12/25 17:47 05/12/25 17:52 Pulse Rate 91 91 88 Respiratory Rate 12 12 14 Blood Pressure 122/75 126/80 128/68 Pulse Oximetry 93 93 95 Oxygen Delivery Me thod Room Air Room Air Room Air 05/12/25 17:57 05/12/25 18:07 05/12/25 18:12 Pulse Rate 86 94 86 Respiratory Rate 13 16 16 Blood Pressure 140/86 H 145/87 H 138/79 Pulse Oximetry 97 95 96 Oxygen Delivery Me thod Room Air Room Air Room Air 05/12/25 18:16 05/12/25 18:22 05/12/25 18:26 Pulse Rate 90 99 77 Respiratory Rate 14 16 14 Blood Pressure 136/89 132/87 130/75 Pulse Oximetry 96 95 95 Oxygen Delivery Me thod Room Air Room Air Room Air 05/12/25 18:27 05/12/25 18:30 05/12/25 18:31 Pulse Rate 93 86 85 Respiratory Rate 11 L Blood Pressure 133/82 Pulse Oximetry 93 95 96 Oxygen Delivery Me thod 05/12/25 18:37 05/12/25 18:42 05/12/25 18:45 Pulse Rate 83 91 88 Respiratory Rate 17 23 27 H Blood Pressure 128/72 137/84 Pulse Oximetry 95 99 97 Oxygen Delivery Me thod 05/12/25 18:47 05/12/25 18:52 05/12/25 18:57 Pulse Rate 84 71 83 Respiratory Rate 15 11 L 20 Blood Pressure 138/85 137/81 132/83 Pulse Oximetry 98 98 96 Oxygen Delivery Me thod 05/12/25 19:00 05/12/25 19:02 Pulse Rate 71 73 Respiratory Rate 18 12 Blood Pressure 134/74 Pulse Oximetry 96 97 Oxygen Delivery Me thod Course Vital Signs Vital signs: Initial Vital Signs Temperature 98.0 F 05/12/25 14:58 Temperature Source Temporal Artery Scan 05/12/25 14:58 Pulse Rate 93 05/12/25 14:58 Respiratory Rate 20 05/12/25 14:58 Blood Pressure 165/91 H 05/12/25 14:58 Blood Pressure Mean 115 H 05/12/25 14:58 Pulse Oximetry 95 05/12/25 14:58 Oxygen Delivery Method Room Air 05/12/25 14:58 Vital Signs Temperature 98.0 F 05/12/25 14:58 Pulse Rate 93 05/12/25 14:58 Respiratory Rate 20 05/12/25 14:58 Blood Pressure 165/91 H 05/12/25 14:58 Pulse Oximetry 95 05/12/25 14:58 Oxygen Delivery Method Room Air 05/12/25 14:58 Temperature 98.0 F 05/12/25 14:58 Pulse Rate 73 05/12/25 19:02 Respiratory Rate 12 05/12/25 19:02 Blood Pressure 134/74 05/12/25 19:02 Pulse Oximetry 97 05/12/25 19:02 Oxygen Delivery Method Room Air 05/12/25 18:26 Medications Administered Medications: Discontinued Medications Generic Name Dose Route Start Last Admin Trade Name Freq PRN Reason Stop Dose Admin Heparin Sodium (Porcine) 3,300 unit 05/12/25 15:38 05/12/25 16:15 Heparin 5,000 Unit/0.5 Ml Inj 60 unit/kg (3300 unit) 05/12/25 15:39 3,300 unit IVP Administration ONCE ONE Sodium Chloride 500 mls @ 500 mls/hr 05/12/25 15:22 05/12/25 18:06 0.9 % Sodium Chloride 500 Ml IV 05/12/25 16:21 Infused .Q1H ONE Infusion Heparin Sodium/Dextrose 25,000 unit in 500 mls @ 0 mls/hr 05/12/25 15:45 05/12/25 16:17 Heparin IV 650 unit/hr .Q0M KENN 13 mls/hr Protocol Administration Per Protocol Nitroglycerin/Dextrose 25,000 mcg in 250 mls @ 3 mls/hr 05/12/25 15:38 05/12/25 16:18 Nitroglycerin/Dextrose IVPB 5 mcg/min .TITRATE PRN 3 mls/hr Protocol Administration 5 MCG/MIN Morphine Sulfate 2 mg 05/12/25 15:55 05/12/25 16:21 Morphine 2 Mg/Ml Inj IVP 05/12/25 15:56 2 mg ONCE ONE Administration Pantoprazole Sodium 40 mg 05/12/25 15:22 05/12/25 16:14 Pantoprazole Sodium 40 Mg Inj IVP 05/12/25 15:23 40 mg ONCE ONE Administration Medical Decision Making MDM Narrative Medical decision making narrative: 64-year-old female with 2 day episodes of substernal chest discomfort worse with forward flexion of her chest and deep breathing and activity. Likely this is more pleuritic type discomfort. However I think ruling out PE ruling out acute coronary syndrome ruling out other intrathoracic pathology would be appropriate. At this point given her situation and symptoms and the duration would simply do chest CT with IV contrast to rule out PE and other intra a pulmonary process such as pneumonia. Would also do a high sensitivity troponin and laboratory studies to rule out acute coronary syndrome. IA suspect given her symptoms that this is more of muscular chest wall inflammatory type condition, but would be careful to exclude these other worrisome conditions. Will review the above- mentioned lab studies and disposition pending their findings. We will change of shift and will have 1 of my colleagues follow up the patient's lab results and make disposition planning. Addendum 3:41 p.m.: Patient reports that she still has a little occasional tightness in her chest and she will be started on IV nitroglycerin drip and heparin bolus and drip. Her high sensitivity point of care troponin is elevated. I will talk to Cardiology. Likely transfer for imaging such as CT angio or angiogram and possibly stenting. Will confirm with a troponin I in the lab as well. Addendum 4:[address]darrah humble Zhou. Agrees with transfer. Also agrees with CT scanning prior to transfer, there might be some delay of 4-6 hours. The patient has been on heparin and nitro will give her some morphine as well. She received aspirin in the ambulance. She does have an elevated troponin, will confirm that with a troponin I. Has been accepted by [facility] and just awaiting bed placement then will go by ground ambulance transfer sheets completed patient is in stable condition for transfer. Lab Data Labs: Lab Results 05/12/25 05/12/25 05/12/25 Range/Units 15:05 15:23 15:30 WBC 8.90 (4.50-11.00) K/uL RBC 4.75 (4.00-5.20) m/uL Hgb 13.9 (12.0-16.0) gm/dL Hct 43.9 (33.0-51.0) % MCV 92 (80-100) fL MCH 29 (26-34) pg MCHC 32 (32-36) gm/dL RDW Coeff of Marilee 12.5 (11.5-15.5) % Plt Count 277 (140-440) K/uL Neut % (Auto) 70.7 (42.0-72.0) % Lymph % (Auto) 16.1 L (20-44) % [place] % (Auto) 11.6 H (0.0-11.0) % Eos % (Auto) 1.2 (0.0-7.0) % Baso % (Auto) 0.1 (0.0-3.0) % Neut # (Auto) 6.29 (1.7-7.0) K/uL Lymph # (Auto) 1.40 (0.90-2.90) K/uL [place] # (Auto) 1.00 H (0.00-0.90) K/UL Eos # (Auto) 0.11 (0.00-0.50) K/uL Baso # (Auto) 0.01 (0.00-0.30) K/uL Abs Immat Gran (auto) 0.03 (0.00-0.30) K/uL Imm/Tot Granulo (auto) 0.3 % INR 0.90 L (0.91-1.10) APTT 27 (23-33) Seconds Sodium 135 (135-149) mmol/L Potassium 3.4 L (3.6-5.1) mmol/L Chloride 101 (96-114) mmol/L Carbon Dioxide 29 (20-32) mmol/L Anion Gap 5 L (7-15) mEq/L BUN 19 (7-30) mg/dL Creatinine 0.6 (0.5-1.5) mg/dL Estimated Creat Clear 47.55 Estimated GFR 99 ml/min Glucose 85 (60-115) mg/dL Lactate 0.9 (0.5-1.9) mmol/L Calcium 8.6 (8.4-10.6) mg/dL Total Bilirubin 0.5 (0.1-1.5) mg/dL Direct Bilirubin 0.2 (0.0-0.5) mg/dL AST 32 (12-35) U/L ALT 23 (4-35) U/L Alkaline Phosphatase 75 (40-150) U/L Troponin I < 0.01 (0.01-0.04) ng/mL POC Troponin I High Sensi 24.7 H* (2.9-13.0) pg/mL C-Reactive Protein < 0.5 L (0.5-1.0) mg/dL NT-Pro-B Natriuret Pep 139 (See Note) pg/mL Total Protein 7.0 (6.0-8.3) g/dL Albumin 4.3 (3.3-5.0) g/dL SARS-CoV-2 (PCR) (Negative) Influenza Type A (PCR) (Negative) Influenza Type B (PCR) (Negative) RSV (PCR) (Negative) POC Creatinine 0.6 (0.6-1.3) mg/dl 05/12/25 05/12/25 Range/Units 15:32 17:10 WBC (4.50-11.00) K/uL RBC (4.00-5.20) m/uL Hgb (12.0-16.0) gm/dL Hct (33.0-51.0) % MCV (80-100) fL MCH (26-34) pg MCHC (32-36) gm/dL RDW Coeff of Marilee (11.5-15.5) % Plt Count (140-440) K/uL Neut % (Auto) (42.0-72.0) % Lymph % (Auto) (20-44) % [place] % (Auto) (0.0-11.0) % Eos % (Auto) (0.0-7.0) % Baso % (Auto) (0.0-3.0) % Neut # (Auto) (1.7-7.0) K/uL Lymph # (Auto) (0.90-2.90) K/uL [place] # (Auto) (0.00-0.90) K/UL Eos # (Auto) (0.00-0.50) K/uL Baso # (Auto) (0.00-0.30) K/uL Abs Immat Gran (auto) (0.00-0.30) K/uL Imm/Tot Granulo (auto) % INR (0.91-1.10) APTT (23-33) Seconds Sodium (135-149) mmol/L Potassium (3.6-5.1) mmol/L Chloride (96-114) mmol/L Carbon Dioxide (20-32) mmol/L Anion Gap (7-15) mEq/L BUN (7-30) mg/dL Creatinine (0.5-1.5) mg/dL Estimated Creat Clear Estimated GFR ml/min Glucose (60-115) mg/dL Lactate (0.5-1.9) mmol/L Calcium (8.4-10.6) mg/dL Total Bilirubin (0.1-1.5) mg/dL Direct Bilirubin (0.0-0.5) mg/dL AST (12-35) U/L ALT (4-35) U/L Alkaline Phosphatase (40-150) U/L Troponin I (0.01-0.04) ng/mL POC Troponin I High Sensi 23.8 H* (2.9-13.0) pg/mL C-Reactive Protein (0.5-1.0) mg/dL NT-Pro-B Natriuret Pep (See Note) pg/mL Total Protein (6.0-8.3) g/dL Albumin (3.3-5.0) g/dL SARS-CoV-2 (PCR) Negative SARS-CoV-2 (Negative) Influenza Type A (PCR) Negative PCR FLU A (Negative) Influenza Type B (PCR) Negative PCR FLU B (Negative) RSV (PCR) Negative PCR RSV (Negative) POC Creatinine (0.6-1.3) mg/dl Discharge Plan Discharge Clinical Impression: Chest pain, History of gastroesophageal reflux (GERD), Elevated troponin Patient Disposition: [facility] Prescriptions: No Action fluticasone propionate 50 mcg/actuation spray,suspension INTRANASAL Patient Comments: SPRAY 1 SPRAY INTO BOTH NOSTRILS ONCE DAILY. ysymzsyv-fdb-adwcctv sulfate [One Daily Multi-Vit w-Mineral] .Route cetirizine [24Hour Allergy] 10 mg tablet 5 mg PO DAILY PRN pantoprazole 20 mg tablet,delayed release (DR/EC) 20 mg PO DAILY Stand Alone Forms: [employer] Info Instructions
[2025-05-12 15:28] LABS: Lactate* 0.9 mmol/L (0.5-1.9)
[2025-05-12 15:34] LABS: Hematocrit* 43.9 % (33.0-51.0); Hemoglobin* 13.9 gm/dL (12.0-16.0); Immature Granulocytes Abs Auto 0.03 K/uL (0.00-0.30); Immature Granulocytes Pct Auto 0.3 %; Lymphocytes Absolute Auto 1.40 K/uL (0.90-2.90); Mean Corpuscular HGB Conc 32 gm/dL (32-36); Mean Corpuscular Hemoglobin 29 pg (26-34); Mean Corpuscular Volume 92 fL (80-100); RDW Coefficient of Variation % 12.5 % (11.5-15.5); Red Blood Count* 4.75 m/uL (4.00-5.20); Slide Review Reflex No; White Blood Count* 8.90 K/uL (4.50-11.00)
[2025-05-12 15:46] LABS: Albumin* 4.3 g/dL (3.3-5.0); Chloride* 101 mmol/L (96-114); Potassium* 3.4 mmol/L (3.6-5.1); Sodium* 135 mmol/L (135-149)
[2025-05-12 15:48] LABS: Blood Urea Nitrogen* 19 mg/dL (7-30); Creatinine* 0.6 mg/dL (0.5-1.5); Est. Creatinine Clearance* 47.55; Estimated Glomerular Filt Rate 99 ml/min
[2025-05-12 15:49] LABS: Alanine Aminotransferase* 23 U/L (4-35); Alkaline Phosphatase* 75 U/L (40-150); Anion Gap 5 mEq/L (7-15); Aspartate Amino Transferase* 32 U/L (12-35); Bilirubin Direct* 0.2 mg/dL (0.0-0.5); Bilirubin Total* 0.5 mg/dL (0.1-1.5); Calcium* 8.6 mg/dL (8.4-10.6); Carbon Dioxide* 29 mmol/L (20-32); Glucose* 85 mg/dL (60-115); Total Protein* 7.0 g/dL (6.0-8.3)
[2025-05-12 15:59] LABS: INR 0.90 (0.91-1.10); Prothrombin Time 12.9 Seconds
[2025-05-12 16:01] LABS: NT Pro B Type NatriureticPept* 139 pg/mL (See Note)
[2025-05-12 16:03] LABS: Creatinine, Point-of-Care* 0.6 mg/dl (0.6-1.3)
[2025-05-12] MEDS: 0.9 % SODIUM CHLORIDE 500 ML 500 ML IV (16:13)
[2025-05-12] MEDS: PANTOPRAZOLE SODIUM 40 MG INJ IVP (16:14)
[2025-05-12] MEDS: HEPARIN 5,000 UNIT/0.5 ML INJ 3300 UNIT IVP (16:15)
[2025-05-12] MEDS: HEPARIN 25,000 UNIT/500 ML BAG 13 UNIT IV (16:17)
[2025-05-12] MEDS: NITROGLYCERIN/DEXTROSE 25,000 MCG/250 ML BOTTLE 3 MCG IVPB (16:18)
[2025-05-12 16:26] LABS: PCR FLU A Negative PCR FLU A (Negative); PCR FLU B Negative PCR FLU B (Negative); PCR RSV Negative PCR RSV (Negative); SARS PCR* Negative SARS-CoV-2 (Negative)
== END 2025-05-12 19:56 | disposition short-term general hospital (02) ==
PROVIDERS: Emergency Provider Family Medicine; PCP Physician Assistant Medical
DX: R07.89 Other chest pain (principal)
CPT/HCPCS: 36415; 71275; 80048; 80076; 82565; 83605; 83880; 84484; 85025; 85027; 85610; 85730; 86140; 87631; 93005; 94761; 96361; 96374; 96375; 99285; J1644; J2270; J2470; J7030; Q9967

== ENCOUNTER 2025-05-12 19:39 | Outpatient (CLI) | payer BC, SELFPAY | END 2025-05-12 19:40 | disposition home or self-care (01) | LOC: AMB 05-16 18:10 | PROVIDERS: PCP Physician Assistant Medical; Visit Provider Emergency Medicine Emergency Medical Services | DX: R07.89 Other chest pain (principal); R79.89 Other specified abnormal findings of blood chemistry; Z87.19 Personal history of other diseases of the digestive system | CPT/HCPCS: A0425; A0434 ==